=== PATIENT | female | born 1995 | race Two or more races ===

== ENCOUNTER 2023-02-16 15:29 | Outpatient (OUT) | payer BC, OTHER, SELFPAY ==
[2023-02-16 16:31] LABS: HCG Quantitative 223 mIU/mL
== END 2023-02-16 15:30 | disposition home or self-care (01) ==
LOC: LAB 15:41
PROVIDERS: Visit Provider Obstetrics & Gynecology
DX: N92.6 Irregular menstruation, unspecified (principal)
CPT/HCPCS: 36415; 84702

== ENCOUNTER 2023-02-18 15:23 | Outpatient (OUT) | payer BC, OTHER, SELFPAY ==
[2023-02-18 16:17] LABS: HCG Quantitative 393 mIU/mL
== END 2023-02-18 15:24 | disposition home or self-care (01) ==
LOC: LAB 15:25
PROVIDERS: Visit Provider Obstetrics & Gynecology
DX: N92.6 Irregular menstruation, unspecified (principal)
CPT/HCPCS: 36415; 84702

== ENCOUNTER 2023-02-21 15:47 | Outpatient (OUT) | payer BC, OTHER, SELFPAY ==
[2023-02-21 18:04] LABS: HCG Quantitative 1430 mIU/mL
== END 2023-02-21 15:48 | disposition home or self-care (01) ==
LOC: LAB 15:50
PROVIDERS: Visit Provider Obstetrics & Gynecology
DX: N92.6 Irregular menstruation, unspecified (principal)
CPT/HCPCS: 36415; 84702

== ENCOUNTER 2023-02-23 15:27 | Outpatient (OUT) | payer BC, OTHER, SELFPAY ==
[2023-02-23 16:23] LABS: HCG Quantitative 2895 mIU/mL
== END 2023-02-23 15:28 | disposition home or self-care (01) ==
LOC: LAB 15:28
PROVIDERS: Visit Provider Obstetrics & Gynecology
DX: N92.6 Irregular menstruation, unspecified (principal)
CPT/HCPCS: 36415; 84702

== ENCOUNTER 2023-03-31 13:27 | Outpatient (OUT) | payer BC, OTHER, SELFPAY ==
--- NOTE | 2023-03-31 13:29 | US_ITS ---
[address] [address] Patient Name: LULI JOSE MRN: [id number] date: 1995 Sex: F Assigned Patient Location: US Current Patient Location: Accession/Order Number: [id number] Exam Date: 03/31/2023 13:29 Report Date: 04/01/2023 07:39 At the request of: DIANDRA MONTOYA Procedure: US OB transvaginal EXAMINATION: US OB transvaginal HISTORY: MISSED MENSES COMPARISON: No relevant comparison available. FINDINGS: Ibarra intrauterine gestation Gestational sac: 4.84 cm, 10 weeks 4 days CRL: 3.76 cm, 10 weeks 5 days Yolk sac: 5.1 mm Heart rate: 166 bpm Cervix: Closed, 5.2 cm The ovaries are normal in size. Area of anechoic echogenicity adjacent to the right ovary measuring 1.6 cm possibly an exophytic cyst. Clinical age unknown Ultrasound age: 10 weeks 5 days Ultrasound JARROD: 10/22/2023 US/US OB transvaginal IMPRESSION: Viable ibarra intrauterine gestation measuring 10 weeks 5 days Electronically authenticated by: RACHELLE CÁRDENAS Date: 04/01/2023 07:39
== END 2023-03-31 13:28 | disposition home or self-care (01) ==
LOC: US 13:28
PROVIDERS: Visit Provider Obstetrics & Gynecology
DX: Z34.91 Encounter for supervision of normal pregnancy, unspecified, first trimester (principal); N92.6 Irregular menstruation, unspecified
CPT/HCPCS: 76817

== ENCOUNTER 2023-03-31 14:34 | Outpatient (OUT) | payer BC, OTHER, SELFPAY ==
[2023-03-31 15:05] LABS: Basophils Absolute Auto 0.1 10^3/uL (0.0-0.1); Basophils Percent Auto 0.6 % (0.2-2.0); Eosinophils Absolute Auto 0.4 10^3/uL (0.0-0.7); Eosinophils Percent Auto 4.4 % (0.9-7.0); Hematocrit 41.4 % (36.0-48.0); Hemoglobin 13.8 g/dL (12.0-16.0); Immature Granulocytes Abs Auto 0.04 10^3/uL (0.00-0.03); Immature Granulocytes Pct Auto 0.4 % (0.0-0.5); Lymphocytes Absolute Auto 2.1 10^3/uL (1.2-3.8); Lymphocytes Percent Auto 22.5 % (20.5-60.0); Mean Corpuscular HGB Conc 33.3 g/dL (29.9-35.2); Mean Corpuscular Hemoglobin 31.4 pg (26.7-34.0); Mean Corpuscular Volume 94.3 fL (81.0-99.0); Mean Platelet Volume 12.1 fL (9.5-13.5); Monocytes Absolute Auto 0.6 10^3/uL (0.3-0.8); Monocytes Percent Auto 6.7 % (1.7-12.0); Neutrophils Percent Auto 65.4 % (43.0-75.0); Platelet Count 234 10^3/uL (150-450); Red Blood Count 4.39 10^6/uL (4.20-5.40); Red Cell Distribution Width 11.6 % (11.0-15.0); White Blood Count 9.3 10^3/uL (4.0-11.0)
[2023-03-31 15:20] LABS: Estimated Average Glucose 100 mg/dL; Glycohemoglobin A1C 5.1 % (4.5-6.2)
[2023-03-31 15:39] LABS: Thyroid Stimulating Hormone 0.949 uIU/mL (0.358-3.740)
[2023-04-02 06:08] LABS: HBsAg Screen Negative (Negative); HCV Ab Non Reactive (Non Reactive); HIV Ab/p24 Ag Screen Non Reactive (Non Reactive)
[2023-04-02 11:08] LABS: Rapid Plasma Reagin, Quant Non Reactive titer (NonRea<1:1)
== END 2023-03-31 14:35 | disposition home or self-care (01) ==
LOC: LAB 14:35
PROVIDERS: Visit Provider Obstetrics & Gynecology
DX: Z34.91 Encounter for supervision of normal pregnancy, unspecified, first trimester (principal); N92.6 Irregular menstruation, unspecified
CPT/HCPCS: 36415; 76817; 83036; 84443; 85025; 86592; 86762; 86803; 86850; 86900; 86901; 87086; 87340; 87389

== ENCOUNTER 2023-05-26 19:51 | Outpatient (REF) | payer OTHER, SELFPAY ==
--- OUTSIDE RECORDS SUMMARY | 2023-05-26 19:55 | XMS_ITS | CCD ---
Author Name Unknown Address [address] [place] [address] Organization [facility] Care Team Providers Care Sales Promotion Officer Name Role Phone Bobby Knox Unavailable DR DIANDRA MONTOYA Attending Unavailable JAN, DR JIM Consulting Unavailable DR DIANDRA MONTOYA Admitting Unavailable LILO, DR LAUREN Primary Care Unavailable LAN PETER Attending Unavailable DIANDRA MONTOYA Attending Unavailable Oralia Calvert Primary Care Unavailab Ayush Cadena Attending Unavailable Geovany Moran Admitting Unavailab Geovany Riley Admitting Unavailab Geovany Riley Attending Unavailab Oralia Ruggiero Primary Care Unavailab Hilary Celestin Primary Care Provide r HILARY LOMBARDI Attending Unavailable ORALIA CALVERT Referring Unavailable HILARY LOMBARDI Primary [facility] Unavailable Allergies Allergy Classification Reported Allergen(s) Allergy Type Date of Onset Reaction(s) Facility (2 sources) 1-octacosanol; Translations: [OCTACOSANOL] Drug Allergy 04-14-[address] [facility] Medications Current Medications Medication Drug Class(es) Dates Sig (Normalized) Sig (Original) [id number] 200 actuat albuterol 0.09 mg/actuat metered dose inhaler (1 source) beta2-Adrenergic Agonist take 2 puff(s) by inhalation every six hours as needed for wheezing albuterol (PROVENTIL HFA;VENTOLIN HFA) 90 mcg/actuation inhaler Inhale 2 puffs every 6 (six) hours as needed for wheezing. 0 Active cetirizine hydrochloride 10 mg oral tablet (2 sources) Histamine-1 Receptor Antagonist take 1 tablet by mouth in the morning cetirizine (ZyrTEC) 10 mg tablet Take 1 tablet (10 mg total) by mouth in the morning. 0 Active ZyrTEC Allergy A ctive vit no.808-qcmv-fzsze ( PLUS VITAMIN-MINERAL) 27 mg iron- 1 mg tablet (1 source) Start: 05-16-2023 vit no.798-tjvz-vymub ( PLUS VITAMIN-MINERAL) 27 mg iron- 1 mg tablet Take 1 tablet by mouth. 0 05/16/2023 Active sertraline 100 mg oral tablet (1 source) Serotonin Reuptake Inhibitor take 1 tablet by mouth in the morning sertraline (ZOLOFT) 100 mg tablet Take 1 tablet (100 mg total) by mouth in the morning. 0 Active Completed/Discontinued Medications Medication Drug Class(es) Dates Sig (Normalized) Sig (Original) ondansetron 4 mg disintegrating oral tablet (1 source) Serotonin-3 Receptor Antagonist Start: 04-17-2022 End: 05-19-2023 take 1 tablet by mouth every eight hours as needed for nausea ondansetron ODT (ZOFRAN ODT) 4 mg disintegrating tablet Dissolve 1 tablet (4 mg total) on tongue every 8 (eight) hours as needed for nausea for up to 10 doses. 10 tablet 0 04/17/2022 05/19/2023 Discontinued Problems Active Problems Problem Classification Problem Date Documented Da te Episodic/Chronic Mood disorders (3 sources) Major depressive disorder, recurrent, moderate; Translations: [Depressive disorder] Onset: 11-05-2022 05-19-2023 Chronic Unclassified (1 source) New Patient Onset: 05-19-2023 Past or Other Problems Problem Classification Problem Date Documented Date Episodic/Chronic Immunizations and screening for infectious disease (1 source) Encounter for screening for human papillomavirus (HPV); Translations: [ENC SCREENING HUMAN PAPILLOMAVIRUS] Onset: 11-03-2021 Episodic Inflammatory diseases of female pelvic organs (1 source) Acute vaginitis Onset: 04-22-2021 Resolved: 04-22-2021 Episodic Other screening for suspected conditions (not mental disorders or infectious disease) (4 sources) Encounter for screening for malignant neoplasm of cervix; Translations: [ENC SCREENING MALIG NEOPLASM CERV] Onset: 11-02-2021 Episodic Unclassified (1 source) Onset: 05-19-2023 05-19-2023 Results Test Name Value Interpretation Reference Range Facility Lipid Panelon 11-05-2022 Cholesterol [Mass/Vol] 152 mg/dL Normal 140-200 [facility] Comment on above: Result Comment: Chol less than 200 mg/dl low risk Chol 201-239 mg/dl borderline risk Chol 240 mg/dl and greater high risk Performed By: #### L IPID, TSH3 wRFLX, [id number] #### [facility] [address] [id number] [facility] Cholesterol in HDL [Mass/Vol] 46 mg/dL Normal 23-92 [facility] Comment on above: Result Comment: HDL CHOL ATP-III CLASSIFICATION Cardiovascular Risk HDL > or equal to 60 mg/dL LOW HDL < 40 mg/dL HIGH Performed By: #### L IPID, TSH3 wRFLX, [id number] #### [facility] [address] [place] [address] [facility] Cholesterol.total/Ch olesterol in HDL [Mass ratio] 3.3 {ratio} Normal <5.0 [facility] Comment on above: Performed By: #### L IPID, TSH3 wRFLX, [id number] #### [facility] [address] [id number] [facility] LDL Cholesterol,Calculat ed 85 mg/dL Normal 0-100 [facility] Comment on above: Result Comment: LDL ATP III CLASSIFICATION LDL less than 100 mg/dL Optimal LDL 100-129 mg/dL Near or above optimal LDL 130-159 mg/dL Borderline high LDL 160-189 mg/dL High LDL greater than 189 mg/dL Very high Performed By: #### L IPID, TSH3 wRFLX, [id number] #### [facility] [address] [place] [address] [place] Triglyceride w/Reflex 106 mg/dL Normal 0-149 [facility] Comment on above: Result Comment: TRIG ATP III CLASSIFICATION TRIG less than 150 mg/dL Normal TRIG 150-199 mg/dL Borderline high TRIG 200-500 mg/dL High TRIG greater than 500 mg/dL Very high Standard traceable to the Center for Disease Conrtrol and Prevention (CDC) test method. Performed By: #### L IPID, TSH3 wRFLX, [id number] #### [address] VLDL CHOLESTEROL 21 mg/dL Normal [facility] Comment on above: Performed By: #### L IPID, TSH3 wRFLX, [id number] #### [address] Thyroid Stim Hormone w/Rflxo n 11-05-2022 Thyroid Stim Hormone w/Rflx 1.37 u[iU]/mL Normal 0.45-5.33 [facility] Comment on above: Performed By: #### L IPID, TSH3 wRFLX, [id number] #### [address] Vitamin D 25 Hydroxy Totalon 11-05-2022 Vitamin D 25 Hydroxy Total 31.4 ng/mL Normal 30-100 [facility] Comment on above: Result Comment: ALEXANDRA MIN D STATUS 25(OH)VITAMIN D RANGE (ng/mL) Deficient <20 Insufficient 20 to <30 Sufficient 30 to 100 Reference: Gerry MF,Levy NC, Gonzalo DINH, et al. Evaluation,treatment, and prevention of vitamin D deficiency; an Endocrine Society clinical practice guideline. JCEM. 2010; 96(7):1911-30. PERFORMED BY: [place] [address] PATHOLOGIST SENIOR CYBER SECURITY ANALYST MERISSA CONTI M.D. Performed By: #### L IPID, TSH3 wRFLX, [id number] #### [address] PAP ACOG PANEL 2: 21 to 29on 11-05-2021 . . [facility] Comment on above: Performed By: #### [id number] #### [facility] [address] [address] [address] Jeremiah Roberts Age Gdln ACOG Testing - Normal [facility] Comment on above: Performed By: #### [id number] #### [facility] [address] [place] [address] Dr. Jeremiah Roberts DIAGNOSIS: Comment Normal [facility] Comment on above: Result Comment: NEGA TIVE FOR INTRAEPITHELIAL LESION OR MALIGNANCY. Performed By: #### 4 [id number] #### [facility] [address] [place] [address] Dr. Jeremiah Roberts Methodology: Comment Normal [facility] Comment on above: Result Comment: This liquid based ThinPrep(R) pap test was screened with the use of an image guided system. Performed By: #### 4 [id number] #### [facility] [address] [place] [address] Dr. Jeremiah Roberts Note: Comment Normal [facility] Comment on above: Result Comment: The Pap smear is a screening test designed to aid in the detection of premalignant and malignant conditions of the uterine cervix. It is not a diagnostic procedure and should not be used as the sole means of detecting cervical cancer. Both false-positive and false-negative reports do occur. . Performed By: #### 4 [id number] #### [facility] [address] [place] [address] Dr. Jeremiah Roberts Performed by: Comment Normal [facility] Comment on above: Result Comment: Pancho Billy Ed Educational Aide (ASCP) Performed By: #### 4 [id number] #### [facility] [address] [place] [address] Dr. Jeremiah Roberts Reflex Criteria: Comment Normal [facility] Comment on above: Result Comment: The HPV DNA reflex criteria were not met with this specimen result therefore, no HPV testing was performed. . Performed By: #### 4 [id number] #### [facility] [address] [place] [address] Dr. Jeremiah Roberts Specimen adequacy: Comment Normal [facility] Comment on above: Result Comment: Sati sfactory for evaluation. Endocervical and/or squamous metaplastic cells (endocervical component) are present. Performed By: #### 4 [id number] #### [facility] [address] [place] [address] Dr. Jeremiah Roberts Consenton 08-27-2021 Consent [id number]. [id number]:127 [facility] Registrationon 08-27-2021 Registration [id number]. [id number]:127 [facility] Vital Signs Date Time Vital Sign Value Performing Clinician Deborahi lauren 05-19-2023 13:00-0500 Body mass index (BMI) [Ratio] 31.55 kg/m2 Hilary Lombardi COIL TIER-FLOUR WORKER Work Phone: [facility] 05-19-2023 13:00-0500 Body weight 75.75 kg Hilary Lombardi COIL TIER-FLOUR WORKER Work Phone: [facility] 05-19-2023 13:00-0500 Diastolic blood pressure 60 mm[Hg] Hilary Lombardi COIL TIER-FLOUR WORKER Work Phone: [facility] 05-19-2023 13:00-0500 Heart rate 96 /min Hilary Lombardi COIL TIER-FLOUR WORKER Work Phone: [facility] 05-19-2023 13:00-0500 Respiratory rate 16 /min Hilary Lombardi COIL TIER-FLOUR WORKER Work Phone: [facility] 05-19-2023 13:00-0500 SaO2% (BldA) [Mass fraction] 98 % Hilary Lombardi COIL TIER-FLOUR WORKER Work Phone: [facility] 05-19-2023 13:00-0500 Systolic blood pressure 110 mm[Hg] Hilary [facility] COIL TIER-FLOUR WORKER Work Phone: [facility] Encounters Encounter Date Encounter Type Care Provider Facility Start: 05-19-2023 End: 05-19-2023 ambulatory [facility] Start: 05-19-2023 End: 05-19-2023 Office outpatient new 20 minutes Hilary Lombardi COIL TIER-FLOUR WORKER Work Phone: [facility] Comment on above: Other depression (Pr imary Dx) Start: 04-28-2023 End: 04-28-2023 ambulatory DIANDRA MONTOYA Not Available Start: 04-14-2023 End: 04-14-2023 ambulatory LAN PETER Not Available Start: 03-31-2023 End: 03-31-2023 ambulatory LAN PETER Not Available Start: 02-19-2023 ambulatory Geovany Antoine acility:[facility] Start: 11-05-2022 End: 11-08-2022 Evaluation and management of inpatient Oralia Calvert Facility:[facility] Start: 11-02-2021 End: 11-02-[address] DIANDRA MONTOYA Facility: Start: 04-22-2021 End: 04-22-2021 ambulatory Bobby Knox Other [facility] Other Start: 04-22-2021 Telephone encounter Bobby [facility] [place] Plan of Treatment Date Care Activity Detail Author Start: 04-22-2030 DTaP,Tdap and Td Vaccines (8 - Td or Tdap) DTaP,Tdap and Td Vaccines (8 - Td or Tdap) [facility] Start: 05-19-2024 Adult BMI Follow Up Plan Adult BMI Follow Up Plan [facility] Start: 05-19-2024 Adult BMI Screening Adult BMI Screen ing [facility] Start: 05-19-2024 Tobacco Screening Tobacco Screening [facility] Start: 10-26-2023 End: 10-26-2023 Patient encounter procedure 10/26/2023 1:30 PM EDT Office Visit [facility] [address] [facility] [place] [address] Hilary Lombardi, DEON-FLOUR WORKER [address] [place] [address] [facility] Start: 12-17-2022 COVID-19 Vaccine ( season) COVID-19 Vaccine () [facility] Start: 12-17-2022 Influenza vaccination Influenza Vacc ine [facility] Start: 2018 Screening for malign ant neoplasm of cervix Pap Smear [facility] Start: 2009 Depression Screening Depression Scre ening [facility] Immunizations Immunization Date Immunization Notes Care Provider Abelardo landaverde 02-09-2022 influenza virus vaccine, unspecified formulation Hilary Dyeamita COIL TIER-FLOUR WORKER Work Phone: [facility] 03-05-2021 COVID-19 Vaccine Moderna - Documentation Purposes Only Bobby Abilio Other [facility] Other 04-22-2020 influenza, seasonal, injectable, preservative free Bobby Abilio Other [facility] Other 04-22-2020 tetanus toxoid, reduced diphtheria toxoid, and acellular pertussis vaccine, adsorbed Bobby Abilio Other [facility] Other Payers Date Payer Category Payer Self-pay 2022 Medicaid [id number] 2022 Medicaid [facility] [employer] MEDICA[employer] HMO [id number] 2022-Present [phone] [address] [place] [address] [id number] 1995 Unknown [id number] 1995 Unknown [id number] 1995 Unknown [id number] 1995 Unknown [id number] 1995 Unknown [id number] 1959 Unknown [id number] 1959 Unknown [id number] Unknown [id number] Unknown [id number] Social History Date Type Detail Facility Start: 05-29-2020 End: 05-19-2023 Sex Assigned At [facility] Start: 10-28-2016 Tobacco smoking stat [facility] Never smoked tobacco [facility] Start: 05-19-2023 Alcohol intake Lifetime non-d danielle (finding) [facility] Start: 05-29-2020 End: 05-19-2023 History of Social function [facility] Childcare Unknown [facility] Start: 1995 Sex Assigned At Not on file P [facility] History of Present illness Narrative 05-19-2023 Hilary Lombardi, COIL TIER-FLOUR WORKER - 05/19/2023 1:00 PM EST Note Date & Type Note Facility 05-19-2023 History of Presen t illness Narrative Images from the original note were not included. [address] [facility] [address] SUBJECTIVE: Patient ID: Luli Jeronimo is a 28 y.o. female. Patient presents to the office as a new patient. She does have a history of depression. She is currently 17 weeks . She has not been taking zoloft. She is going to discuss her slight depression at her OB appointment next week. Denies any other concerns. Did have asthma but has not really needed an inhaler. New Patient Pertinent negatives include no abdominal pain, arthralgias, chest pain, congestion, coughing, fatigue, fever, joint swelling, nausea, neck pain, numbness, rash, sore throat, vomiting or weakness. The following portions of the patient's history were reviewed and updated as appropriate: allergies, current medications, past family history, past medical history, past social history, past surgical history and problem list. REVIEW OF SYSTEMS: Review of Systems Constitutional: Negative for fatigue, fever and unexpected weight change. HENT: Negative for congestion, ear pain, sinus pressure, sinus pain and sore throat. Eyes: Negative for photophobia, pain, discharge and visual disturbance. Respiratory: Negative for cough and shortness of breath. Cardiovascular: Negative for chest pain, palpitations and leg swelling. Gastrointestinal: Negative for abdominal pain, diarrhea, nausea and vomiting. Endocrine: Negative for polydipsia, polyphagia and polyuria. Genitourinary: Negative for difficulty urinating, frequency, hematuria and urgency. Musculoskeletal: Negative for arthralgias, gait problem, joint swelling and neck pain. Skin: Negative for pallor and rash. Neurological: Negative for dizziness, weakness, light-headedness and numbness. Psychiatric/Behavioral: Negative for sleep disturbance. The patient is not nervous/anxious. PHYSICAL EXAMINATION: Vitals: 05/19/23 1300 BP: 110/60 Pulse: 96 Resp: 16 SpO2: 98% Weight: 75.8 kg (167 lb) Physical Exam Constitutional: Appearance: She is well-developed. HENT: Head: Normocephalic and atraumatic. Right Ear: External ear normal. Left Ear: External ear normal. Eyes: Conjunctiva/sclera: Conjunctivae normal. Pupils: Pupils are equal, round, and reactive to light. Cardiovascular: Rate and Rhythm: Normal rate and regular rhythm. Heart sounds: Normal heart sounds. Pulmonary: Effort: Pulmonary effort is normal. Breath sounds: Normal breath sounds. Musculoskeletal: Cervical back: Normal range of motion. Skin: General: Skin is warm and dry. Neurological: Mental Status: She is alert and oriented to person, place, and time. Psychiatric: Mood and Affect: Mood normal. ASSESSMENT/PLAN: Luli was seen today for new patient. Diagnoses and all orders for this visit: Other depression Follow-up: Will follow up for wellness after she has the baby She is going to talk to OB next week about depression medication options Patient noted to have elevated BMI and the following intervention(s) were applied: encouragement to exercise. COURTNEY Chase 05/19/23 1322 documented in this encounter [facility] Evaluation note 04-22-2021 Note Date & Type Note Facility 04-22-2021 Evaluation note Encounter Date Diagnosis Assessment Notes Apr, Acute vaginitis (ICD-10 - N76.0) [facility] Other Evaluation note Note Date & Type Note Facility Evaluation note Diagnosis Other depression- Primary documented in this encounter [facility] History general Narrative - Reported Note Date & Type Note Facility History general Narrative - Reported Type Medical History asthma Hospitalization History child x 2 [facility] Other Instructions Attachments Note Date & Type Note Facility Instructions The following attachments cannot be sent through Care Everywhere.Depression (Jamaican)documented in this encounter [facility] Summary Purpose Family History No Family History Records FoundNo Family History Records FoundNo Family History Records FoundNo Family History Records FoundNo Family History Records Found Advance Directives No Advanced Directives Records FoundNo Advanced Directives Records FoundNo Advanced Directives Records FoundNo Advanced Directives Records FoundNo Advanced Directives Records Found Additional Source Comments INFORMATION SOURCE (unrecogn ized section and content) DATE CREATED AUTHOR 08/29/2021 [place] [facility] DATE CREATED AUTHOR AUTHOR'S ORGANIZ ATION 03/20/[address] [facility] p[facility] DATE CREATED AUTHOR AUTHOR'S ORGANIZ ATION 04/29/2023 [facility] EPIC DATE CREATED AUTHOR AUTHOR'S ORGANIZ ATION 05/14/2023 [facility] DATE CREATED AUTHOR AUTHOR'S ORGANIZ ATION 05/22/2023 [facility] Reason for Visit (unrecogniz ed section and content) Reason Comments New Patient Care Teams (unrecognized sec tion and content) Sales Promotion Officer Relationship Specialty Start Date End Date Hilary Lombardi APRN-FLOUR WORKER [address] [place] [address] PCP - General Family Medicine 05/19/23 FOR RECORDS PERTAINING TO PATIENTS WHO ARE OR HAVE BEEN ENROLLED IN A CHEMICAL DEPENDENCY/SUBSTANCEABUSE PROGRAM, SOME INFORMATION MAY BE OMITTED. This clinical summary was aggregated from multiple sources. Caution should be exercised in using it in the provision of clinical care. This summary normalizes information from multiple sources, and as a consequence, information in this document may materially change the coding, format and clinical context of patient data. In addition, data may be omitted in some cases. CLINICAL DECISIONS SHOULD BE BASED ON THE PRIMARY CLINICAL RECORDS. [facility]. provides no warranty or guarantee of the accuracy or completeness of information in this document.
[2023-06-01 13:12] LABS: Age Gdln ACOG Testing Note (.); IGP, rfx Aptima HPV ASCU Note (.)
== END 2023-05-26 19:52 | disposition home or self-care (01) ==
LOC: LAB 19:51
PROVIDERS: Visit Provider Physician Assistant
DX: Z01.419 Encounter for gynecological examination (general) (routine) without abnormal findings (principal)
CPT/HCPCS: G0145

== ENCOUNTER 2023-06-17 12:46 | Outpatient (OUT) | payer OTHER, SELFPAY ==
--- NOTE | 2023-06-17 12:52 | US_ITS ---
[address] [address] Patient Name: LULI JOSE MRN: [id number] date: 1995 Sex: F Assigned Patient Location: US Current Patient Location: US Accession/Order Number: [id number] Exam Date: 06/17/2023 12:53 Report Date: 06/17/2023 13:50 At the request of: DIANDRA MONTOYA Procedure: US OB anatomy EXAMINATION: US OB anatomy HISTORY: screening, for anatomic survey Z36.89 COMPARISON: No relevant comparison available. TECHNIQUE: Transabdominal sonographic examination was performed for obstetrical and evaluation. FINDINGS: Number: 1 Heart Rate: 149.2 bpm H.B. /min Amniotic Fluid Volume: Subjectively normal position: Cephalic presentation, longitudinal lie Placental Location: Posterior fundal. Grade 0. Placental edge 5.0 cm from the internal os Cervix Length: 4.9 cm, closed Normal anatomy: Lateral ventricles, cerebellum, posterior fossa, nose, lips, orbits, four-chamber heart, RVOT, LVOT, diaphragm, stomach, kidneys, abdominal cord insertion, bladder, umbilical arteries, three-vessel cord, spine, extremities BIOMETRY: BPD: 5.7 cm 23 weeks 3 days , 93% HC: 20.7 cm 22 weeks 5 days, 76% AC: 18.0 cm 22 weeks 6 days, 75% FL: 3.7 cm 21 weeks 5 days , 35% EFW:505.5 grams; 1 lb. 2 oz., 75% FL/AC: 20.4 FL/BPD: 64.7 HC/AC: 1.1 GESTATIONAL AGE: Age by EDC: 21 weeks 6 days Age by current US: 22 weeks 5 days JARROD by current US: 10/16/2023 JARROD by EDC: 10/22/2023 US/US OB anatomy IMPRESSION: Normal anatomy scan Closed cervix measuring 4.9 cm in length *Reference: [employer] Practice Guideline for the performance of Obstetric Ultrasound Examinations, January 16, 2007. Electronically authenticated by: RACHELLE CÁRDENAS Date: 06/17/2023 13:50
--- NOTE | 2023-06-17 12:53 | US_ITS ---
[address] [address] Patient Name: LULI JOSE MRN: [id number] date: 1995 Sex: F Assigned Patient Location: Current Patient Location: Accession/Order Number: [id number] Exam Date: 06/17/2023 12:53 Report Date: 06/17/2023 14:03 At the request of: DIANDRA MONTOYA Procedure: US OB cervical length EXAMINATION: US OB cervical length HISTORY: screening, , for anatomic survey COMPARISON: No relevant comparison available. FINDINGS: Closed cervix measuring 4.9 cm in length The placental edge is 5.0 cm from the internal cervical os US/US OB cervical length IMPRESSION: Closed cervix measuring 4.9 cm in length Electronically authenticated by: RACHELLE CÁRDENAS Date: 06/17/2023 14:03
--- OUTSIDE RECORDS SUMMARY | 2023-06-17 12:54 | XMS_ITS | CCD ---
Author Name Unknown Address [address] [place] [id number] Organization [facility] Care Team Providers Care Raisin Separator Operator Name Role Phone Bobby Knox Unavailable DR DIANDRA ROY Attending Unavailable JAN, DR JIM Consulting Unavailable DR DIANDRA ROY Admitting Unavailable LILO, DR LAUREN Primary Care Unavailable Oralia Calvert Primary Care Unavailab Ayush Cadena Attending Unavailable Geovany Moran Admitting Unavailab Geovany Riley Admitting Unavailab Geovany Riley Attending Unavailab Oralia Ruggiero Primary Care Unavailab Hilary Celestin Primary [facility] Provide r HILARY LOMBARDI Attending Unavailable ORALIA CALVERT Referring Unavailable HILARY LOMBARDI Primary Care Unavailable ANNEMARIE PETER Attending Unavailable DIANDRA ROY Attending Unavailable ANNEAMRIE PETER Attending Unavailable Unavailable Primary Care Provider Unavailabl e Allergies Allergy Classification Reported Allergen(s) Allergy Type Date of Onset Reaction(s) Facility (6 sources) 1-octacosanol; Translations: [OCTACOSANOL] Drug [facility]20[facility] Medications Current Medications Medication Drug Class(es) Dates Sig (Normalized) Sig (Original) [id number] 200 actuat albuterol 0.09 mg/actuat metered dose [...] morning. 0 Active ZyrTEC Allergy A ctive citalopram 20 mg oral tablet (4 sources) Serotonin Reuptake Inhibitor Start: 05-26-2023 End: 05-25-2024 take 1 tablet by mouth in the morning citalopram (CeleXA) 20 MG tablet Indications: Anxiety, generalized (CMS/HCC) Take 1 tablet (20 mg) by mouth in the morning. 30 tablet 11 05/26/2023 05/25/2024 Active magnesium oxide 400 mg oral capsule (3 sources) Start: 04-28-2023 End: 05-28-2023 take 1 capsule by mouth in the morning magnesium oxide 400 MG capsule Indications: Headache in , antepartum Take 1 capsule (400 mg) by mouth in the morning. 30 capsule 3 04/28/2023 05/28/2023 Active 27-1 MG tablet (4 sources) Start: 05-16-2023 take 1 tablet by mouth once daily in the morning 27-1 MG tablet Indications: Missed menses TAKE 1 TABLET BY MOUTH EVERY DAY IN THE MORNING 30 tablet 0 05/16/2023 Active vit no.[id number] ( PLUS VITAMIN-MINERAL) 27 mg iron- 1 mg tablet (1 source) Start: 05-16-2023 vit no.[id number] ( PLUS VITAMIN-MINERAL) 27 mg iron- 1 [...] Active Problems Problem Classification Problem Date Documented Date Episodic/Chronic Anxiety disorders (2 sources) Generalized anxiety disorder; Translations: [Generalized anxiety disorder] 05-26-2023 Chronic Immunizations and screening for infectious disease (3 sources) Encounter for screening for human papillomavirus (HPV); Translations: [Exposure to sexually transmissible disorder] Onset: 11-03-2021 05-26-2023 Episodic Mood disorders (3 sources) Major depressive disorder, recurrent, moderate; Translations: [Depressive disorder] Onset: 11-05-2022 05-19-2023 Chronic Other female genital disorders (2 sources) Vaginal discharge; Translations: [Other specified noninflammatory disorders of vagina] 05-26-2023 Episodic Other and delivery including normal (2 sources) Second trimester ; Translations: [Encounter for supervision of normal , unspecified, second trimester] 05-20-2023 Episodic Other screening for suspected conditions (not mental disorders or infectious disease) (6 sources) Encounter for screening for malignant neoplasm of cervix; Translations: [Patient encounter status] Onset: 11-02-2021 Episodic Unclassified (1 source) New Patient Onset: 05-19-2023 Past or Other Problems Problem Classification Problem Date Documented Da te Episodic/Chronic Inflammatory diseases of female pelvic organs (1 source) Acute vaginitis Onset: 04-22-2021 Resolved: 04-22-2021 Episodic Unclassified (1 source) Onset: 05-19-2023 05-19-2023 Results Test Name Value Interpretation Reference Range Facility IGP,APTIMA HPV,AGE GDLNon AGE GDLN ACOG TESTING Note . [facility] Comment on above: TESTS RESULT FLAG UN ITS REF RANGE LAB Clinician Provided Cytology Information Source.............Endocervix No. of containers..01 ThinPrep Vial Age Algo ACOG Alyssa... FLAG LEGEND: L-Low Normal,H-High Normal,LL-Alert Low,HH-Alert High <-Panic Low,>-Panic High,A-Abnormal,AA-Critical Abnormal Performed at: 01 =[facility] [address] Karrie Jimenez MD, IGP, RFX APTIMA HPV ASCU Note . [facility] Comment on above: TESTS RESULT FLAG UN ITS REF RANGE LAB DIAGNOSIS: 02 NEGATIVE FOR INTRAEPITHELIAL LESION OR MALIGNANCY. Specimen adequacy: 02 Satisfactory for evaluation. No endocervical component is identified. Performed by: 02 Bk Hays, Credit Manager ([facility]) . 02 Note: Note 02 The Pap smear is a screening test designed to aid in the detection of premalignant and malignant conditions of the uterine cervix. It is not a diagnostic procedure and should not be used as the sole means of detecting cervical cancer. Both false-positive and false-negative reports do occur. Test Methodology: Note 02 This liquid based ThinPrep(R) pap test was screened with the use of an image guided system. . 02 The HPV DNA reflex criteria were not met with this specimen result therefore, no HPV testing was performed. FLAG LEGEND: L-Low Normal,H-High Normal,LL-Alert Low,HH-Alert High <-Panic Low,>-Panic High,A-Abnormal,AA-Critical Abnormal Performed at: [address] [address] Karrie Jimenez MD, Performed at: =[facility] [id number] Fish Egg Packer: Karrie Jimenez MD, Phone: [phone] Performed at: [address] [id number] Fish Egg Packer: Karrie Jimenez MD, Phone: [phone] [facility] Health[facility] e URETHRITIS/DISCHARGE PLUS VA GINITIS (HTRX)on 05-27-2023 ATOPOBIUM VAGINAE 16.087 Abnormal [facility] althcare ATOPOBIUM VAGINAE Detected Abnormal [facility] BVAB 2,3 (BACTERIAL VAGINOSIS ASSOCIATED BACTERIA 2, 3); MOBILUNCUS SPP 20.57 Abnormal [facility] BVAB 2,3 (BACTERIAL VAGINOSIS ASSOCIATED BACTERIA 2, 3); MOBILUNCUS SPP Detected Abnormal [facility] Healthcare LYN ALBICANS, PARAPSILOSIS, TROPICALIS 0 [facility] LYN ALBICANS, PARAPSILOSIS, TROPICALIS Not detected [facility] LYN GLABRATA 0 [facility] LYN GLABRATA Not detected [facility] LYN KRUSEI 0 [facility] LYN KRUSEI Not [facility] CHLAMYDIA TRACHOMATIS 0 [facility] CHLAMYDIA TRACHOMATIS Not detected [facility] DFR (A1, A5), SUL (1,2) 0 PPM [facility] DFR (A1, A5), SUL (1,2) Not detected [facility] ERMB, C; MEFA 24.689 Abnormal PPM [facility] ERMB, C; MEFA Detected Abnormal [facility] GARDNERELLA VAGINALIS 18.724 Abnormal [facility] GARDNERELLA VAGINALIS Detected Abnormal [facility] Interpretation and review of laboratory results Abnormal [facility] MEGASPHAERA (TYPES 1, 2) 0 [facility] MEGASPHAERA (TYPES 1, 2) Not detected [facility] MYCOPLASMA GENITALIUM 0 [facility] MYCOPLASMA GENITALIUM Not detected [facility] NEISSERIA GONORRHOEAE 0 [facility] NEISSERIA GONORRHOEAE Not detected [facility] TET B, TET M 23.465 Abnormal PPM [facility] Healthc are TET B, TET M Detected Abnormal [facility] are TRICHOMONAS VAGINALIS 0 [facility] TRICHOMONAS VAGINALIS Not detected [facility] Urinalysis macro (dipstick) panel (U)on 05-26-2023 Bilirubin, UA Negative Negative - 4(70) +++ mg/dL [facility] Blood, UA Negative Negative - 50 Xander/mcL [facility] Clarity, UA Clear [facility] re Color, UA Yellow [facility] Glucose, UA Negative Negative - 1999(110) ++++ mg/dL [facility] Interpretation and review of laboratory results Abnormal [facility] Ketones, UA Negative Negative - 160(16) ++++ mg/dL [facility] Leukocytes, UA Negative Negative - 500+++ Vince/mcL [facility] Nitrite, UA Negative Negative - Positive [facility] pH, UA 5.5 5 - 9 [facility] e Protein, UA Positive Negative - 1999(20) ++++ mg/dL [facility] Spec Grav, UA 1.020 1 - 1.03 [facility] Urobilinogen, UA 1.0 0.2 - 12 mg/dL [facility] Lipid Panelon 11-05-2022 Cholesterol [Mass/Vol] 152 mg/dL Normal 140-200 [facility] Comment on above: Result Comment: Chol less than 200 mg/dl low risk Chol 201-239 mg/dl borderline risk Chol 240 mg/dl and greater high risk Performed By: #### L IPID, TSH3 wRFLX, [id number] #### [facility] [address] Cholesterol in HDL [Mass/Vol] 46 mg/dL Normal 23-92 [facility] Comment on above: Result Comment: HDL CHOL ATP-III CLASSIFICATION Cardiovascular Risk HDL > or equal to 60 mg/dL LOW HDL < 40 mg/dL HIGH Performed By: #### L IPID, TSH3 wRFLX, [id number] #### [facility] [address] [id number] [facility] Cholesterol.total/Ch olesterol in HDL [Mass ratio] 3.3 {ratio} Normal <5.0 [facility] Comment on above: Performed By: #### L IPID, TSH3 wRFLX, [id number] #### [facility] [address] [id number] [facility] LDL Cholesterol,Calculat ed 85 mg/dL Normal 0-100 [facility] Comment on above: Result Comment: LDL ATP III CLASSIFICATION LDL less than 100 mg/dL Optimal LDL 100-129 mg/dL Near or above optimal LDL 130-159 mg/dL Borderline high LDL 160-189 mg/dL High LDL greater than 189 mg/dL Very high Performed By: #### L IPID, TSH3 wRFLX, [id number] #### [facility] [address] [id number] [facility] Triglyceride w/Reflex 106 mg/dL Normal 0-149 [facility] Comment on above: Result Comment: TRIG ATP III CLASSIFICATION TRIG less than 150 mg/dL Normal TRIG 150-199 mg/dL Borderline high TRIG 200-500 mg/dL High TRIG greater than 500 mg/dL Very high Standard traceable to the Center for Disease Conrtrol and Prevention (CDC) test method. Performed By: #### L IPID, TSH3 wRFLX, [id number] #### [facility] [address] [id number] [facility] VLDL CHOLESTEROL 21 mg/dL Normal [facility] Comment on above: Performed By: #### L IPID, TSH3 wRFLX, [id number] #### [facility] [address] [id number] [facility] Thyroid Stim Hormone w/Rflxo n 11-05-2022 Thyroid Stim Hormone w/Rflx 1.37 u[iU]/mL Normal 0.45-5.33 [facility] Comment on above: Performed By: #### L IPID, TSH3 wRFLX, [id number] #### [facility] [address] Vitamin D 25 Hydroxy Totalon 11-05-2022 Vitamin D 25 Hydroxy Total 31.4 ng/mL Normal 30-100 [facility] Comment on above: Result Comment: ALEXANDRA MIN D STATUS 25(OH)VITAMIN D RANGE (ng/mL) Deficient <20 Insufficient 20 to <30 Sufficient 30 to 100 Reference: Gerry MF,Levy NC, Gonzalo DINH, et al. Evaluation,treatment, and prevention of vitamin D deficiency; an Endocrine Society clinical practice guideline. JCEM. 2010; 96(7):1911-30. PERFORMED BY: [place] [address] PATHOLOGIST LABORER [employer] MERISSA CONTI M.D. Performed By: #### L IPID, TSH3 wRFLX, [id number] #### [facility] [address] [place] [address] PAP ACOG PANEL 2: 21 to 29on 11-05-2021 . . Normal [facility] Comment on above: Performed By: #### [id number] #### [facility] [address] [place] [address] Dr. Jeremiah Roberts Age Gdln ACOG Testing - [facility] Comment on above: Performed By: #### [id number] #### [facility] [address] [address] [address] Jeremiah Roberts DIAGNOSIS: Comment Normal [facility] Comment on above: Result Comment: NEGA TIVE FOR INTRAEPITHELIAL LESION OR MALIGNANCY. Performed By: #### 4 [id number] #### [facility] [address] [address] [address] Jeremiah Roberts Methodology: Comment [facility] Comment on above: Result Comment: This liquid based ThinPrep(R) pap test was screened with the use of an image guided system. Performed By: #### [id number] #### [facility] [address] [place] [address] Dr. Jeremiah Roberts Note: Comment [facility] Comment on above: Result Comment: The Pap smear is a screening test designed to aid in the detection of premalignant and malignant conditions of the uterine cervix. It is not a diagnostic procedure and should not be used as the sole means of detecting cervical cancer. Both false-positive and false-negative reports do occur. . Performed By: #### 4 [id number] #### [facility] [address] [place] [address] Dr. Jeremiah Roberts Performed by: Comment Normal [facility] Comment on above: Result Comment: Pancho Billy, Credit Manager (ASCP) Performed By: #### [id number] #### [facility] [address] [place] [address] Dr. Jeremiah Roberts Reflex Criteria: Comment [facility] Comment on above: Result Comment: The HPV DNA reflex criteria were not met with this specimen result therefore, no HPV testing was performed. . Performed By: #### 4 [id number] #### [facility] [address] [place] [address] Dr. Jeremiah Roberts Specimen adequacy: Comment [facility] Comment on above: Result Comment: Sati sfactory for evaluation. Endocervical and/or squamous metaplastic cells (endocervical component) are present. Performed By: #### 4 [id number] #### [facility] [address] [place] [address] Dr. Jeremiah Roberts [place] 08-27-2021 Consent [id number]# 1.00CD:127 Normal [facility] Registrationon 08-27-2021 Registration [id number]# 1.00CD:127 Normal [facility] Vital Signs Date Time Vital Sign Value Performing Clinician Facility 05-26-2023 15:46-0500 Body mass index (BMI) [Ratio] 30.54 kg/m2 Annemarie NOGUERA Work Phone: [facility] 05-26-2023 15:46-0500 Body weight 75.75 kg Annemarie NOGUERA Work Phone: [facility] 05-26-2023 15:46-0500 Diastolic blood pressure 64 mm[Hg] Annemarie NOGUERA Work Phone: [facility] 05-26-2023 15:46-0500 Systolic blood pressure 106 mm[Hg] Annemarie NOGUERA Work Phone: [facility] 05-19-2023 13:00-0500 Body mass index (BMI) [Ratio] 31.55 kg/m2 Hilary Pikeshermanchter TEMPERER-BUTTERMILK DRIER OPERATOR Work Phone: [facility] 05-19-2023 13:00-0500 Body weight 75.75 kg Hilary Dyechter TEMPERER-BUTTERMILK DRIER OPERATOR Work Phone: [facility] 05-19-2023 13:00-0500 Diastolic blood pressure 60 mm[Hg] Hilary Glendyshermanchter TEMPERER-BUTTERMILK DRIER OPERATOR Work Phone: [facility] 05-19-2023 13:00-0500 Heart rate 96 /min Hilary Glendyshermanchter TEMPERER-BUTTERMILK DRIER OPERATOR Work Phone: [facility] 05-19-2023 13:00-0500 Respiratory rate 16 /min Hilary Dyechter TEMPERER-BUTTERMILK DRIER OPERATOR Work Phone: [facility] 05-19-2023 13:00-0500 SaO2% (BldA) [Mass fraction] 98 % Hilary Dyechter TEMPERER-BUTTERMILK DRIER OPERATOR Work Phone: [facility] 05-19-2023 13:00-0500 Systolic blood pressure 110 mm[Hg] Hilary PikeshermanLX Ventureser TEMPERER-BUTTERMILK DRIER OPERATOR Work Phone: [facility] Encounters Encounter Date Encounter Type Care Provider Facility Start: 05-26-2023 End: 05-26-2023 ambulatory ANNEMARIE PETER Not Available Start: 05-26-2023 End: 05-26-2023 Patient encounter procedure Annemarie NOGUERA Work Phone: [facility] Work Phone: Start: 05-26-2023 End: 05-26-2023 Periodic preventive med est patient 18-39 yrs Annemarie NOGUERA Work Phone: [facility] Comment on above: Well woman exam with routine gynecological exam; Second trimester ; Screening, , for anatomic survey; Vaginal discharge; STD exposure; Anxiety, generalized (CMS/HCC) Start: 05-26-2023 [facility] Result Encounter Annemarie NOGUERA Work Phone: [facility] Unsolicited Start: 05-26-2023 External Result Encounter Annemarie NOGUERA Work Phone: [facility] Unsolicited Start: 05-26-2023 External Result Encounter Annemarie NOGUERA Work Phone: [facility] Unsolicited Start: 05-19-2023 End: 05-19-2023 ambulatory [facility] Start: 05-19-2023 End: 05-19-2023 Office outpatient new 20 minutes [facility] TEMPERER-BUTTERMILK DRIER OPERATOR Work Phone: [facility] Comment on above: Other depression (Pr imary Dx) Start: 04-28-2023 End: 04-28-2023 ambulatory DIANDRA ROY Not Available Start: 04-14-2023 End: 04-14-2023 ambulatory ANNEMARIE PETER Not Available Start: 03-31-2023 End: 03-31-2023 ambulatory ANNEMARIE PETER Not Available Start: 02-19-2023 ambulatory Geovany Antoine acility:[facility] Start: 11-05-2022 End: 11-08-2022 Evaluation and management of inpatient Oralia Anjelica Calvert Facility:[facility] Start: 11-02-2021 End: 11-02-[address] DIANDRA ROY Facility: Start: 04-22-2021 End: 04-22-2021 ambulatory Bobby Knox Other [employer] Other Start: 04-22-2021 Telephone encounter Bobby Antoine [facility] [place] Procedures Date Procedure Procedure Detail Performing Clinician Start: 05-26-2023 URETHRITIS/DISCHARGE PLUS VAGINITIS (HTRX) Annemarie NOGUERA Work Phone: Start: 05-26-2023 IGP,APTIMA HPV,AGE GDLN Annemarie NOGUERA Work Phone: Start: 05-26-2023 Urnls dip stick/tabl et rgnt non-auto w/o micrscp Annemarie NOGUERA Work Phone: Plan of Treatment Date Care Activity Detail Author Start: 04-22-2030 DTaP,Tdap and Td Vaccines (8 - Td or Tdap) DTaP,Tdap and Td Vaccines (8 - Td or Tdap) [facility] Start: 05-19-2024 Adult BMI Follow Up Plan Adult BMI Follow Up Plan [facility] Start: 05-19-2024 Adult BMI Screening Adult BMI Screen ing [facility] Start: 05-19-2024 Tobacco Screening Tobacco Screening [facility] Start: 10-26-2023 End: 10-26-2023 Patient encounter procedure 10/26/2023 1:30 PM EDT Office Visit [facility] [address] [place] [id number] [facility] [address] [place] [address] [facility] Start: 06-27-2023 End: 06-27-2023 Patient encounter procedure 06/27/2023 2:10 PM EDT Routine [facility] [address] [place] [address] Diandra Roy, [address], [place] [id number] [facility] Start: 06-07-2023 End: 06-07-2023 Professional / ancillary services management 06/07/2023 1:00 PM EST Ancillary Procedure [facility] [address] [place] [address] [facility] Start: 05-26-2023 End: 08-24-2023 Alpha fetoprotein, maternal Alpha fetoprotein, maternal Lab Routine Second trimester Expected: 05/26/2023 (Approximate), Expires: 08/24/2023 [facility] Comment on above: Expected: 05/26/2023 (Approximate), Expires: 08/24/2023 Start: 05-26-2023 End: 05-26-2024 US for US OB ANATOMY SINGLE W US OB CERVICAL LENGTH Imaging Routine Screening, , for anatomic survey Expected: 05/26/2023 (Approximate), Expires: 05/26/2024 [facility] Comment on above: Expected: 05/26/2023 (Approximate), Expires: 05/26/2024 Start: 12-17-2022 COVID-19 Vaccine ( season) COVID-19 Vaccine ( season) [facility] Start: 12-17-2022 Influenza vaccination [facility] Start: 2018 Screening for malign ant neoplasm of cervix Pap Smear [facility] Start: 2009 Depression Screening Depression [facility] CHLAMYDIA TRACHOMATI S (GENITO/STI) CHLAMYDIA TRACHOMATIS (GENITO/STI) Lab Routine STD exposure Ordered: 05/26/2023 [facility] Comment on above: Ordered: 05/26/2023 Cytology Cervical or vaginal smear or scraping study Pap Smear Pathology and Cytology Routine Well woman exam with routine gynecological exam Ordered: 05/26/2023 [facility] Work Phone: Comment on above: Ordered: 05/26/2023 Neisseria gonorrhoea e DNA [Presence] in Unspecified specimen by UNA with probe detection Neisseria gonorrhea DNA probe, direct Lab Routine STD exposure Ordered: 05/26/2023 [facility] Comment on above: Ordered: 05/26/2023 SURESWAB(R) ADVANCED VAGINITIS PLUS, TMA SURESWAB(R) ADVANCED VAGINITIS PLUS, TMA Pathology and Cytology Routine Vaginal discharge Ordered: 05/26/2023 [facility] Comment on above: Ordered: 05/26/2023 Immunizations Immunization Date Immunization Notes Care Provider Abelardo musa 02-09-2022 influenza virus vaccine, unspecified formulation Hilary Lombardi TEMPERER-BUTTERMILK DRIER OPERATOR Work Phone: [employer] 03-05-2021 COVID-19 Vaccine Moderna - Documentation Purposes Only Bobby Knox Other [employer] Other 04-22-2020 influenza, seasonal, injectable, preservative free Bobby Knox Other [employer] Other 04-22-2020 tetanus toxoid, reduced diphtheria toxoid, and acellular pertussis vaccine, adsorbed Bobby Knox Other [employer] Other Payers Date Payer Category Payer Self-pay 2022 Medicaid [id number] 2022 Unknown [id number] 2021 Unknown BCBS BCBS [id number] 2021-Present [phone] [address] [place] [address] [id number] 1997 Unknown [id number] 1997 Unknown [id number] 1997 Unknown [id number] 1997 Unknown [id number] [id number] 1997 Unknown [id number] [id number] 1997 Unknown [id number] 1959 Unknown [id number] 2.1 [id number] 1959 Unknown [id number] Unknown [id number] [id number] Unknown [id number] Social History Date Type Detail Facility Start: 11-05-2022 End: 05-19-2023 Sex Assigned At [facility] Start: 10-28-2016 End: 11-05-2022 Tobacco smoking status NHIS Never smoked tobacco [facility] Start: 05-19-2023 Alcohol intake Lifetime non-d danielle (finding) [facility] Start: 11-05-2022 End: 05-19-2023 History of Social function [facility] Childcare Unknown [facility] Start: 1997 Sex Assigned At Not on file [facility] Start: 11-05-2022 Tobacco use and exposure Smokeless tobacco non-user [facility] Start: 05-26-2023 Alcohol intake Ex-drinker (finding) [facility] Start: 11-05-2022 Alcohol Comment Occasional alcohol u se [facility] Start: 01-29-2023 [facility] hcare History of Present illness Narrative 05-26-2023 POORNIMA Hughes - 05/26/2023 3:30 PM EST Note Date & Type Note Facility 05-26-2023 History of Presen t illness Narrative Reason for Appointment: Patient ID: Anne Jeronimo is a 28 y.o. female who presents for Well Women Visit and Routine Visit Patient presents today for Annual Exam and Return OB appointment. Current Medications: has a current medication list which includes the following prescription(s): magnesium oxide and . Medical History: Active Ambulatory Problems Diagnosis Date Noted No Active Ambulatory Problems Resolved Ambulatory Problems Diagnosis Date Noted No Resolved Ambulatory Problems Past Medical History: Diagnosis Date Asthma (CMS/HCC) Asthma, mild intermittent (CMS/HCC) BMI 26.0-26.9,adult Chronic allergic rhinitis Contraception management Encounter for gynecological examination (general) (routine) without abnormal findings Encounter for support and coordination of transition of care History of medical problems Irregular periods/menstrual cycles mood disturbance Scoliosis of lumbosacral spine, unspecified scoliosis type Sleep disorder Syncope, unspecified syncope type Tension headache Family History Problem Relation Name Age of Onset Depression Mother Hypothyroidism Mother Migraines Mother Diabetes Father No Known Problems Sister Asthma Brother younger male Other (reactive airways syndrome) Brother younger male No Known Problems Brother No Known Problems Brother No Known Problems Brother No Known Problems Brother Hypertension Maternal Grandmother Heart disease Maternal Grandmother heart rhythm No Known Problems Son No Known Problems Son Social History Tobacco Use Smoking status: Never Smokeless tobacco: Never Substance Use Topics Alcohol use: Not Currently Comment: Occasional alcohol use Drug use: Never Past Surgical History: Procedure Laterality Date OTHER SURGICAL HISTORY 05/2018 Nexplanon implant on left arm VAGINAL DELIVERY 201505-25-18 Allergies Allergen Reactions Seasonal Ic [Octacosanol] Review of Systems: Review of Systems Constitutional: Negative. HENT: Negative. Eyes: Negative. Respiratory: Negative. Cardiovascular: Negative. Gastrointestinal: Negative. Genitourinary: Negative. Musculoskeletal: Negative. Skin: Negative. Neurological: Negative. All other systems reviewed and are negative. Hematological: Negative. Endocrine: Negative. Allergic/Immunologic: Negative. Objective Physical Exam Constitutional: Appearance: Normal appearance. She is well-developed. Genitourinary: Vulva normal. Right Adnexa: not tender and no mass present. Left Adnexa: not tender and no mass present. Cervical discharge present. Cervical exam comments: Normal vaginal drainage. Breasts: Breasts are soft. Right: Normal. Left: Normal. Cardiovascular: Rate and Rhythm: Normal rate and regular rhythm. Pulmonary: Effort: Pulmonary effort is normal. Breath sounds: Normal breath sounds. Abdominal: General: Bowel sounds are normal. There is no distension. Palpations: Abdomen is soft. Tenderness: There is no abdominal tenderness. There is no guarding or rebound. Musculoskeletal: General: No swelling. Normal range of motion. Right lower leg: No edema. Left lower leg: No edema. Neurological: Mental Status: She is alert and oriented to person, place, and time. Skin: General: Skin is warm and dry. Psychiatric: Mood and Affect: Mood normal. Behavior: Behavior normal. Vitals and nursing note reviewed. Exam conducted with a sprayer operator present. Vitals: Estimated body mass index is 30.54 kg/m as calculated from the following: Height as of 11/11/21: 5' 2 . Weight as of this encounter: 167 lb. BP: 106/64 No LMP recorded (lmp unknown). Patient is . Assessment/Plan Encounter Diagnoses Name Primary? Well woman exam with routine gynecological exam Second trimester Screening, , for anatomic survey Vaginal discharge STD exposure Patient presents today for an annual exam/routine obstetrics appointment. Patient is currently 18w5d . Patient is doing well and states she has no complaints. Pap/cultures was obtained without difficulty and patient was given [facility] order to have obtained. 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 [id number] [facility] [id number] SUBJECTIVE: Patient ID: Anne Jeronimo is a 28 y.o. female. Patient [...] Psychiatric: Mood and Affect: Mood normal. ASSESSMENT/PLAN: Anne was seen today for new patient. Diagnoses and all orders for this visit: Other depression Follow-up: Will follow up for wellness after she has the baby She is going to talk to OB next week about depression medication options Patient noted to have elevated BMI and the following intervention(s) were applied: encouragement to exercise. COURTNEY Chase 05/19/23 1322 documented in this encounter [facility] Evaluation note 04-22-2021 Note Date & Type Note Facility 04-22-2021 Evaluation note Encounter Date Diagnosis Assessment Notes Apr, Acute vaginitis (ICD-10 - N76.0) [facility] Other Evaluation note Note Date & Type Note Facility Evaluation note Diagnosis Other depression- Primary documented in this encounter [facility] Evaluation note Note Date & Type Note Facility Evaluation note Diagnosis Well woman exam with routine gynecological exam Routine gynecological examination Second trimester state, incidental Screening, , for anatomic survey Encounter for anatomic survey Vaginal discharge Leukorrhea, not specified as infective STD exposure Anxiety, generalized (CMS/HCC) documented in this encounter [facility] History general Narrative - Reported Note Date & Type Note Facility History general Narrative - Reported Type Medical History asthma Hospitalization History child x 2 [facility] Other Instructions Attachments Note Date & Type Note Facility Instructions The following attachments cannot be sent through Care Everywhere.Depression (Syriac)documented in this encounter [facility] Summary Purpose Family History No Family History Records FoundNo Family History Records FoundNo Family History Records FoundNo Family History Records FoundNo Family History Records Found Advance Directives No Advanced Directives Records FoundNo Advanced Directives Records FoundNo Advanced Directives Records FoundNo Advanced Directives Records FoundNo Advanced Directives Records Found Additional Source Comments INFORMATION SOURCE (unrecogn ized section and content) DATE CREATED AUTHOR 08/29/2021 [facility] DATE CREATED AUTHOR AUTHOR'S ORGANIZ ATION [facility] DATE CREATED AUTHOR AUTHOR'S ORGANIZ ATION 05/14/2023 [facility] DATE CREATED AUTHOR AUTHOR'S ORGANIZ ATION 05/22/2023 [facility] DATE CREATED AUTHOR AUTHOR'S ORGANIZ ATION 05/28/2023 [facility] Reason for Visit (unrecogniz ed section and content) Reason Comments Well Women Visit Routine Visit Reason Comments New Patient Care Teams (unrecognized sec tion and content) 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 [facility] [employer] [facility]. provides no warranty or guarantee of the accuracy or completeness of information in this document.
[2023-06-19 01:06] LABS: AFP Value 102.6 ng/mL (.); Gest. Age on Collection Date 21.9 weeks (.); Gestat. Age Based On Ultrasound (.); Insulin Dep Diabetes No (.); Maternal Age At EDD 26.4 yr (.); OSBR Risk 1 IN 2809 (.); Results Report (.)
== END 2023-06-17 12:47 | disposition home or self-care (01) ==
LOC: US 12:47
PROVIDERS: Visit Provider Obstetrics & Gynecology
DX: Z34.92 Encounter for supervision of normal pregnancy, unspecified, second trimester (principal); Z36.89 Encounter for other specified antenatal screening; Z3A.22 22 weeks gestation of pregnancy
CPT/HCPCS: 36415; 76805; 76817; 82105

== ENCOUNTER 2023-07-06 13:27 | Outpatient (OUT) | payer OTHER, SELFPAY ==
--- OUTSIDE RECORDS SUMMARY | 2023-07-06 13:45 | XMS_ITS | CCD ---
Author Organization [facility] Care Team Providers Care Mechanical Manager Name Role Phone Bobby Knox Unavailable DR DIANDRA ROY Attending Unavailable JAN, DR JIM Consulting Unavailable DR DIANDRA ROY Admitting Unavailable DR XIN NAGY Primary Care Unavailable Oralia Calvert Primary Care Unavailab Ayush Cadena Attending Unavailable Geovany Moran Admitting Unavailab Geovany Riley Admitting Unavailab Geovany Riley Attending Unavailab Oralia Ruggiero Primary Care Unavailab Hilary Celestin Primary Care Provide r HILARY LOMBARDI Attending Unavailable ORALIA CALVERT Referring Unavailable HILARY LOMBARDI Primary Care Unavailable Unavailable Primary Care Provider UnavailANNEMARIE Clifton Attending Unavailable DIANDRA ROY Attending Unavailable ANNEMARIE PETER Attending Unavailable DIANDRA ROY Attending Unavailable Octavio HARO Attending Unavailable Allergies Allergy Classification Reported Allergen(s) Allergy Type Date of Onset Reaction(s) Facility (6 sources) 1-octacosanol; Translations: [OCTACOSANOL] Drug Allergy 04-14-2023 [email or web address] Medications Current Medications Medication Drug Class(es) Dates Sig (Normalized) Sig (Original) [id number] 200 actuat albuterol 0.09 mg/actuat metered dose [...] MORNING 30 tablet 0 05/16/2023 Active vit no.366-[id number] ( PLUS VITAMIN-MINERAL) 27 mg iron- 1 mg tablet (1 source) Start: 05-16-2023 vit no.614-[id number]-[id number] ( PLUS VITAMIN-MINERAL) 27 mg iron- 1 [...] Test Name Value Interpretation Reference Range Facility [facility] 07-01-2023 Consent [id number]# 1.00TIFF [facility] Registrationon 07-01-2023 Registration [id number]# 1.00TIFF [facility] IGP,APTIMA HPV,AGE GDLNon AGE GDLN ACOG TESTING Note . [facility] Comment on above: TESTS RESULT FLAG UN ITS REF RANGE LAB Clinician Provided Cytology Information Source.............Endocervix No. of containers..01 ThinPrep Vial Age Saji BUTT Alyssa... FLAG LEGEND: L-Low Normal,H-High Normal,LL-Alert Low,HH-Alert High <-Panic Low,>-Panic High,A-Abnormal,AA-Critical Abnormal Performed at: 01 =[address] [address] Karrie Jimenez MD, IGP, RFX APTIMA HPV ASCU Note . [facility] Comment on above: TESTS RESULT FLAG UN ITS REF RANGE LAB DIAGNOSIS: 02 NEGATIVE FOR INTRAEPITHELIAL LESION OR MALIGNANCY. Specimen adequacy: 02 Satisfactory for evaluation. No endocervical component is identified. Performed by: 02 Bk Hays, Soda Tester ([facility]) . 02 Note: Note 02 The Pap [...] Low,>-Panic High,A-Abnormal,AA-Critical Abnormal Performed at: [address] [address] Karrie Jimenez MD, Performed at: =[facility] [id number] [employer] Operator: Karrie Jimenez MD, Phone: [phone] Performed at: [address] [id number] [employer] Operator: Karrie Jimenez MD, Phone: [phone] SP[facility] URETHRITIS/DISCHARGE PLUS VA GINITIS (HTRX)on 05-27-2023 ATOPOBIUM VAGINAE 16.087 Abnormal [facility] ATOPOBIUM VAGINAE Detected Abnormal [facility] BVAB 2,3 (BACTERIAL VAGINOSIS ASSOCIATED BACTERIA 2, 3); MOBILUNCUS SPP 20.57 Abnormal [facility] BVAB 2,3 (BACTERIAL VAGINOSIS ASSOCIATED BACTERIA 2, 3); MOBILUNCUS SPP Detected Abnormal [facility] LYN ALBICANS, PARAPSILOSIS, TROPICALIS 0 [facility] LYN ALBICANS, PARAPSILOSIS, TROPICALIS Not detected [facility] LYN GLABRATA 0 [facility] LYN GLABRATA Not detected [facility] LYN KRUSEI 0 [facility] LYN KRUSEI Not detected [facility] CHLAMYDIA TRACHOMATIS 0 [facility] Healthcare CHLAMYDIA TRACHOMATIS Not detected [facility] DFR (A1, A5), SUL (1,2) 0 PPM [facility] Healthcare DFR (A1, A5), SUL (1,2) Not detected [facility] ERMB, C; MEFA 24.689 Abnormal PPM [facility] Health care ERMB, C; MEFA Detected Abnormal [facility] care GARDNERELLA VAGINALIS 18.724 Abnormal [facility] GARDNERELLA VAGINALIS Detected Abnormal [facility] Interpretation and review of laboratory results Abnormal [facility] MEGASPHAERA (TYPES 1, 2) 0 [facility] MEGASPHAERA (TYPES 1, 2) Not detected [facility] MYCOPLASMA GENITALIUM 0 [facility] MYCOPLASMA GENITALIUM Not detected [facility] NEISSERIA GONORRHOEAE 0 [facility] NEISSERIA GONORRHOEAE Not detected [facility] Healthcare TET B, TET M 23.465 Abnormal PPM [facility] Healthc are TET B, TET M Detected Abnormal [facility] TRICHOMONAS VAGINALIS 0 [facility] TRICHOMONAS VAGINALIS Not detected [facility] Urinalysis macro (dipstick) panel (U)on 05-26-2023 Bilirubin, UA Negative Negative - 4(70) +++ mg/dL [facility] Blood, UA Negative Negative - 50 Xander/mcL [facility] Clarity, UA Clear [facility] re Color, UA Yellow [facility] Glucose, UA Negative Negative - 1999(110) ++++ mg/dL [facility] Interpretation and review of laboratory results Abnormal [facility] Ketones, UA Negative Negative - 160(16) ++++ mg/dL [facility] Leukocytes, UA Negative Negative - 500+++ Vince/mcL [facility] Nitrite, UA Negative Negative - Positive [facility] pH, UA 5.5 5 - 9 [facility] Protein, UA Positive Negative - 1999(20) ++++ mg/dL [facility] Spec Grav, UA 1.020 1 - 1.03 [facility] Urobilinogen, UA 1.0 0.2 - 12 mg/dL [facility] Lip[facility]on 11-05-2022 Cholesterol [Mass/Vol] 152 mg/dL Normal 140-200 [facility] Comment on above: Result Comment: Chol less than 200 mg/dl low risk Chol 201-239 mg/dl borderline risk Chol 240 mg/dl and greater high risk Performed By: #### L IPID, TSH3 wRFLX, [id number] #### [facility] [address] Cholesterol in HDL [Mass/Vol] 46 mg/dL Normal 23-92 [facility] Comment on above: Result Comment: HDL CHOL ATP-III CLASSIFICATION Cardiovascular Risk HDL > or equal to 60 mg/dL LOW HDL < 40 mg/dL HIGH Performed By: #### L IPID, TSH3 wRFLX, [id number] #### [facility] [address] Cholesterol.total/Ch olesterol in HDL [Mass ratio] 3.3 {ratio} Normal <5.0 [facility] Comment on above: Performed By: #### L IPID, TSH3 wRFLX, [id number] #### [facility] [address] LDL Cholesterol,Calculat ed 85 mg/dL Normal 0-100 [facility] Comment on above: Result Comment: LDL ATP III CLASSIFICATION LDL less than 100 mg/dL Optimal LDL 100-129 mg/dL Near or above optimal LDL 130-159 mg/dL Borderline high LDL 160-189 mg/dL High LDL greater than 189 mg/dL Very high Performed By: #### L IPID, TSH3 wRFLX, [id number] #### [facility] [address] Triglyceride w/Reflex 106 mg/dL Normal 0-149 [facility] Comment on above: Result Comment: TRIG ATP III CLASSIFICATION TRIG less than 150 mg/dL Normal TRIG 150-199 mg/dL Borderline high TRIG 200-500 mg/dL High TRIG greater than 500 mg/dL Very high Standard traceable to the Center for Disease Conrtrol and Prevention (CDC) test method. Performed By: #### L IPID, TSH3 wRFLX, [id number] #### [facility] [address] VLDL CHOLESTEROL 21 mg/dL Normal [facility] Comment on above: Performed By: #### L IPID, TSH3 wRFLX, [id number] #### [facility] [address] [place] [address] Thyroid Stim Hormone w/Rflxo n 11-05-2022 Thyroid Stim Hormone w/Rflx 1.37 u[iU]/mL Normal 0.45-5.33 [facility] Comment on above: Performed By: #### L IPID, TSH3 wRFLX, [id number] #### [address] Vitamin D 25 Hydroxy Totalon 11-05-2022 Vitamin D 25 Hydroxy Total 31.4 ng/mL Normal 30-100 [facility] Comment on above: Result Comment: ALEXANDRA MIN D STATUS 25(OH)VITAMIN D RANGE (ng/mL) Deficient <20 Insufficient 20 to <30 Sufficient 30 to 100 Reference: Gerry MF,Leyv NC, Gonzalo DINH, et al. Evaluation,treatment, and prevention of vitamin D deficiency; an Endocrine Society clinical practice guideline. JCEM. 2010; 96(7):1911-30. PERFORMED BY: [place] [address] PATHOLOGIST WEEKEND ANCHOR MERISSA CONTI M.D. Performed By: #### L IPID, TSH3 wRFLX, [id number] #### [facility] [address] [place] [address] PAP ACOG PANEL 2: 21 to 29on 11-05-2021 . . Normal [facility] Comment on above: Performed By: #### [id number] #### [facility] [address] [address] [address] Jeremiah Rboerts Age Gdln ACOG Testing - Normal [facility] Comment on above: Performed By: #### [id number] #### [facility] [address] [address] [address] Jeremiah Roberts DIAGNOSIS: Comment Normal [facility] Comment on above: Result Comment: NEGA TIVE FOR INTRAEPITHELIAL LESION OR MALIGNANCY. Performed By: #### [id number] #### [facility] [address] [place] [address] Dr. Jeremiah Roberts Methodology: Comment Normal [facility] Comment on above: Result Comment: This liquid based ThinPrep(R) pap test was screened with the use of an image guided system. Performed By: #### [id number] #### [facility] [address] [place] [address] Dr. Jeremiah Roberts Note: Comment Normal [facility] Comment on above: Result Comment: The Pap smear is a screening test designed to aid in the detection of premalignant and malignant conditions of the uterine cervix. It is not a diagnostic procedure and should not be used as the sole means of detecting cervical cancer. Both false-positive and false-negative reports do occur. . Performed By: #### 4 [id number] #### [facility] [address] [place] [address] Dr. Jeremiah Roberts Performed by: Comment Normal [facility] Comment on above: Result Comment: Pancho Billy, Soda Tester (ASCP) Performed By: #### [id number] #### [facility] [address] [place] [address] Dr. Jeremiah Roberts Reflex Criteria: Comment Normal [facility] Comment on above: Result Comment: The HPV DNA reflex criteria were not met with this specimen result therefore, no HPV testing was performed. . Performed By: #### 4 [id number] #### [facility] [address] [place] [address] Dr. Jeremiah Roberts Specimen adequacy: Comment Normal [facility] Comment on above: Result Comment: Sati sfactory for evaluation. Endocervical and/or squamous metaplastic cells (endocervical component) are present. Performed By: #### 4 [id number] #### [facility] [address] [place] [address] Dr. Jeremiah Roberts Vital Signs Date Time Vital Sign Value Performing Clinician Facility 05-26-2023 15:46-0500 Body mass index (BMI) [Ratio] 30.54 kg/m2 Annemarie NOGUERA Work Phone: [facility] 05-26-2023 15:46-0500 Body weight 75.75 kg Annemarie NOGUERA Work Phone: [facility] 05-26-2023 15:46-0500 Diastolic blood pressure 64 mm[Hg] Annemarie NOGUERA Work Phone: [facility] 05-26-2023 15:46-0500 Systolic blood pressure 106 mm[Hg] Annemarie NOGUERA Work Phone: [facility] 05-19-2023 13:00-0500 Body mass index (BMI) [Ratio] 31.55 kg/m2 Hilary Lombardi PHLEBOTOMY TECH-CELL TOWER CLIMBER Work Phone: [facility] 05-19-2023 13:00-0500 Body weight 75.75 kg Hilary Lombardi PHLEBOTOMY TECH-CELL TOWER CLIMBER Work Phone: [facility] 05-19-2023 13:00-0500 Diastolic blood pressure 60 mm[Hg] Hilary Lombardi PHLEBOTOMY TECH-CELL TOWER CLIMBER Work Phone: [facility] 05-19-2023 13:00-0500 Heart rate 96 /min Hilary Lombardi PHLEBOTOMY TECH-CELL TOWER CLIMBER Work Phone: [facility] 05-19-2023 13:00-0500 Respiratory rate 16 /min Hilary Dyechter PHLEBOTOMY TECH-CELL TOWER CLIMBER Work Phone: [facility] 05-19-2023 13:00-0500 SaO2% (BldA) [Mass fraction] 98 % Hilary Dyechter PHLEBOTOMY TECH-CELL TOWER CLIMBER Work Phone: [facility] 05-19-2023 13:00-0500 Systolic blood pressure 110 mm[Hg] Hilary DyeLoyalzooalen PHLEBOTOMY TECH-CELL TOWER CLIMBER Work Phone: [facility] Encounters Encounter Date Encounter Type Care Provider Facility Start: 07-01-2023 End: 07-02-2023 ambulatory Octavio [place] Facility:[facility] Start: 06-27-2023 End: 06-27-2023 ambulatory DIANDRA ROY Not Available Start: 05-26-2023 End: 05-26-2023 ambulatory ANNEMARIE PETER Not Available Start: 05-26-2023 End: 05-26-2023 Patient encounter procedure Annemarie Conwayronald NOGUERA Work Phone: [facility] Work Phone: Start: 05-26-2023 End: 05-26-2023 Periodic preventive med est patient 18-39 yrs Annemarie Conwayronald NOGUERA Work Phone: [facility] Comment on above: Well woman exam with routine gynecological exam; Second trimester ; Screening, , for anatomic survey; Vaginal discharge; STD exposure; Anxiety, generalized ([facility]) Start: 05-26-2023 [facility] Result Encounter Annemarie NOGUERA Work Phone: [facility] Unsolicited Start: 05-26-2023 External Result Encounter Annemarie [place] Work Phone: [facility] Unsolicited Start: 05-26-2023 External Result Encounter Annemarie Conwayronald NOGUERA Work Phone: [facility] Unsolicited Start: 05-19-2023 End: 05-19-2023 ambulatory [facility] Start: 05-19-2023 End: 05-19-2023 Office outpatient new 20 minutes [facility] PHLEBOTOMY TECH-CELL TOWER CLIMBER Work Phone: [facility] Comment on above: Other depression (Pr imary Dx) Start: 04-28-2023 End: 04-28-2023 ambulatory DIANDRA ROY Not Available Start: 04-14-2023 End: 04-14-2023 ambulatory ANNEMARIE PETER Not Available Start: 03-31-2023 End: 03-31-2023 ambulatory ANNEMARIE PETER Not Available Start: 02-19-2023 ambulatory Geovany Antoine acility:[facility] Start: 11-05-2022 End: 11-08-2022 Evaluation and management of inpatient Oralia Calvert Facility:[facility] Start: 11-02-2021 End: 11-02-[address] DIANDRA ROY Facility: Start: 04-22-2021 End: 04-22-2021 ambulatory Bobby Knox Other [facility] [employer] Other Start: 04-22-2021 Telephone encounter Bobby Knox [facility] [place] Procedures Date Procedure Procedure Detail Performing Clinician [...] Td Vaccines (8 - Td or Tdap) [facility] Start: 05-19-2024 Adult BMI Follow Up Plan Adult BMI Follow Up Plan [facility] Start: 05-19-2024 Adult BMI Screening Adult BMI Screen ing [facility] Start: 05-19-2024 Tobacco Screening Tobacco Screening [facility] Start: 10-26-2023 End: 10-26-2023 Patient encounter procedure 10/26/2023 1:30 PM EDT [facility] [address] [place] [id number] Hilary Lombardi, DEONARYAN [address] [place] [address] [facility] Start: 06-27-2023 End: 06-27-2023 Patient encounter procedure 06/27/2023 2:10 PM EDT Routine [facility] [address] [place] [id number] Diandra Roy, [address] [place], [place] [id number] [facility] Start: 06-07-2023 End: 06-07-2023 Professional / ancillary services management 06/07/2023 1:00 PM EST Ancillary Procedure [facility] [address] [place] [address] [facility] Start: 05-26-2023 End: 08-24-2023 Alpha fetoprotein, maternal Alpha fetoprotein, maternal Lab Routine Second trimester Expected: 05/26/2023 (Approximate), Expires: 08/24/2023 [facility] Comment on above: Expected: 05/26/2023 (Approximate), Expires: 08/24/2023 Start: 05-26-2023 End: 05-26-2024 US for US OB ANATOMY SINGLE W US OB CERVICAL LENGTH Imaging Routine Screening, , for anatomic survey Expected: 05/26/2023 (Approximate), Expires: 05/26/2024 [facility] Comment on above: Expected: 05/26/2023 (Approximate), Expires: 05/26/2024 Start: 12-17-2022 COVID-19 Vaccine ( season) COVID-19 Vaccine ( season) [facility] Start: 12-17-2022 Influenza vaccination [facility] Start: 2018 Screening for malign ant neoplasm of cervix Pap Smear [facility] Start: 2009 [facility]IA TRACHOMATI S (GENITO/STI) CHLAMYDIA TRACHOMATIS (GENITO/STI) Lab Routine STD exposure Ordered: 05/26/2023 [facility] Comment on above: Ordered: 05/26/2023 Cytology Cervical or vaginal smear or scraping study Pap Smear Pathology and Cytology Routine Well woman exam with routine gynecological exam Ordered: 05/26/2023 [facility] Work Phone: Comment on above: Ordered: 05/26/2023 Neisseria gonorrhoea e DNA [Presence] in Unspecified specimen by UNA with probe detection Neisseria gonorrhea DNA probe, direct Lab Routine STD exposure Ordered: 05/26/2023 [facility] Comment on above: Ordered: 05/26/2023 SURESWAB(R) ADVANCED VAGINITIS PLUS, TMA SURESWAB(R) ADVANCED VAGINITIS PLUS, TMA Pathology and Cytology Routine Vaginal discharge Ordered: 05/26/2023 [facility] Comment on above: Ordered: 05/26/2023 Immunizations Immunization Date Immunization Notes Care Provider Abelardo landaverde 02-09-2022 influenza virus vaccine, unspecified formulation Hilary Dyeamita PHLEBOTOMY TECH-CELL TOWER CLIMBER Work Phone: [employer] 03-05-2021 COVID-19 Vaccine Moderna - Documentation Purposes Only Bobby Knox Other [employer] Other 04-22-2020 influenza, seasonal, injectable, preservative free Bobby Knox Other [employer] Other 04-22-2020 tetanus toxoid, reduced diphtheria toxoid, and acellular pertussis vaccine, adsorbed Bobby Knox Other [employer] Other Payers Date Payer Category Payer Self-pay 2022 Medicaid [id number] 2022 Unknown [id number] 2021 Unknown BCBS BCBS [id number] 2021-Present [phone] [address] [place] [address] [id number] 1997 Unknown [id number] [id number] 1997 Unknown [id number] [id number] 1997 Unknown [id number] [id number] 1997 Unknown [id number] [id number] 1997 Unknown [id number] [id number] 1997 Unknown [id number] [id number] 1997 Unknown [id number] [id number] 1959 Unknown [id number] 2.1 [id number] 1959 Unknown [id number] Unknown [id number] [id number] Unknown [id number] [id number] Social History Date Type Detail Facility Start: 11-05-2022 End: 05-19-2023 Sex Assigned At [facility] Start: 10-28-2016 End: 11-05-2022 Tobacco smoking status NHIS Never smoked tobacco [facility] Start: 05-19-2023 Alcohol intake Lifetime non-d danielle (finding) [facility] Start: 11-05-2022 End: 05-19-2023 History of Social function [facility] Childcare Unknown [facility] Start: 1997 Sex Assigned At Not on file P [facility] Start: 11-05-2022 Tobacco use and exposure Smokeless tobacco non-user [facility] Start: 05-26-2023 Alcohol intake Ex-drinker (finding) [facility] Start: 11-05-2022 Alcohol Comment Occasional alcohol u se [facility] Start: 01-29-2023 [facility] of Present illness Narrative 05-26-2023 POORNIMA Hughes - 05/26/2023 3:30 PM EST Note Date & Type Note Facility 05-26-2023 History of Presen t illness Narrative Reason for Appointment: Patient ID: Luli Jose is a 28 y.o. female who presents [...] nursing note reviewed. Exam conducted with a glue mounter operator present. Vitals: Estimated body mass index is 30.54 kg/m as calculated from the following: Height as of 21: 5' 2 . Weight as of this [...] obtained without difficulty and patient was given msAFP order to have obtained. Follow Up: Patient is to return to our office in 4 weeks for routine OB appointment Documented by Margarita Lion LPN on behalf of: POORNIMA Hughes documented in this encounter [facility] History of Present illness Narrative 05-19-2023 Hilary Lombardi APRN-CELL TOWER CLIMBER - 05/19/2023 1:00 PM EST Note Date & Type Note Facility 05-19-2023 History of Presen t illness Narrative Images from the original note were not included. [address] [facility] [id number] SUBJECTIVE: Patient ID: Luli Jose is a 28 y.o. female. Patient presents [...] following intervention(s) were applied: encouragement to exercise. HilaryCOURTNEY Grace 05/19/23 1322 documented in this encounter [facility] Evaluation note 04-22-2021 Note Date & Type Note Facility 04-22-2021 Evaluation note Encounter Date Diagnosis Assessment Notes Apr, Acute vaginitis (ICD-10 - N76.0) [employer] Other Evaluation note Note Date & Type Note Facility Evaluation note Diagnosis Other depression- Primary documented in this encounter [facility] Evaluation note Note Date & Type [...] History asthma Hospitalization History child x 2 [employer] Other Instructions Attachments Note Date & Type Note Facility Instructions The following attachments cannot be sent through Care Everywhere.Depression (Slovenian)documented in this encounter [facility] Summary Purpose Family History No Family History Records FoundNo Family History Records FoundNo Family History Records FoundNo Family History Records FoundNo Family History Records Found Advance Directives No Advanced Directives Records FoundNo Advanced Directives Records FoundNo Advanced Directives Records FoundNo Advanced Directives Records FoundNo Advanced Directives Records Found Additional Source Comments INFORMATION SOURCE (unrecogn ized section and content) DATE CREATED AUTHOR 03/20/2022 [facility] DATE CREATED AUTHOR AUTHOR'S ORGANIZ ATION 05/14/2023 [facility] DATE CREATED AUTHOR AUTHOR'S ORGANIZ ATION 05/22/2023 [facility] DATE CREATED AUTHOR AUTHOR'S ORGANIZ ATION 06/28/2023 [facility] EPIC DATE CREATED AUTHOR AUTHOR'S ORGANIZ ATION 07/02/2023 [facility] Reason for Visit (unrecogniz ed section and content) Reason Comments Well Women Visit Routine Visit Reason Comments New Patient Care Teams (unrecognized sec tion and content) Mechanical Manager Relationship Specialty Start Date End Date Hilary Lombardi APRN-ARYAN [address] [place] [address] PCP - General Family Medicine 05/19/23 FOR [...] BE BASED ON THE PRIMARY CLINICAL RECORDS. [employer] provides no warranty or guarantee of the accuracy or completeness of information in this document.
[2023-07-06 16:20] LABS: Basophils Absolute Auto 0.1 10^3/uL (0.0-0.1); Basophils Percent Auto 0.6 % (0.2-2.0); Eosinophils Absolute Auto 0.5 10^3/uL (0.0-0.7); Eosinophils Percent Auto 4.9 % (0.9-7.0); Hematocrit 37.2 % (36.0-48.0); Hemoglobin 12.1 g/dL (12.0-16.0); Immature Granulocytes Abs Auto 0.11 10^3/uL (0.00-0.03); Lymphocytes Absolute Auto 1.8 10^3/uL (1.2-3.8); Lymphocytes Percent Auto 16.9 % (20.5-60.0); Mean Corpuscular HGB Conc 32.5 g/dL (29.9-35.2); Mean Corpuscular Hemoglobin 31.5 pg (26.7-34.0); Mean Corpuscular Volume 96.9 fL (81.0-99.0); Mean Platelet Volume 12.6 fL (9.5-13.5); Monocytes Absolute Auto 0.7 10^3/uL (0.3-0.8); Monocytes Percent Auto 6.5 % (1.7-12.0); Neutrophils Absolute Auto 7.5 10^3/uL (1.4-6.5); Neutrophils Percent Auto 70.1 % (43.0-75.0); Platelet Count 224 10^3/uL (150-450); Red Blood Count 3.84 10^6/uL (4.20-5.40); Red Cell Distribution Width 12.7 % (11.0-15.0); White Blood Count 10.7 10^3/uL (4.0-11.0)
[2023-07-06 16:35] LABS: Glucose 1 Hour 105 mg/dL (<130)
== END 2023-07-06 13:28 | disposition home or self-care (01) ==
LOC: LAB 13:27
PROVIDERS: Visit Provider Obstetrics & Gynecology
DX: Z13.1 Encounter for screening for diabetes mellitus (principal)
CPT/HCPCS: 36415; 82950; 85025

== ENCOUNTER 2023-08-30 08:05 | Outpatient (OUT) | payer OTHER, SELFPAY ==
--- NOTE | 2023-08-30 | US_ITS ---
[address] [address] Patient Name: LULI JOSE MRN: [id number] date: 1995 Sex: F Assigned Patient Location: [facility] Current Patient Location: [facility] Accession/Order Number: [id number] Exam Date: 08/30/2023 08:08 Report Date: 08/30/2023 09:32 At the request of: DIANDRA MONTOYA Procedure: US OB growth EXAMINATION: US OB growth HISTORY: SIZE INCONSISTENT WITH DATES COMPARISON: Ultrasound OB anatomy FINDINGS: Heart Rate: 137.0 bpm Number: 1.0 Position: CEPHALIC Amniotic Fluid Volume: 11.1 cm Maximum Vertical Pocket: 3.7 cm BIOMETRY: BPD: 8.3 cm cm; 33 weeks 4 days; 74% HC: 30.7 cmcm; 34 weeks 1 days ; 59% AC: 28.8 cm cm; 32 weeks 5 days; 60% FL: 6.2 cm cm; 32 weeks 1 days; 30% EFW: 2049.3 grams; 51% FL/AC: 21.6 FL/BPD: 74.4 HC/AC: 1.1 GESTATIONAL AGE: Age by EDC: 32 weeks 3 days JARROD by EDC: 10/22/2023 Age by US: 33 weeks 1 day JARROD by US: 10/17/2023 US/US OB growth IMPRESSION: 1. Single live intrauterine with growth detailed above. Electronically authenticated by: JUDITH BUTLER Date: 08/30/2023 09:32
--- OUTSIDE RECORDS SUMMARY | 2023-08-30 08:17 | XMS_ITS | CCD ---
Author Organization [facility] Care Team Providers Care Ground Instructor Advanced Name Role Phone Bobby Knox Unavailable DR [...] ORALIA CALVERT Referring Unavailable HILARY LOMBARDI Primary Cristine Unavailable Unavailable Primary Care Provider UnavailOctavio Rene Attending Unavailable ANNEMARIE PETER Attending Unavailable DIANDRA ROY Attending Unavailable ANNEMARIE PETER Attending Unavailable DIANDRA ROY Attending Unavailable ANNEMARIE PETER Attending Unavailable DIANDRA ROY Attending Unavailable DIANDRA ROY Attending Unavailable Allergies Allergy Classification Reported Allergen(s) Allergy Type Date of Onset Reaction(s) Facility (6 sources) 1-octacosanol; Translations: [OCTACOSANOL] Drug Allergy 04-14-2023 [facility] Medications Current Medications Medication Drug Class(es) Dates Sig (Normalized) Sig (Original) [id number] 200 actuat albuterol 0.09 mg/actuat metered dose [...] MORNING 30 tablet 0 05/16/2023 Active vit no.195-[id number] ( PLUS VITAMIN-MINERAL) 27 mg iron- 1 mg tablet (1 source) Start: 05-16-2023 vit no.279-[id number]-[id number] ( PLUS VITAMIN-MINERAL) 27 mg iron- 1 [...] Interpretation Reference Range Facility [facility] 07-01-2023 Consent [id number]# 1.00TIFF [facility] Registrationon 07-01-2023 Registration [id number]# 1.00TIFF [facility] IGP,APTIMA HPV,AGE GDLNon AGE GDLN ACOG TESTING Note . [facility] Comment on above: TESTS RESULT FLAG UN ITS REF RANGE LAB Clinician Provided Cytology Information Source.............Endocervix No. of containers..01 ThinPrep Vial Age Algo ACOG Alyssa... FLAG LEGEND: L-Low Normal,H-High Normal,LL-Alert Low,HH-Alert High <-Panic Low,>-Panic High,A-Abnormal,AA-Critical Abnormal Performed at: 01 =G [address] [address] Karrie Jimenez MD, IGP, RFX APTIMA HPV ASCU Note . [facility] Comment on above: TESTS RESULT FLAG UN ITS REF RANGE LAB DIAGNOSIS: 02 NEGATIVE FOR INTRAEPITHELIAL LESION OR MALIGNANCY. Specimen adequacy: 02 Satisfactory for evaluation. No endocervical component is identified. Performed by: 02 Bk Hays, Active Directory Specialist ([facility]) . 02 Note: Note 02 The [...] <-Panic Low,>-Panic High,A-Abnormal,AA-Critical Abnormal Performed at: [address] [address] Karrie Jimenez MD, Performed at: = - [address] [id number] Production Operations Manager: Karrie Jimenez MD, Phone: [phone] Performed at: [address] [id number] Production Operations Manager: Karrie Jimenez MD, Phone: [phone] [facility] URETHRITIS/DISCHARGE [...] [facility] LYN GLABRATA Not detected [facility] H ealthcare LYN KRUSEI 0 [facility] Healt hcare LYN KRUSEI Not detected [facility] Hea lthcare CHLAMYDIA TRACHOMATIS 0 [facility] CHLAMYDIA TRACHOMATIS Not detected [facility] Healthcare DFR (A1, A5), SUL (1,2) 0 PPM [facility] Healthcare DFR (A1, A5), SUL (1,2) Not detected [facility] ERMB, C; MEFA 24.689 Abnormal PPM [facility] care ERMB, C; MEFA Detected Abnormal [facility] care GARDNERELLA VAGINALIS 18.724 Abnormal [facility] GARDNERELLA VAGINALIS Detected Abnormal [facility] Interpretation and review of laboratory results Abnormal [facility] MEGASPHAERA (TYPES 1, 2) 0 [facility] MEGASPHAERA (TYPES 1, 2) Not detected [facility] MYCOPLASMA GENITALIUM 0 [facility] MYCOPLASMA GENITALIUM Not detected [facility] NEISSERIA GONORRHOEAE 0 [facility] NEISSERIA GONORRHOEAE Not detected [facility] TET B, TET M 23.465 Abnormal [facility] are TET B, TET M Detected [facility] are TRICHOMONAS VAGINALIS 0 [facility] TRICHOMONAS VAGINALIS Not detected [facility] Urinalysis macro (dipstick) panel (U)on 05-26-2023 Bilirubin, UA Negative Negative - 4(70) +++ mg/dL [facility] Blood, UA Negative Negative - 50 Xander/mcL [facility] Clarity, UA Clear [facility] re Color, UA Yellow [facility] Health[facility] e Glucose, UA Negative Negative - 1999(110) ++++ mg/dL [facility] Interpretation and review of laboratory results Abnormal [facility] Ketones, UA Negative Negative - 160(16) ++++ mg/dL [facility] Leukocytes, UA Negative Negative - 500+++ Vince/mcL [facility] Nitrite, UA Negative Negative - Positive [facility] pH, UA 5.5 5 - 9 [facility] Healthcar e Protein, UA Positive Negative - 1999(20) ++++ mg/dL [facility] Spec Grav, UA 1.020 1 - 1.03 [facility] Urobilinogen, UA 1.0 0.2 - 12 mg/dL [facility] Lipid Panelon 11-05-2022 Cholesterol [Mass/Vol] 152 mg/dL Normal 140-[address] [facility] Comment on above: Result Comment: Chol less than 200 mg/dl low risk Chol 201-239 mg/dl borderline risk Chol 240 mg/dl and greater high risk Performed By: #### L IPID, TSH3 wRFLX, [id number] #### [facility] [address] [id number] [place] Cholesterol in HDL [Mass/Vol] 46 mg/dL Normal 23-[address] [facility] Comment on above: Result Comment: HDL CHOL ATP-III CLASSIFICATION Cardiovascular Risk HDL > or equal to 60 mg/dL LOW HDL < 40 mg/dL HIGH Performed By: #### L IPID, TSH3 wRFLX, [id number] #### [facility] [address] [place] [address] [place] Cholesterol.total/Ch olesterol in HDL [Mass ratio] 3.3 {ratio} Normal <5.[address] [facility] Comment on above: Performed By: #### L IPID, TSH3 wRFLX, [id number] #### [facility] [address] [place] [address] [place] LDL Cholesterol,Calculat ed 85 mg/dL Normal 0-[address] [facility] Comment on above: Result Comment: LDL ATP III CLASSIFICATION LDL less than 100 mg/dL Optimal LDL 100-129 mg/dL Near or above optimal LDL 130-159 mg/dL Borderline high LDL 160-189 mg/dL High LDL greater than 189 mg/dL Very high Performed By: #### L IPID, TSH3 wRFLX, [id number] #### [facility] [address] [id number] [place] Triglyceride w/Reflex 106 mg/dL Normal 0-[address] [facility] Comment on above: Result Comment: TRIG ATP III CLASSIFICATION TRIG less than 150 mg/dL Normal TRIG 150-199 mg/dL Borderline high TRIG 200-500 mg/dL High TRIG greater than 500 mg/dL Very high Standard traceable to the Center for Disease Conrtrol and Prevention (CDC) test method. Performed By: #### L IPID, TSH3 wRFLX, [id number] #### [address] VLDL CHOLESTEROL 21 mg/dL Normal [facility] Comment on above: Performed By: #### L IPID, TSH3 wRFLX, [id number] #### [address] Thyroid Stim Hormone w/Rflxo n 11-05-2022 Thyroid Stim Hormone w/Rflx 1.37 u[iU]/mL Normal 0.45-5.[address] [facility] Comment on above: Performed By: #### L IPID, TSH3 wRFLX, [id number] #### [address] Vitamin D 25 Hydroxy Totalon 11-05-2022 Vitamin D 25 Hydroxy Total 31.4 ng/mL Normal 30-[address] [facility] Comment on above: Result Comment: ALEXANDRA MIN D STATUS 25(OH)VITAMIN D RANGE (ng/mL) Deficient <20 Insufficient 20 to <30 Sufficient 30 to 100 Reference: Gerry MF,Levy NC, Gonzalo DINH, et al. Evaluation,treatment, and prevention of vitamin D deficiency; an Endocrine Society clinical practice guideline. JCEM. 2010; 96(7):1911-30. PERFORMED BY: [place] [address] PATHOLOGIST PAPER PATTERN FOLDER MERISSA CONTI M.D. Performed By: #### L IPID, TSH3 wRFLX, [id number] #### [address] PAP ACOG PANEL 2: 21 to 29on 11-05-2021 . . [facility] Comment on above: Performed By: #### [id number] #### [facility] [address] [address] [address] Jeremiah Roberts Age Gdln ACOG Testing - [facility] Comment on above: Performed By: #### 4 [id number] #### [facility] [address] [address] [address] Jeremiah Roberts DIAGNOSIS: Comment [facility] Comment on above: Result Comment: NEGA TIVE FOR INTRAEPITHELIAL LESION OR MALIGNANCY. Performed By: #### 4 [id number] #### [facility] [address] [place] [address] Dr. Jeremiah Roberts Methodology: Comment [facility] Comment on above: Result Comment: This liquid based ThinPrep(R) pap test was screened with the use of an image guided system. Performed By: #### 4 [id number] #### [facility] [address] [place] [address] Dr. Jeremiah Roberts Note: Comment Normal [facility] Comment on above: Result Comment: The Pap smear is a screening test designed to aid in the detection of premalignant and malignant conditions of the uterine cervix. It is not a diagnostic procedure and should not be used as the sole means of detecting cervical cancer. Both false-positive and false-negative reports do occur. . Performed By: #### 4 [id number] #### [facility] [address] [place] [address] Dr. Jeremiah Roberts Performed by: Comment Normal [facility] Comment on above: Result Comment: Pancho Billy, Active Directory Specialist (ASCP) Performed By: #### 4 [id number] #### [facility] [address] [place] [address] Dr. Jeremiah Roberts Reflex Criteria: Comment [facility] Comment on above: Result Comment: The HPV DNA reflex criteria were not met with this specimen result therefore, no HPV testing was performed. . Performed By: #### 4 [id number] #### [facility] [address] [place] [address] Dr. Jeremiah Roberts Specimen adequacy: Comment Normal [facility] Comment on above: Result Comment: Sati sfactory for evaluation. Endocervical and/or squamous metaplastic cells (endocervical component) are present. Performed By: #### 4 [id number] #### [facility] [address] [place] [address] Dr. Jeremiah Roberts Vital Signs Date Time Vital Sign Value Performing Clinician Facility 05-26-2023 15:46-0500 Body mass index (BMI) [Ratio] 30.54 kg/m2 Annemarie Rome PA Work Phone: [facility] 05-26-2023 15:46-0500 Body weight 75.75 kg Annemarie Conwayronald NOGUERA Work Phone: [facility] 05-26-2023 15:46-0500 Diastolic blood pressure 64 mm[Hg] Annemarie Conwayey PA Work Phone: [facility] 05-26-2023 15:46-0500 Systolic blood pressure 106 mm[Hg] Annemarie Peter PA Work Phone: [facility] 05-19-2023 13:00-0500 Body mass index (BMI) [Ratio] 31.55 kg/m2 Hilary Lombardi INFRASTRUCTURE TECHNICIAN-HIRED HELP Work Phone: [facility] 05-19-2023 13:00-0500 Body weight 75.75 kg Hilary Lombardi INFRASTRUCTURE TECHNICIAN-HIRED HELP Work Phone: [facility] 05-19-2023 13:00-0500 Diastolic blood pressure 60 mm[Hg] Hilary Lombardi INFRASTRUCTURE TECHNICIAN-HIRED HELP [facility] 05-19-2023 13:00-0500 Heart rate 96 /min Hilary Lombardi INFRASTRUCTURE TECHNICIAN-HIRED HELP Work Phone: [facility] 05-19-2023 13:00-0500 Respiratory rate 16 /min Hilary Lombardi INFRASTRUCTURE TECHNICIAN-HIRED HELP [facility] 05-19-2023 13:00-0500 SaO2% (BldA) [Mass fraction] 98 % Hilary Lombardi INFRASTRUCTURE TECHNICIAN-HIRED HELP [facility] 05-19-2023 13:00-0500 Systolic blood pressure 110 mm[Hg] Hilary Lombardi INFRASTRUCTURE TECHNICIAN-HIRED HELP Work Phone: [facility] Encounters Encounter Date Encounter Type Care Provider Facility Start: 08-24-2023 End: 08-24-2023 ambulatory DIANDRA JAN Not Available Start: 08-10-2023 End: 08-10-2023 ambulatory DIANDRA JAN Not Available Start: 07-26-2023 End: 07-26-2023 ambulatory ANNEMARIE ROME Not Available Start: 07-01-2023 End: 07-02-2023 ambulatory Octavio SCRANTON Facility:[facility] Start: 06-27-2023 End: 06-27-2023 ambulatory DIANDRA ANDUJARZIO Not Available Start: 05-26-2023 End: 05-26-2023 ambulatory ANNEMARIE PETER Not Available Start: 05-26-2023 End: 05-26-2023 Patient encounter procedure Annemarie NOGUERA Work Phone: [facility] Work Phone: Start: 05-26-2023 End: 05-26-2023 Periodic preventive med est patient 18-39 yrs Annemarie NOGUERA Work Phone: [facility] Comment on above: Well woman exam with routine gynecological exam; Second trimester ; Screening, , for anatomic survey; Vaginal discharge; STD exposure; Anxiety, generalized (CMS/[facility]) Start: 05-26-2023 [facility] Result Encounter Annemarie NOGUERA Work Phone: [facility] Unsolicited Start: 05-26-2023 External Result Encounter Annemarie NOGUERA Work Phone: [facility] Unsolicited Start: 05-26-2023 External Result Encounter Annemarie NOGUERA Work Phone: [facility] Unsolicited Start: 05-19-2023 End: 05-19-2023 ambulatory [facility] Start: 05-19-2023 End: 05-19-2023 Office outpatient new 20 minutes [facility] INFRASTRUCTURE TECHNICIAN-HIRED HELP Work Phone: [facility] Comment on above: Other depression (Pr imary Dx) Start: 04-28-2023 End: 04-28-2023 ambulatory DIANDRA JAN Not Available Start: 04-14-2023 End: 04-14-2023 ambulatory ANNEMARIE PETER Not Available Start: 03-31-2023 End: 03-31-2023 ambulatory ANNEMARIE PETER Not Available Start: 02-19-2023 ambulatory Geovany Antoine acility:[facility] Start: 11-05-2022 End: 11-08-2022 Evaluation and management of inpatient Oralia Calvert Facility:[facility] Start: 11-02-2021 End: 11-02-[address] DIANDRA ROY Facility: Start: 04-22-2021 End: 04-22-2021 ambulatory Bobby Knox Other [facility] Other Start: 04-22-2021 Telephone encounter Bobby Antoine [facility] Procedures Date Procedure Procedure Detail Performing Clinician [...] (8 - Td or Tdap) [facility] Start: 05-19-2024 Adult BMI Follow Up Plan Adult BMI Follow Up Plan [facility] Start: 05-19-2024 Adult BMI Screening Adult BMI Screen ing [facility] Start: 05-19-2024 Tobacco Screening Tobacco Screening [facility] Start: 10-26-2023 End: 10-26-2023 Patient encounter procedure 10/26/2023 1:30 PM EDT [facility] [place] [id number] Hilary Lombardi, INFRASTRUCTURE TECHNICIAN-HIRED HELP [address] [place] [address] [facility] Start: 06-27-2023 End: 06-27-2023 Patient encounter procedure 06/27/2023 2:10 PM EDT Routine [facility] [address] [phone] Diandra Roy, DO [address] [place] [address] [facility] Start: 06-07-2023 End: 06-07-2023 Professional / ancillary services management 06/07/2023 1:00 PM EST Ancillary Procedure [facility] [address] [id number] [facility] Start: 05-26-2023 End: 08-24-2023 Alpha fetoprotein, maternal Alpha fetoprotein, maternal Lab Routine Second trimester Expected: 05/26/2023 (Approximate), Expires: 08/24/2023 [facility] Comment on above: Expected: 05/26/2023 (Approximate), Expires: 08/24/2023 Start: 05-26-2023 End: 05-26-2024 US for US OB ANATOMY SINGLE W US OB CERVICAL LENGTH Imaging Routine Screening, , for anatomic survey Expected: 05/26/2023 (Approximate), Expires: 05/26/2024 [facility] Comment on above: Expected: 05/26/2023 (Approximate), Expires: 05/26/2024 Start: 12-17-2022 COVID-19 Vaccine ( season) COVID-19 Vaccine ( season) [facility] Start: 12-17-2022 Influenza vaccination P [facility] Start: 2018 Screening for malign ant neoplasm of cervix Pap Smear [facility] Start: 2009 Depression Screening Depression Scre ening [facility] CHLAMYDIA TRACHOMATI S (GENITO/STI) CHLAMYDIA TRACHOMATIS (GENITO/STI) Lab Routine STD exposure Ordered: 05/26/2023 [facility] Comment on above: Ordered: 05/26/2023 Cytology Cervical or vaginal smear or scraping study Pap Smear Pathology and Cytology Routine Well woman exam with routine gynecological exam Ordered: 05/26/2023 [facility] Work Phone: Comment on above: Ordered: 05/26/2023 Neisseria gonorrhoea e DNA [Presence] in Unspecified specimen by UNA with probe detection Neisseria gonorrhea DNA probe, direct Lab Routine STD exposure Ordered: 05/26/2023 [facility] Comment on above: Ordered: 05/26/2023 SURESWAB(R) ADVANCED VAGINITIS PLUS, TMA SURESWAB(R) ADVANCED VAGINITIS PLUS, TMA Pathology and Cytology Routine Vaginal discharge Ordered: 05/26/2023 [facility] Comment on above: Ordered: 05/26/2023 Immunizations Immunization Date Immunization Notes Care Provider [facility] 02-09-2022 influenza virus vaccine, unspecified formulation Hilary Lombardi APRN-[facility] Work Phone: [facility] 03-05-2021 COVID-19 Vaccine Moderna - Documentation Purposes Only Bobby Knox Other [facility] Other 04-22-2020 influenza, seasonal, injectable, preservative free Bobby Knox Other [facility] Other 04-22-2020 tetanus toxoid, reduced diphtheria toxoid, and acellular pertussis vaccine, adsorbed Bobby Knox Other [facility] Other Payers Date Payer Category Payer Self-pay 2022 Medicaid [id number] 2022 Unknown [id number] 2021 Unknown BCBS BCBS [id number] 2021-Present [phone] [address] [place] [address] [id number] 1995 Unknown [id number] [id number] 1995 Unknown [id number] 2.16.840.1.462659.3.579.2.1286 1995 Unknown [id number] 2.16.840.1.353775.3.579.2.1259 1995 Unknown [id number] 2.16.840.1.602898.3.579.2.1259 1995 Unknown [id number] 2.16.840.1.709454.3.579.2.9 1997 Unknown [id number] 2.16.840.1.469852.3.579.2.1259 1995 Unknown [id number] 2.16.840.1.876617.3.579.2.9 1995 Unknown [id number] 2.16.840.1.360859.3.579.2.9 1997 Unknown [id number] 2.16.840.1.902365.3.579.2.9 1997 Unknown [id number] 2.16.840.1.244229.3.579.2.1259 1959 Unknown [id number] 2.1 [id number] 1959 Unknown [id number] Unknown [id number] 2.16.840.1.109825.3.579.2.531 Unknown [id number] 2.16.840.1.651017.3.579.2.531 Social History Date Type Detail Facility Start: 11-05-2022 End: 05-19-2023 Sex Assigned At [facility] Start: 10-28-2016 End: 11-05-2022 Tobacco smoking status SDIS Never smoked tobacco [facility] Start: 05-19-2023 Alcohol intake Lifetime non-d danielle (finding) [facility] Start: 11-05-2022 End: 05-19-2023 History of Social function [facility] Childcare Unknown [facility] Start: 1995 Sex Assigned At Not on file P [facility] Start: 11-05-2022 Tobacco use and exposure Smokeless tobacco non-user [facility] Start: 05-26-2023 Alcohol intake Ex-drinker (finding) [facility] Start: 11-05-2022 Alcohol Comment Occasional alcohol u se [facility] Start: 01-29-2023 [facility] History of Present illness Narrative 05-26-2023 [...] nursing note reviewed. Exam conducted with a territory business manager present. Vitals: Estimated body mass index is [...] obtained without difficulty and patient was given [facility] order to have obtained. Follow Up: Patient is to return to our office in 4 weeks for routine OB appointment Documented by Margarita Lion LPN on behalf of: POORNIMA Hughes documented in this encounter [facility] History of Present illness Narrative 05-19-2023 Hilary Lombardi APRN-ARYAN - 05/19/2023 1:00 PM EST Note Date & Type Note Facility 05-19-2023 History of Presen t illness Narrative Images from the original note were not included. [address] [place] [address] SUBJECTIVE: Patient ID: Luli Jose is a [...] Chase 05/19/23 1322 documented in this encounter [facility] Evaluation note 04-22-2021 Note Date & Type Note Facility 04-22-2021 Evaluation note Encounter Date Diagnosis Assessment Notes Apr, Acute vaginitis (ICD-10 - N76.0) [facility] Other Evaluation note Note Date & Type Note Facility Evaluation note Diagnosis Other depression- Primary documented in this encounter [facility] Evaluation note Note Date & Type Note Facility Evaluation note Diagnosis Well woman exam with routine gynecological exam Routine gynecological examination Second trimester state, incidental Screening, , for anatomic survey Encounter for anatomic survey Vaginal discharge Leukorrhea, not specified as infective STD exposure Anxiety, generalized (CMS/[facility]) documented in this encounter [facility] History general Narrative - Reported Note Date & Type Note Facility History general Narrative - Reported Type Medical History asthma Hospitalization History child x 2 [facility] Other Instructions Attachments Note Date & Type Note Facility Instructions The following attachments cannot be sent through Care Everywhere.Depression (Greenlandic)documented in this encounter [facility] Summary Purpose Family History No Family History [...] DATE CREATED AUTHOR AUTHOR'S ORGANIZ ATION 05/14/2023 [facility] DATE CREATED AUTHOR AUTHOR'S ORGANIZ ATION 05/22/2023 [facility] DATE CREATED AUTHOR AUTHOR'S ORGANIZ ATION 07/02/2023 [facility] DATE CREATED AUTHOR AUTHOR'S ORGANIZ ATION 08/26/2023 [facility] EPIC Reason for Visit (unrecogniz ed section and content) Reason Comments Well Women Visit Routine Visit Reason Comments New Patient Care Teams (unrecognized sec tion and content) Ground Instructor Advanced Relationship Specialty Start Date End Date Hilary Lombardi APRN-HIRED HELP [address] [place] [address] PCP - General Family Medicine 05/19/23 FOR [...] BE BASED ON THE PRIMARY CLINICAL RECORDS. [employer] provides no warranty or guarantee of the accuracy or completeness of information in this document.
== END 2023-08-30 08:06 | disposition home or self-care (01) ==
LOC: NOMS 08:06
PROVIDERS: Visit Provider Obstetrics & Gynecology
DX: O26.849 Uterine size-date discrepancy, unspecified trimester (principal); Z3A.33 33 weeks gestation of pregnancy
CPT/HCPCS: 76816

== ENCOUNTER 2023-09-27 19:11 | Outpatient (REF) | payer OTHER, SELFPAY ==
--- OUTSIDE RECORDS SUMMARY | 2023-09-27 19:15 | XMS_ITS ---
Patient Summarization (C-CDA 2.1 CCD) Created on: September 27, 2023 LULI JOSE : 1995 Sex: Female Author Organization Sample organization Care Team Providers Care Credit Verification Clerk Name Role Phone Bobby Knox Unavailable JAN, DR IJM Attending Unavailable JAN, DR JIM Consulting Unavailable DR DIANDRA ROY Admitting Unavailable LILO, DR LAUREN Primary Care Unavailable Oralia Calvert Primary Care Unavailab Ayush Cadena Attending Unavailable Geovany Moran Admitting Unavailab Geovany Riley Admitting Unavailab Geovany Riley Attending Unavailab Oralia Ruggiero Primary Care Unavailab ward Lombardi APRNHilary BAEZA Primary [facility] Provide r HILARY LOMBARDI Attending Unavailable ORALIA CALVERT Referring Unavailable HILARY LOMBARDI Primary Care Unavailable Unavailable Primary Care Provider UnavailOctavio Rene Attending Unavailable ANNEMARIE PETER Attending Unavailable DIANDRA ROY Attending Unavailable ANNEMARIE PETER Attending Unavailable DIANDRA ROY Attending Unavailable ANNEMARIE PETER Attending Unavailable DIANDRA ROY Attending Unavailable DIANDRA ROY Attending Unavailable ANNEMARIE PETER Attending Unavailable DIANDRA ROY Attending Unavailable DIANDRA ROY Attending Unavailable Allergies Allergy Classification Reported Allergen(s) Allergy Type Date of Onset Reaction(s) Facility (6 sources) 1-octacosanol; Translations: [OCTACOSANOL] Drug Allergy 04-14-[address] [facility] Encounters Encounter Date Encounter Type Care Provider Facility Start: 09-27-2023 End: 09-27-2023 ambulatory DIANDRA ROY Not Available Start: 09-21-2023 End: 09-21-2023 ambulatory DIANDRA JAN Not Available Start: 09-07-2023 End: 09-07-2023 ambulatory ANNEMARIE PETER Not Available Start: 08-24-2023 End: 08-24-2023 ambulatory DIANDRA JAN Not Available Start: 08-10-2023 End: 08-10-2023 ambulatory DIANDRA JAN Not Available Start: 07-26-2023 End: 07-26-2023 ambulatory ANNEMARIE ROME Not Available Start: 07-01-2023 End: 07-02-2023 ambulatory Octavio TAHIR Facility:[facility] Start: 06-27-2023 End: 06-27-2023 ambulatory DIANDRA JAN Not Available Start: 05-26-2023 End: 05-26-2023 Patient encounter procedure Annemarie NOGUERA Work Phone: [facility] Work Phone: Start: 05-26-2023 End: 05-26-2023 Periodic preventive med est patient 18-39 yrs Annemarie NOGUERA Work Phone: [facility] Comment on above: Well woman exam with routine gynecological exam; Second trimester ; Screening, , for anatomic survey; Vaginal discharge; STD exposure; Anxiety, generalized (CMS/HCC) Start: 05-26-2023 End: 05-26-2023 ambulatory ANNEMARIE ROME Not Available Start: 05-26-2023 Clinisync Result Encounter Annemarie NOGUERA Work Phone: [facility] Unsolicited Start: 05-26-2023 External Result Encounter Annemarie NOGUERA Work Phone: [facility] Unsolicited Start: 05-26-2023 External Result Encounter Annemarie NOGUERA Work Phone: [facility] Unsolicited Start: 05-19-2023 End: 05-19-2023 ambulatory [facility] Start: 05-19-2023 End: 05-19-2023 Office outpatient new 20 minutes [facility] REQUIREMENTS ANALYST-LABORATORY DEVELOPMENT TECHNICIAN Work Phone: [facility] Comment on above: Other depression (Pr imary Dx) Start: 04-28-2023 End: 04-28-2023 ambulatory DIANDRA ROY Not Available Start: 04-14-2023 End: 04-14-2023 ambulatory ANNEMARIE PETER Not Available Start: 03-31-2023 End: 03-31-2023 ambulatory ANNEMARIE PETER Not Available Start: 02-19-2023 ambulatory Geovany Antoine acility:[facility] Start: 11-05-2022 End: 11-08-2022 Evaluation and management of inpatient Oralia Calvert Facility:[facility] Start: 11-02-2021 End: 11-02-[address] DIANDRA ROY Facility: Start: 04-22-2021 End: 04-22-2021 ambulatory Bobby Knox Other [employer] Other Start: 04-22-2021 Telephone encounter Bobby Antoine [facility] [place] Immunizations Immunization Date Immunization Notes Care Provider [facility] 02-09-2022 influenza virus vaccine, unspecified formulation Hilary Lombardi REQUIREMENTS ANALYST-LABORATORY DEVELOPMENT TECHNICIAN Work Phone: [place] 03-05-2021 COVID-19 Vaccine Moderna - Documentation Purposes Only Bobby Knox Other [employer] Other 04-22-2020 influenza, seasonal, injectable, preservative free Bobby Knox Other [employer] Other 04-22-2020 tetanus toxoid, reduced diphtheria toxoid, and acellular pertussis vaccine, adsorbed Bobby Knox Other [employer] Other Medications Current Medications Medication Drug Class(es) Dates Sig (Normalized) Sig (Original) [id number] 200 actuat albuterol 0.09 mg/actuat metered dose [...] MORNING 30 tablet 0 05/16/2023 Active vit no.100-senl-alflr ( PLUS VITAMIN-MINERAL) 27 mg iron- 1 mg tablet (1 source) Start: 05-16-2023 vit no.209-mzkx-llyyd ( PLUS VITAMIN-MINERAL) 27 mg iron- 1 [...] doses. 10 tablet 0 04/17/2022 05/19/2023 Discontinued Payers Date Payer Category Payer Self-pay 2022 Medicaid [id number] 2022 Unknown [id number] 2021 Unknown BCBS BCBS [id number] 2021-Present [phone] [address] [place] [address] [id number] 1995 Unknown [id number] 2.16.840.1.331116.3.579.2.593 1995 Unknown [id number] 2.16.840.1.058441.3.579.2.1286 1995 Unknown [id number] 2.16.840.1.978375.3.579.2.9 1995 Unknown [id number] 2.16.840.1.506228.3.579.2.1259 1995 Unknown [id number] 2.16.840.1.234578.3.579.2.9 1995 Unknown [id number] 2.16.840.1.840833.3.579.2.1259 1995 Unknown [id number] 2.16.840.1.538782.3.579.2.1259 1995 Unknown [id number] 2.16.840.1.073475.3.579.2.1259 1995 Unknown [id number] 2.16.840.1.433811.3.579.2.9 1995 Unknown [id number] 2.16.840.1.624162.3.579.2.1259 1995 Unknown [id number] 2.16.840.1.560828.3.579.2.1259 1995 Unknown [id number] 2.16.840.1.258100.3.579.2.1259 1997 Unknown [id number] 2.16.840.1.000817.3.579.2.1259 1959 Unknown [id number] 2.1 6.840.1.894937.19 1959 Unknown [id number] Unknown [id number] 2.16.840.1.027712.3.579.2.531 Unknown [id number] 2.16.840.1.419872.3.579.2.531 Plan of Treatment Date Care Activity Detail Author Start: 04-22-2030 DTaP,Tdap and Td Vaccines (8 - Td or Tdap) DTaP,Tdap and Td Vaccines (8 - Td or Tdap) [facility] Start: 05-19-2024 Adult BMI Follow Up Plan Adult BMI Follow Up Plan [facility] Start: 05-19-2024 Adult BMI Screening Adult BMI Screen ing [facility] Start: 05-19-2024 Tobacco Screening Tobacco Screening [facility] Start: 10-26-2023 End: 10-26-2023 Patient encounter procedure 10/26/2023 1:30 PM EDT Office Visit [facility] [address] [place] [id number] Hilary Lombardi, DEON-LABORATORY DEVELOPMENT TECHNICIAN [address] [place], [place] [id number] [facility] Start: 06-27-2023 End: 06-27-2023 Patient encounter procedure 06/27/2023 2:10 PM EDT Routine [facility] [address] [place] [address] Diandra Roy, [address] [place] [address] [facility] Start: 06-07-2023 End: 06-07-2023 Professional / ancillary services management 06/07/2023 1:00 PM EST Ancillary Procedure [facility] [address] [place] [address] [facility] Start: 05-26-2023 End: 08-24-2023 Alpha fetoprotein, maternal Alpha fetoprotein, maternal Lab Routine Second trimester Expected: 05/26/2023 (Approximate), Expires: 08/24/2023 [facility] Comment on above: Expected: 05/26/2023 (Approximate), Expires: 08/24/2023 Start: 05-26-2023 End: 05-26-2024 US for US OB ANATOMY SINGLE W US OB CERVICAL LENGTH Imaging Routine Screening, , for anatomic survey Expected: 05/26/2023 (Approximate), Expires: 05/26/2024 [facility] Comment on above: Expected: 05/26/2023 (Approximate), Expires: 05/26/2024 Start: 12-17-2022 COVID-19 Vaccine ( season) COVID-19 Vaccine ( season) [facility] Start: 12-17-2022 Influenza vaccination [facility] Start: 2018 Screening for malign ant neoplasm of cervix Pap Smear [facility] Start: 2009 Depression Screening Depression Scre ening [facility] CHLAMYDIA TRACHOMATI S (GENITO/STI) CHLAMYDIA TRACHOMATIS (GENITO/STI) Lab Routine STD exposure Ordered: 05/26/2023 [facility] Comment on above: Ordered: 05/26/2023 Cytology Cervical or vaginal smear or scraping study Pap Smear Pathology and Cytology Routine Well woman exam with routine gynecological exam Ordered: 05/26/2023 [facility] Work Phone: Comment on above: Ordered: 05/26/2023 Neisseria gonorrhoea e DNA [Presence] in Unspecified specimen by UNA with probe detection Neisseria gonorrhea DNA probe, direct Lab Routine STD exposure Ordered: 05/26/2023 [facility] Comment on above: Ordered: 05/26/2023 SURESWAB(R) ADVANCED VAGINITIS PLUS, TMA SURESWAB(R) ADVANCED VAGINITIS PLUS, TMA Pathology and Cytology Routine Vaginal discharge Ordered: 05/26/2023 [facility] Comment on above: Ordered: 05/26/2023 Problems Active Problems Problem Classification Problem Date [...] Episodic Unclassified (1 source) Onset: 05-19-2023 05-19-2023 Procedures Date Procedure Procedure Detail Performing Clinician Start: 05-26-2023 URETHRITIS/DISCHARGE PLUS VAGINITIS (HTRX) Annemarie NOGUERA Work Phone: Start: 05-26-2023 IGP,APTIMA HPV,AGE GDLN Annemarie NOGUERA Work Phone: Start: 05-26-2023 Urnls dip stick/tabl et rgnt non-auto w/o micrscp Annemarie NOGUERA Work Phone: Results Test Name Value Interpretation Reference Range Facility [facility] 07-01-2023 Consent [id number]# 1.00TIFF Normal [facility] Registrationon 07-01-2023 Registration [id number]# 1.00TIFF Normal [facility] IGP,APTIMA HPV,AGE GDLNon AGE GDLN ACOG TESTING Note . [facility] Comment on above: TESTS RESULT FLAG UN ITS REF RANGE LAB Clinician Provided Cytology Information Source.............Endocervix No. of containers..01 ThinPrep Vial Age Algo ACOG Alyssa... -16 05 FLAG LEGEND: L-Low Normal,H-High Normal,LL-Alert Low,HH-Alert High <-Panic Low,>-Panic High,A-Abnormal,AA-Critical Abnormal Performed at: 01 [address] [place] [address] Karrie Jimenez MD, IGP, RFX APTIMA HPV ASCU Note . [facility] Comment on above: TESTS RESULT FLAG UN ITS REF RANGE LAB DIAGNOSIS: 02 NEGATIVE FOR INTRAEPITHELIAL LESION OR MALIGNANCY. Specimen adequacy: 02 Satisfactory for evaluation. No endocervical component is identified. Performed by: 02 Bk Hays, Broadcast Engineer ([facility]) . 02 Note: Note 02 The [...] <-Panic Low,>-Panic High,A-Abnormal,AA-Critical Abnormal Performed at: [address] [place] [address] Karrie Jimenez MD, Performed at: = - [facility] [id number] Car Carder: Karrie Jimenez MD, Phone: [phone] Performed at: [address] [id number] Car Carder: Karrie Jimenez MD, Phone: [phone] [facility] URETHRITIS/DISCHARGE PLUS VA GINITIS (HTRX)on 05-27-2023 ATOPOBIUM VAGINAE 16.087 Abnormal [facility] ATOPOBIUM VAGINAE Detected Abnormal [facility] BVAB 2,3 (BACTERIAL VAGINOSIS ASSOCIATED BACTERIA 2, 3); MOBILUNCUS SPP 20.57 Abnormal [facility] Healthcare BVAB 2,3 (BACTERIAL VAGINOSIS ASSOCIATED BACTERIA 2, 3); MOBILUNCUS SPP Detected Abnormal [facility] LYN ALBICANS, PARAPSILOSIS, TROPICALIS 0 [facility] LYN ALBICANS, PARAPSILOSIS, TROPICALIS Not detected [facility] LYN GLABRATA 0 [facility] LYN GLABRATA Not [facility] LYN KRUSEI 0 [facility] LYN KRUSEI Not detected [facility] CHLAMYDIA TRACHOMATIS 0 [facility] CHLAMYDIA TRACHOMATIS Not detected [facility] DFR (A1, A5), SUL (1,2) 0 PPM [facility] DFR (A1, A5), SUL (1,2) Not detected [facility] Healthcare ERMB, C; MEFA 24.689 Abnormal PPM [facility] care ERMB, C; MEFA Detected Abnormal [facility] care GARDNERELLA VAGINALIS 18.724 Abnormal [facility] GARDNERELLA VAGINALIS Detected Abnormal [facility] Interpretation and review of laboratory results Abnormal [facility] MEGASPHAERA (TYPES 1, 2) 0 [facility] MEGASPHAERA (TYPES 1, 2) Not detected [facility] MYCOPLASMA GENITALIUM 0 [facility] MYCOPLASMA GENITALIUM Not detected [facility] NEISSERIA GONORRHOEAE 0 [facility] NEISSERIA GONORRHOEAE Not detected [facility] TET B, TET M 23.465 Abnormal [facility] TET B, TET M Detected Abnormal [facility] are TRICHOMONAS VAGINALIS 0 [facility] TRICHOMONAS VAGINALIS Not detected [facility] e Urinalysis macro (dipstick) panel (U)on 05-26-2023 Bilirubin, UA Negative Negative - 4(70) +++ mg/dL [facility] Blood, UA Negative Negative - 50 Xander/mcL [facility] Clarity, UA Clear [facility] Color, UA Yellow [facility] Glucose, UA Negative Negative - 2000(110) ++++ mg/dL [facility] Interpretation and review of laboratory results Abnormal [facility] Ketones, UA Negative Negative - 160(16) ++++ mg/dL [facility] Leukocytes, UA Negative Negative - 500+++ Vince/mcL [facility] Nitrite, UA Negative Negative - Positive [facility] pH, UA 5.5 5 - 9 [facility] Healthcar e Protein, UA Positive Negative - 1999(20) ++++ mg/dL [facility] Spec Grav, UA 1.020 1 - 1.03 [facility] Urobilinogen, UA 1.0 0.2 - 12 mg/dL [facility] Health[facility] e Lipid Panelon 11-05-2022 Cholesterol [Mass/Vol] 152 mg/dL Normal 140-200 [facility] Comment on above: Result Comment: Chol less than 200 mg/dl low risk Chol 201-239 mg/dl borderline risk Chol 240 mg/dl and greater high risk Performed By: #### L IPID, TSH3 wRFLX, [id number] #### [facility] [address] [place] [address] Cholesterol in HDL [Mass/Vol] 46 mg/dL Normal 23-92 [facility] Comment on above: Result Comment: HDL CHOL ATP-III CLASSIFICATION Cardiovascular Risk HDL > or equal to 60 mg/dL LOW HDL < 40 mg/dL HIGH Performed By: #### L IPID, TSH3 wRFLX, [id number] #### [facility] [address] Cholesterol.total/Ch olesterol in HDL [Mass ratio] 3.3 {ratio} Normal <5.0 [facility] Comment on above: Performed By: #### L IPID, TSH3 wRFLX, [id number] #### [facility] [address] [place], [place] [id number] [facility] LDL Cholesterol,Calculat ed 85 mg/dL Normal 0-100 [facility] Comment on above: Result Comment: LDL ATP III CLASSIFICATION LDL less than 100 mg/dL Optimal LDL 100-129 mg/dL Near or above optimal LDL 130-159 mg/dL Borderline high LDL 160-189 mg/dL High LDL greater than 189 mg/dL Very high Performed By: #### L IPID, TSH3 wRFLX, [id number] #### [facility] [address] [place] [id number] [place] Triglyceride w/Reflex 106 mg/dL Normal 0-149 [facility] Comment on above: Result Comment: TRIG ATP III CLASSIFICATION TRIG less than 150 mg/dL Normal TRIG 150-199 mg/dL Borderline high TRIG 200-500 mg/dL High TRIG greater than 500 mg/dL Very high Standard traceable to the Center for Disease Conrtrol and Prevention (CDC) test method. Performed By: #### L IPID, TSH3 wRFLX, [id number] #### [facility] [address] [place] [address] VLDL CHOLESTEROL 21 mg/dL Normal [facility] Comment on above: Performed By: #### L IPID, TSH3 wRFLX, [id number] #### [address] Thyroid Stim Hormone w/Rflxo n 11-05-2022 Thyroid Stim Hormone w/Rflx 1.37 u[iU]/mL Normal 0.45-5.33 [facility] Comment on above: Performed By: #### L IPID, TSH3 wRFLX, [id number] #### [place] [id number] [facility] Vitamin D 25 Hydroxy Totalon 11-05-2022 Vitamin D 25 Hydroxy Total 31.4 ng/mL Normal 30-100 [facility] Comment on above: Result Comment: ALEXANDRA MIN D STATUS 25(OH)VITAMIN D RANGE (ng/mL) Deficient <20 Insufficient 20 to <30 Sufficient 30 to 100 Reference: Gerry MF,Levy NC, Gonzalo DINH, et al. Evaluation,treatment, and prevention of vitamin D deficiency; an Endocrine Society clinical practice guideline. JCEM. 2010; 96(7):1911-30. PERFORMED BY: [place] [address] PATHOLOGIST DEDICATED INTERMODAL TRUCK DRIVER MERISSA CONTI M.D. Performed By: #### L IPID, TSH3 wRFLX, [id number] #### [place] [id number] [facility] PAP ACOG PANEL 2: 21 to 29on 11-05-2021 . . Normal [facility] Comment on above: Performed By: #### [id number] #### [facility] [address] [place] [address] Dr. Jeremiah Roberts Age Gdln ACOG Testing 21-29 [facility] Comment on above: Performed By: #### [id number] #### [facility] [address] [place] [address] Dr. Jeremiah Roberts DIAGNOSIS: Comment Normal [facility] Comment on above: Result Comment: NEGA TIVE FOR INTRAEPITHELIAL LESION OR MALIGNANCY. Performed By: #### [id number] #### [facility] [address] [place] [address] Dr. Jeremiah Roberts Methodology: Comment [facility] Comment on above: Result Comment: This liquid based ThinPrep(R) pap test was screened with the use of an image guided system. Performed By: #### [id number] #### [facility] [address] [place] [address] Dr. Jeremiah Roberts Note: Comment [facility] Comment on above: Result Comment: The Pap smear is a screening test designed to aid in the detection of premalignant and malignant conditions of the uterine cervix. It is not a diagnostic procedure and should not be used as the sole means of detecting cervical cancer. Both false-positive and false-negative reports do occur. . Performed By: #### [id number] #### [facility] [address] [place] [address] Dr. Jeremiah Roberts Performed by: Comment Normal [facility] Comment on above: Result Comment: Pancho Billy Broadcast Engineer (ASCP) Performed By: #### [id number] #### [facility] [address] [place] [address] Dr. Jeremiah Roberts Reflex Criteria: Comment [facility] Comment on above: Result Comment: The HPV DNA reflex criteria were not met with this specimen result therefore, no HPV testing was performed. . Performed By: #### 4 [id number] #### [facility] [address] [place] [address] Dr. Jeremiah Roberts Specimen adequacy: Comment Normal [facility] Comment on above: Result Comment: Sati sfactory for evaluation. Endocervical and/or squamous metaplastic cells (endocervical component) are present. Performed By: #### [id number] #### [facility] [address] [place] [address] Dr. Jeremiah Roberts Social History Date Type Detail Facility Start: 05-26-2023 Alcohol intake Ex-drinker (finding) [facility] Start: 11-05-2022 End: 05-19-2023 Sex Assigned At [facility] Start: 05-19-2023 Alcohol intake Lifetime non-d danielle (finding) [facility] Start: 11-05-2022 End: 05-19-2023 History of Social function [facility] Start: 01-29-2023 [facility]care Start: 11-05-2022 Tobacco use and exposure Smokeless tobacco non-user [facility] Start: 11-05-2022 Alcohol Comment Occasional alcohol u se [facility] Start: 10-28-2016 End: 11-05-2022 Tobacco smoking status NHIS Never smoked tobacco [facility] Start: 1995 Sex Assigned At Not on file P [facility] Childcare Unknown [facility] Vital Signs Date Time Vital Sign Value Performing Clinician Facility 05-26-2023 15:46-0500 Body mass index (BMI) [Ratio] 30.54 kg/m2 Annemarie NOGUERA Work Phone: [facility] 05-26-2023 15:46-0500 Body weight 75.75 kg Annemarie NOGUERA Work Phone: [facility] 05-26-2023 15:46-0500 Diastolic blood pressure 64 mm[Hg] Annemarie NOGUERA Work Phone: [facility] 05-26-2023 15:46-0500 Systolic blood pressure 106 mm[Hg] Annemarie NOGUERA Work Phone: [facility] 05-19-2023 13:00-0500 Body mass index (BMI) [Ratio] 31.55 kg/m2 Hilary VALDEZ Work Phone: [facility] 05-19-2023 13:00-0500 Body weight 75.75 kg Hilary Lombardi [employer] Work Phone: [facility] 05-19-2023 13:00-0500 Diastolic blood pressure 60 mm[Hg] Hilary Lombardi [employer] Work Phone: [facility] 05-19-2023 13:00-0500 Heart rate 96 /min Hilary Lombardi [employer] Work Phone: [facility] 05-19-2023 13:00-0500 Respiratory rate 16 /min Hilary Lombardi [employer] Work Phone: [facility] 05-19-2023 13:00-0500 SaO2% (BldA) [Mass fraction] 98 % Hilary DyeTerraWialen [employer] Work Phone: [facility] 05-19-2023 13:00-0500 Systolic blood pressure 110 mm[Hg] Hilary Lombardi [employer] Work Phone: [facility] History of Present illness Narrative 05-26-2023 POORNIMA [...] nursing note reviewed. Exam conducted with a watermelon inspector present. Vitals: Estimated body mass index is 30.54 kg/m as calculated from the following: Height as of 11/11/20: 5' 2 . Weight as of this [...] obtained without difficulty and patient was given [facility] order to have obtained. Follow Up: Patient is to return to our office in 4 weeks for routine OB appointment Documented by Margarita Lion LPN on behalf of: POORNIMA Hughes documented in this encounter [facility] History of Present illness Narrative 05-19-2023 Hilary Lombardi APRN-LABORATORY DEVELOPMENT TECHNICIAN - 05/19/2023 1:00 PM EST Note Date & Type Note Facility 05-19-2023 History of Presen t illness Narrative Images from the original note were not included. [id number] [facility] [id number] SUBJECTIVE: Patient ID: Luli Jose is a [...] Chase 05/19/23 1322 documented in this encounter [facility] [employer] [facility] Evaluation note 04-22-2021 Note Date & Type Note Facility 04-22-2021 Evaluation note Encounter Date Diagnosis Assessment Notes Apr, Acute vaginitis (ICD-10 - N76.0) [employer] Other Evaluation note Note Date & Type Note Facility Evaluation note Diagnosis Other depression- Primary documented in this encounter [facility] Evaluation note Note Date & Type [...] History asthma Hospitalization History child x 2 [employer] Other Instructions Attachments Note Date & Type Note Facility Instructions The following attachments cannot be sent through Care Everywhere.Depression (Uzbek)documented in this encounter [facility] Purpose Family History No [...] DATE CREATED AUTHOR AUTHOR'S ORGANIZ ATION 05/14/2023 [facility] DATE CREATED AUTHOR AUTHOR'S ORGANIZ ATION 05/22/2023 [facility] DATE CREATED AUTHOR AUTHOR'S ORGANIZ ATION [facility]/02/2023 [facility] DATE CREATED AUTHOR AUTHOR'S ORGANIZ ATION 09/27/2023 [facility] d[facility] Specialists EPIC Reason for Visit (unrecogniz ed section and content) Reason Comments Well Women Visit Routine Visit Reason Comments New Patient Care Teams (unrecognized sec tion and content) Credit Verification Clerk Relationship Specialty Start Date End Date Hilary Lombardi APRN-ARYAN [address] [place] [address] PCP - General Family Medicine 05/19/23 FOR [...] BE BASED ON THE PRIMARY CLINICAL RECORDS. [employer] [facility]. provides no warranty or guarantee of the accuracy or completeness of information in this document.
== END 2023-09-27 19:12 | disposition home or self-care (01) ==
LOC: LAB 19:11
PROVIDERS: Visit Provider Obstetrics & Gynecology
DX: Z34.93 Encounter for supervision of normal pregnancy, unspecified, third trimester (principal)
CPT/HCPCS: 87081

== ENCOUNTER 2023-10-03 22:06 | Observation (INO) | payer OTHER, SELFPAY ==
--- OUTSIDE RECORDS SUMMARY | 2023-10-03 22:10 | XMS_ITS | CCD ---
Author Organization [facility] Care Team Providers Care Audio Production Instructor Name Role Phone Bobby Knox Unavailable DR [...] ROY Attending Unavailable DIANDRA ROY Attending Unavailable DIANDRA ROY Attending Unavailable Allergies Allergy Classification Reported Allergen(s) Allergy Type Date of Onset Reaction(s) Facility (6 sources) 1-octacosanol; Translations: [OCTACOSANOL] Drug Allergy 04-14-2023 [facility] Medications Current Medications Medication Drug Class(es) Dates Sig (Normalized) Sig (Original) [id number] 200 actuat albuterol 0.09 mg/actuat metered dose [...] MORNING 30 tablet 0 05/16/2023 Active vit no.709-[id number] ( PLUS VITAMIN-MINERAL) 27 mg iron- 1 mg tablet (1 source) Start: 05-16-2023 vit no.173-[id number]-[id number] ( PLUS VITAMIN-MINERAL) 27 mg iron- 1 [...] Interpretation Reference Range Facility [facility] 07-01-2023 Consent [id number]# 1.00TIFF Normal [facility] Registrationon 07-01-2023 Registration [id number]# 1.00TIFF Normal [facility] IGP,APTIMA HPV,AGE GDLNon AGE GDLN ACOG TESTING Note . [facility] Comment on above: TESTS RESULT FLAG UN ITS REF RANGE LAB Clinician Provided Cytology Information Source.............Endocervix No. of containers..01 ThinPrep Vial Age Algo ACOG Alyssa... FLAG LEGEND: L-Low Normal,H-High Normal,LL-Alert Low,HH-Alert High <-Panic Low,>-Panic High,A-Abnormal,AA-Critical Abnormal Performed at: 01 =G [address] [address] Karrie Jimenez MD, IGP, RFX APTIMA HPV ASCU Note . [facility] Comment on above: TESTS RESULT FLAG UN ITS REF RANGE LAB DIAGNOSIS: 02 NEGATIVE FOR INTRAEPITHELIAL LESION OR MALIGNANCY. Specimen adequacy: 02 Satisfactory for evaluation. No endocervical component is identified. Performed by: 02 Bk Hays, Sap Basis Architect (ASCP) . 02 Note: Note 02 The Pap [...] <-Panic Low,>-Panic High,A-Abnormal,AA-Critical Abnormal Performed at: [address] [address] Karrie Jimenez MD, Performed at: = - [facility] [id number] Policy Loan Calculator: Karrie Jimenez MD, Phone: [phone] Performed at: [address] [id number] Policy Loan Calculator: Karrie Jimenez MD, Phone: [phone] [facility] URETHRITIS/DISCHARGE PLUS VA GINITIS (HTRX)on 05-27-2023 ATOPOBIUM VAGINAE 16.087 Abnormal [facility] ATOPOBIUM VAGINAE Detected Abnormal [facility] BVAB 2,3 (BACTERIAL VAGINOSIS ASSOCIATED BACTERIA 2, 3); MOBILUNCUS SPP 20.57 Abnormal [facility] BVAB 2,3 (BACTERIAL VAGINOSIS ASSOCIATED BACTERIA 2, 3); MOBILUNCUS SPP Detected Abnormal [facility] Healthcare LYN ALBICANS, PARAPSILOSIS, TROPICALIS 0 [facility] LYN ALBICANS, PARAPSILOSIS, TROPICALIS Not detected [facility] Healthcare LYN GLABRATA 0 [facility] LYN GLABRATA Not detected [facility] LYN KRUSEI 0 [facility] LYN KRUSEI Not detected [facility] CHLAMYDIA TRACHOMATIS 0 [facility] CHLAMYDIA TRACHOMATIS Not detected [facility] DFR (A1, A5), SUL (1,2) 0 PPM [facility] Healthcare DFR (A1, A5), SUL (1,2) Not detected [facility] ERMB, C; MEFA 24.689 Abnormal PPM [facility] Health care ERMB, C; MEFA Detected Abnormal [facility] care GARDNERELLA VAGINALIS 18.724 Abnormal [facility] GARDNERELLA VAGINALIS Detected Abnormal [facility] Interpretation and review of laboratory results Abnormal [facility] MEGASPHAERA (TYPES 1, 2) 0 [facility] MEGASPHAERA (TYPES 1, 2) Not detected [facility] MYCOPLASMA GENITALIUM 0 [facility] MYCOPLASMA GENITALIUM Not detected [facility] NEISSERIA GONORRHOEAE 0 [facility] NEISSERIA GONORRHOEAE Not detected [facility] TET B, TET M 23.465 Abnormal PPM [facility] Healthc are TET B, TET M Detected [facility] TRICHOMONAS VAGINALIS 0 [facility] TRICHOMONAS VAGINALIS Not detected [facility]inalysis macro (dipstick) panel (U)on 05-26-2023 Bilirubin, UA Negative Negative - 4(70) +++ mg/dL [facility] Blood, UA Negative Negative - 50 Xander/mcL [facility] Clarity, UA Clear Located within [facility] re Color, UA Yellow [facility] Healthcar e Glucose, UA Negative Negative - 1999(110) ++++ mg/dL [facility] Interpretation and review of laboratory results Abnormal [facility] Ketones, UA Negative Negative - 160(16) ++++ mg/dL [facility] Leukocytes, UA Negative Negative - 500+++ Vince/mcL [facility] Nitrite, UA Negative Negative - Positive [facility] pH, UA 5.5 5 - 9 [facility] Healthcar e Protein, UA Positive Negative - 1999(20) ++++ mg/dL [facility] Spec Grav, UA 1.020 1 - 1.03 [facility] Urobilinogen, UA 1.0 0.2 - 12 mg/dL [facility] Lipid Panelon 11-05-2022 Cholesterol [Mass/Vol] 152 mg/dL Normal 140-200 [facility] Comment on above: Result Comment: Chol less than 200 mg/dl low risk Chol 201-239 mg/dl borderline risk Chol 240 mg/dl and greater high risk Performed By: #### L IPID, TSH3 wRFLX, [id number] #### [facility] [address] [id number] [facility] Cholesterol in HDL [Mass/Vol] 46 mg/dL Normal 23-92 [facility] Comment on above: Result Comment: HDL CHOL ATP-III CLASSIFICATION Cardiovascular Risk HDL > or equal to 60 mg/dL LOW HDL < 40 mg/dL HIGH Performed By: #### L IPID, TSH3 wRFLX, [id number] #### [facility] [address] [place] [address] [facility] Cholesterol.total/Ch olesterol in HDL [Mass ratio] 3.3 {ratio} Normal <5.0 [facility] Comment on above: Performed By: #### L IPID, TSH3 wRFLX, [id number] #### [facility] [address] [address] [place] LDL Cholesterol,Calculat ed 85 mg/dL Normal 0-100 [facility] Comment on above: Result Comment: LDL ATP III CLASSIFICATION LDL less than 100 mg/dL Optimal LDL 100-129 mg/dL Near or above optimal LDL 130-159 mg/dL Borderline high LDL 160-189 mg/dL High LDL greater than 189 mg/dL Very high Performed By: #### L IPID, TSH3 wRFLX, [id number] #### [facility] [address] [place] [address] [place] Triglyceride w/Reflex 106 mg/dL Normal 0-149 [facility] Comment on above: Result Comment: TRIG ATP III CLASSIFICATION TRIG less than 150 mg/dL Normal TRIG 150-199 mg/dL Borderline high TRIG 200-500 mg/dL High TRIG greater than 500 mg/dL Very high Standard traceable to the Center for Disease Conrtrol and Prevention (CDC) test method. Performed By: #### L IPID, TSH3 wRFLX, [id number] #### [facility] [address] [place] [address] VLDL CHOLESTEROL 21 mg/dL Normal [facility] Comment on above: Performed By: #### L IPID, TSH3 wRFLX, [id number] #### [address] Thyroid Stim Hormone w/Rflxo n 11-05-2022 Thyroid Stim Hormone w/Rflx 1.37 u[iU]/mL Normal 0.45-5.33 [facility] Comment on above: Performed By: #### L IPID, TSH3 wRFLX, [id number] #### [address] Vitamin D 25 Hydroxy Totalon 11-05-2022 Vitamin D 25 Hydroxy Total 31.4 ng/mL Normal 30-100 [facility] Comment on above: Result Comment: ALEXANDRA MIN D STATUS 25(OH)VITAMIN D RANGE (ng/mL) Deficient <20 Insufficient 20 to <30 Sufficient 30 to 100 Reference: Gerry MF,Levy NC, Robbie-Adair DINH, et al. Evaluation,treatment, and prevention of vitamin D deficiency; an Endocrine Society clinical practice guideline. JCEM. 2010; 96(7):1911-30. PERFORMED BY: [place] [address] PATHOLOGIST REGULATORY AFFAIRS STRATEGY SPECIALIST MERISSA CONTI M.D. Performed By: #### L IPID, TSH3 wRFLX, [id number] #### [address] PAP ACOG PANEL 2: 21 to 29on 11-05-2021 . . [facility] Comment on above: Performed By: #### [id number] #### [facility] [address] [address] [address] Jeremiah Roberts Age Gdln ACOG Testing 23- Normal [facility] Comment on above: Performed By: #### 4 [id number] #### [facility] [address] [place] [address] Dr. Jeremiah Roberts DIAGNOSIS: Comment Normal [facility] Comment on above: Result Comment: NEGA TIVE FOR INTRAEPITHELIAL LESION OR MALIGNANCY. Performed By: #### [id number] #### [facility] [address] [place] [address] Dr. Jeremiah Roberts Methodology: Comment Normal [facility] Comment on above: Result Comment: This liquid based ThinPrep(R) pap test was screened with the use of an image guided system. Performed By: #### 4 [id number] #### [facility] [address] [place] [address] Dr. Jeremiah Roberts Note: Comment Normal [facility] Comment on above: Result Comment: The Pap smear is a screening test designed to aid in the detection of premalignant and malignant conditions of the uterine cervix. It is not a diagnostic procedure and should not be used as the sole means of detecting cervical cancer. Both false-positive and false-negative reports do occur. . Performed By: #### [id number] #### [facility] [address] [place] [address] Dr. Jeremiah Roberts Performed by: Comment Normal [facility] Comment on above: Result Comment: Pancho Billy Sap Basis Architect (ASCP) Performed By: #### [id number] #### [facility] [address] [place] [address] Dr. Jeremiah Roberts Reflex Criteria: Comment Normal [facility] Comment on above: Result Comment: The HPV DNA reflex criteria were not met with this specimen result therefore, no HPV testing was performed. . Performed By: #### 4 [id number] #### [facility] [address] [place] [address] Dr. Jeremiah Roberts Specimen adequacy: Comment Normal [facility] Comment on above: Result Comment: Sati sfactory for evaluation. Endocervical and/or squamous metaplastic cells (endocervical component) are present. Performed By: #### 4 [id number] #### [facility] [address] [place] [address] Dr. Jeremiah Roberts Vital Signs Date Time Vital Sign Value Performing Clinician Facility 05-26-2023 15:46-0500 Body mass index (BMI) [Ratio] 30.54 kg/m2 Annemarie NOGUERA Work Phone: [facility] 05-26-2023 15:46-0500 Body weight 75.75 kg Annemarie NOGUERA Work Phone: [facility] 05-26-2023 15:46-0500 Diastolic blood pressure 64 mm[Hg] Annemarie NOGUERA Work Phone: [facility] 05-26-2023 15:46-0500 Systolic blood pressure 106 mm[Hg] Annemarie Peter PA Work Phone: [facility] 05-19-2023 13:00-0500 Body mass index (BMI) [Ratio] 31.55 kg/m2 Hilary Lombardi BANKMAN-FIELD LOGISTICS COORDINATOR Work Phone: [facility] 05-19-2023 13:00-0500 Body weight 75.75 kg Hilary Lombardi BANKMAN-FIELD LOGISTICS COORDINATOR Work Phone: [facility] 05-19-2023 13:00-0500 Diastolic blood pressure 60 mm[Hg] Hilary Lombardi BANKMAN-FIELD LOGISTICS COORDINATOR Work Phone: [facility] 05-19-2023 13:00-0500 Heart rate 96 /min Hilary Lombardi BANKMAN-FIELD LOGISTICS COORDINATOR Work Phone: [facility] 05-19-2023 13:00-0500 Respiratory rate 16 /min Hilary Lombardi BANKMAN-FIELD LOGISTICS COORDINATOR Work Phone: [facility] 05-19-2023 13:00-0500 SaO2% (BldA) [Mass fraction] 98 % Hilary Lombardi BANKMAN-FIELD LOGISTICS COORDINATOR Work Phone: [facility] 05-19-2023 13:00-0500 Systolic blood pressure 110 mm[Hg] Hilary Lombardi BANKMAN-FIELD LOGISTICS COORDINATOR Work Phone: [facility] Encounters Encounter Date Encounter Type Care Provider Facility Start: 10-03-2023 End: 10-03-2023 ambulatory DIANDRA JAN Not Available Start: 09-27-2023 End: 09-27-2023 ambulatory DIANDRA JAN Not Available Start: 09-21-2023 End: 09-21-2023 ambulatory DIANDRA JAN Not Available Start: 09-07-2023 End: 09-07-2023 ambulatory ANNEMARIE ROME Not Available Start: 08-24-2023 End: 08-24-2023 ambulatory DIANDRA JAN Not Available Start: 08-10-2023 End: 08-10-2023 ambulatory DIANDRA JAN Not Available Start: 07-26-2023 End: 07-26-2023 ambulatory ANNEMARIE ROME Not Available Start: 07-01-2023 End: 07-02-2023 [facility] Start: 06-27-2023 End: 06-27-2023 ambulatory DIANDRA JAN [...] (CMS/HCC) Start: 05-26-2023 End: 05-26-2023 ambulatory ANNEMARIE PETER Not Available Start: 05-26-2023 [facility] Result Encounter Annemarie NOGUERA Work Phone: [facility] Unsolicited Start: 05-26-2023 External Result Encounter Annemarie NOGUERA Work Phone: [facility] Unsolicited Start: 05-26-2023 External Result Encounter Annemarie NOGUERA Work Phone: [facility] Unsolicited Start: 05-19-2023 End: 05-19-2023 ambulatory [facility] Start: 05-19-2023 End: 05-19-2023 Office outpatient new 20 minutes Hilary Lombardi BANKMAN-FIELD LOGISTICS COORDINATOR Work Phone: [facility] Comment on above: Other depression (Pr imary Dx) Start: 04-28-2023 End: 04-28-2023 ambulatory DIANDRA ROY Not Available Start: 04-14-2023 End: 04-14-2023 ambulatory ANNEMARIE PETER Not Available Start: 03-31-2023 End: 03-31-2023 ambulatory ANNEMARIE PETER Not Available Start: 02-19-2023 ambulatory Geovany Antoine acility:[facility] Start: 11-05-2022 End: 11-08-2022 Evaluation and management of inpatient Oralia Calvert Facility:[facility] Start: 11-02-2021 End: 11-02-[address] DIANDRA ROY Facility: Start: 04-22-2021 End: 04-22-2021 ambulatory Bobby Knox Other [employer] Other Start: 04-22-2021 Telephone encounter Bobby Antoine [facility] [place] Procedures Date Procedure Procedure Detail Performing Clinician [...] Td Vaccines (8 - Td or Tdap) [facility] Start: 05-19-2024 Adult BMI Follow Up Plan Adult BMI Follow Up Plan [facility] Start: 05-19-2024 Adult BMI Screening Adult BMI Screen ing [facility] Start: 05-19-2024 Tobacco Screening Tobacco Screening [facility] Start: 10-26-2023 End: 10-26-2023 Patient encounter procedure 10/26/2023 1:30 PM EDT Office Visit [facility] [address] [place] [address] Hilary Lombardi, BANKMAN-FIELD LOGISTICS COORDINATOR [address] [place] [address] [facility] Start: 06-27-2023 End: 06-27-2023 Patient encounter procedure 06/27/2023 2:10 PM EDT Routine [facility] [address] [facility] [place] [id number] Diandra Roy, DO [address] [place], [place] [id number] [facility] Start: 06-07-2023 End: 06-07-2023 Professional / ancillary services management 06/07/2023 1:00 PM EST Ancillary Procedure [facility] [address] [facility] [place] [address] [facility] Start: 05-26-2023 End: 08-24-2023 Alpha fetoprotein, maternal Alpha fetoprotein, maternal Lab Routine Second trimester Expected: 05/26/2023 (Approximate), Expires: 08/24/2023 [facility] Comment on above: Expected: 05/26/2023 (Approximate), Expires: 08/24/2023 Start: 05-26-2023 End: 05-26-2024 US for US OB ANATOMY SINGLE W US OB CERVICAL LENGTH Imaging Routine Screening, , for anatomic survey Expected: 05/26/2023 (Approximate), Expires: 05/26/2024 [facility] Comment on above: Expected: 05/26/2023 (Approximate), Expires: 05/26/2024 Start: 12-17-2022 COVID-19 Vaccine () COVID-[address] () [facility] Start: 12-17-2022 Influenza vaccination P [facility] Start: 2018 Screening for malign ant neoplasm of cervix Pap Smear [facility] Start: 2009 Depression Screening Depression Scre ening [facility] CHLAMYDIA TRACHOMATI S (GENITO/STI) CHLAMYDIA TRACHOMATIS (GENITO/STI) Lab Routine STD exposure Ordered: 05/26/2023 [facility] Comment on above: Ordered: 05/26/2023 Cytology Cervical or vaginal smear or scraping study Pap Smear Pathology and Cytology Routine Well woman exam with routine gynecological exam Ordered: 05/26/2023 [facility] Work Phone: Comment on above: Ordered: 05/26/2023 Neisseria gonorrhoea e DNA [Presence] in Unspecified specimen by UNA with probe detection Neisseria gonorrhea DNA probe, direct Lab Routine STD exposure Ordered: 05/26/2023 [facility] Comment on above: Ordered: 05/26/2023 SURESWAB(R) ADVANCED VAGINITIS PLUS, TMA SURESWAB(R) ADVANCED VAGINITIS PLUS, TMA Pathology and Cytology Routine Vaginal discharge Ordered: 05/26/2023 [facility] Comment on above: Ordered: 05/26/2023 Immunizations Immunization Date Immunization Notes Care Provider Abelardo landaverde 02-09-2022 influenza virus vaccine, unspecified formulation Hilary Lombardi APRN-[facility] Work Phone: [facility] 03-05-2021 COVID-19 Vaccine Moderna - Documentation Purposes Only Bobby Knox Other [employer] Other 04-22-2020 influenza, seasonal, injectable, preservative free Bobby Knox Other [employer] Other 04-22-2020 tetanus toxoid, reduced diphtheria toxoid, and acellular pertussis vaccine, adsorbed Bobby Knox Other [employer] Other Payers Date Payer Category Payer Self-pay 2022 Medicaid [id number] 2022 Unknown [id number] 2021 Unknown BCBS BCBS [id number] 2021-Present [phone] [address] [place] [address] [id number] 1997 Unknown [id number] 2.16.840.1.687691.3.579.2.593 1997 Unknown [id number] 2.16.840.1.553559.3.579.2.1286 1997 Unknown [id number] 2.16.840.1.473433.3.579.2.9 1997 Unknown [id number] 2.16.840.1.715915.3.579.2.9 1997 Unknown [id number] 2.16.840.1.754240.3.579.2.9 1997 Unknown [id number] 2.16.840.1.819894.3.579.2.9 1997 Unknown [id number] 2.16.840.1.869161.3.579.2.9 1997 Unknown [id number] 2.16.840.1.286630.3.579.2.1259 1997 Unknown [id number] 2.16.840.1.602601.3.579.2.1259 1997 Unknown [id number] 2.16.840.1.047753.3.579.2.1259 1997 Unknown [id number] 2.16.840.1.194616.3.579.2.9 1997 Unknown [id number] 2.16.840.1.987472.3.579.2.1259 1997 Unknown [id number] 2.16.840.1.807737.3.579.2.1259 1997 Unknown [id number] 2.16.840.1.230282.3.579.2.1259 1959 Unknown [id number] 2.1 6.840.1.921924.19 1959 Unknown [id number] Unknown [id number] 2.16.840.1.307978.3.579.2.531 Unknown [id number] 2.16.840.1.955293.3.579.2.531 Social History Date Type Detail Facility Start: 11-05-2022 End: 05-19-2023 Sex Assigned At [facility] yste Start: 10-28-2016 End: 11-05-2022 Tobacco smoking status NHIS Never smoked tobacco [facility] Start: 05-19-2023 Alcohol intake Lifetime non-d danielle (finding) [facility] Start: 11-05-2022 End: 05-19-2023 [address] of [address] [facility] Childcare Unknown [facility] Start: 1997 Sex Assigned At Not on file P [facility] Start: 11-05-2022 Tobacco use and exposure Smokeless tobacco non-user [facility] Start: 05-26-2023 Alcohol intake Ex-drinker (finding) [facility] Start: 11-05-2022 Alcohol Comment Occasional alcohol u se [facility] Start: 01-29-[address] [facility] hcare History of Present illness Narrative 05-26-2023 [...] nursing note reviewed. Exam conducted with a machine operator hop picker present. Vitals: Estimated body mass index is [...] obtained without difficulty and patient was given [facility] order to have obtained. Follow Up: Patient is to return to our office in 4 weeks for routine OB appointment Documented by Margarita Lion LPN on behalf of: POORNIMA Hughes documented in this encounter [facility] History of Present illness Narrative 05-19-2023 Hilary Lombardi APRN-FIELD LOGISTICS COORDINATOR - 05/19/2023 1:00 PM EST Note Date & Type Note Facility 05-19-2023 History of Presen t illness Narrative Images from the original note were not included. [address] [facility] [address] SUBJECTIVE: Patient ID: Luli Jose is a [...] Chase 05/19/23 1322 documented in this encounter [facility] Evaluation note 04-22-2021 Note Date & Type Note Facility 04-22-2021 Evaluation note Encounter Date Diagnosis Assessment Notes Apr, Acute vaginitis (ICD-10 - N76.0) [employer] Other Evaluation note Note Date & Type Note Facility Evaluation note Diagnosis Other depression- Primary [facility] this encounter [facility] note Note Date [...] History asthma Hospitalization History child x 2 [employer] Other Instructions Attachments Note Date & Type Note Facility Instructions The following attachments cannot be sent through Care Everywhere.Depression (Ivorian)documented in this encounter [facility] Summary Purpose Family History No Family [...] DATE CREATED AUTHOR AUTHOR'S ORGANIZ ATION 05/14/2023 [facility] DATE CREATED AUTHOR AUTHOR'S ORGANIZ ATION 05/22/2023 [facility] DATE CREATED AUTHOR AUTHOR'S ORGANIZ ATION 07/02/2023 [facility] DATE CREATED AUTHOR AUTHOR'S ORGANIZ ATION 10/03/2023 [facility] Specialists EPIC Reason for Visit (unrecogniz ed section and content) Reason Comments Well Women Visit Routine Visit Reason Comments New Patient Care Teams (unrecognized sec tion and content) Audio Production Instructor Relationship Specialty Start Date End Date Hilary Lombardi APRN-FIELD LOGISTICS COORDINATOR [address] [place] [address] PCP - General Family Medicine 05/19/23 FOR [...] BE BASED ON THE PRIMARY CLINICAL RECORDS. [facility]. provides no warranty or guarantee of the accuracy or completeness of information in this document.
[2023-10-03 22:24] VITALS: BP 114/74; PULSE 79
[2023-10-03 22:43] LABS: Bilirubin Urine NEGATIVE (NEGATIVE); Blood Urine NEGATIVE (NEGATIVE); Clarity Urine CLEAR (CLEAR); Color Urine LT. YELLOW (YELLOW); Glucose Urine UA NEGATIVE (NEGATIVE); Ketones Urine NEGATIVE (NEGATIVE); Leukocyte Esterase Urine SMALL (NEGATIVE); Nitrite Urine NEGATIVE (NEGATIVE); Protein Urine NEGATIVE (NEG/TRACE); Urobilinogen Urine 0.2 EU/dL (0.2-1.0); pH Urine 6.5 (5.0-9.0)
[2023-10-03 22:58] LABS: Bacteria Urine NONE SEEN #/HPF (NONE SEEN); Mucus Urine NONE SEEN (NONE SEEN); RBC Urine NONE SEEN #/HPF (0-2); Squamous Epithelial Cell Urine MODERATE #/LPF (NONE/RARE); Urine Microscopic Indicated YES
[2023-10-03 22:59] LABS: Amorphous Sediment Urine FEW; Cast Seen? NONE SEEN #/LPF (NONE SEEN); Crystals Seen? None Seen #/HPF (None Seen); Urine Culture Indicated YES
[2023-10-04] MEDS: LACTATED RINGER'S SOLUTION 1,000 ML 125 ML IV (00:20)
[2023-10-04] MEDS: AMPICILLIN SODIUM 1,000 MG in 0.9 % SODIUM CHLORIDE 50 ML 100 MG IV ×2 (01:35→07:43)
[2023-10-04 06:19] VITALS: BP 108/69; PULSE 68; TEMP 36.8
[2023-10-04 07:40] VITALS: TEMP 36.4
[2023-10-04 07:46] VITALS: BP 116/70; PULSE 60
== END 2023-10-04 12:05 | disposition home or self-care (01) ==
PROVIDERS: Admitting Provider Obstetrics & Gynecology; Visit Provider Obstetrics & Gynecology
DX: O47.9 False labor, unspecified (principal); Z3A.00 Weeks of gestation of pregnancy not specified
CPT/HCPCS: 81001; 87086; 96365; 96376; G0378; G0379; J0290

== ENCOUNTER 2023-10-10 19:44 | Inpatient (IN) | payer OTHER, SELFPAY ==
[2023-10-10] VITALS (8 sets, daily range): BP systolic 112–126; BP diastolic 63–76; PULSE 61–130
[2023-10-10 20:41] LABS: Hematocrit 36.5 % (36.0-48.0); Hemoglobin 12.2 g/dL (12.0-16.0); Mean Corpuscular HGB Conc 33.4 g/dL (29.9-35.2); Mean Corpuscular Hemoglobin 31.7 pg (26.7-34.0); Mean Corpuscular Volume 94.8 fL (81.0-99.0); Mean Platelet Volume 13.1 fL (9.5-13.5); Platelet Count 151 10^3/uL (150-450); Red Blood Count 3.85 10^6/uL (4.20-5.40); Red Cell Distribution Width 13.1 % (11.0-15.0); White Blood Count 10.2 10^3/uL (4.0-11.0)
[2023-10-10 20:55] LABS: Amphetamine Screen Urine NEGATIVE (NEGATIVE); Barbiturates Screen Urine NEGATIVE (NEGATIVE); Benzodiazepines Screen Urine NEGATIVE (NEGATIVE); Buprenorphine Screen Urine NEGATIVE (NEGATIVE); Cannabinoid Screen Urine NEGATIVE (NEGATIVE); Cocaine Screen Urine NEGATIVE (NEGATIVE); Methadone Screen Urine NEGATIVE (NEGATIVE); Methamphetamines Screen Urine NEGATIVE (NEGATIVE); Opiate Screen Urine NEGATIVE (NEGATIVE); Oxycodone Screen Urine NEGATIVE (NEGATIVE); Phencyclidine Screen Urine NEGATIVE (NEGATIVE); Tricyclic Antidepressant Urine NEGATIVE (NEGATIVE)
[2023-10-10] MEDS: NALBUPHINE HCL 10 MG/ML AMPULE IV (20:57)
[2023-10-10] MEDS: 0.9 % SODIUM CHLORIDE 1,000 ML 125 ML IV (20:57)
[2023-10-10] MEDS: OXYTOCIN/0.9 % SODIUM CHLORIDE 20 UNITS/1,000 ML PLAST..BAG 125 UNIT IV (21:57)
--- NOTE | 2023-10-10 21:59 | PM.OBPRCVD ---
Procedure Intrapartal events: None Induction method: none Delivery augmentation: rupture of membranes Delivery monitor: external FHT and external uterine Route of delivery: L&D Laceration Description: none Estimated blood loss (mL): 200 Disposition: floor Infant Delivery date: 10/10/23 Gender: male presentation: vertex Placental delivery description: Spontaneous cord description: 3 Vessels
[2023-10-10] MEDS: IBUPROFEN 600 MG TABLET PO (23:22)
[2023-10-11] MEDS: IBUPROFEN 600 MG TABLET PO ×3 (05:34→22:33)
[2023-10-11 06:21] LABS: Basophils Absolute Auto 0.1 10^3/uL (0.0-0.1); Basophils Percent Auto 0.3 % (0.2-2.0); Eosinophils Absolute Auto 0.1 10^3/uL (0.0-0.7); Eosinophils Percent Auto 0.4 % (0.9-7.0); Hematocrit 31.5 % (36.0-48.0); Hemoglobin 10.4 g/dL (12.0-16.0); Immature Granulocytes Abs Auto 0.08 10^3/uL (0.00-0.03); Immature Granulocytes Pct Auto 0.5 % (0.0-0.5); Lymphocytes Absolute Auto 2.2 10^3/uL (1.2-3.8); Lymphocytes Percent Auto 13.5 % (20.5-60.0); Mean Corpuscular Hemoglobin 31.5 pg (26.7-34.0); Mean Corpuscular Volume 95.5 fL (81.0-99.0); Mean Platelet Volume 13.5 fL (9.5-13.5); Monocytes Absolute Auto 1.3 10^3/uL (0.3-0.8); Monocytes Percent Auto 8.1 % (1.7-12.0); Neutrophils Absolute Auto 12.6 10^3/uL (1.4-6.5); Neutrophils Percent Auto 77.2 % (43.0-75.0); Platelet Count 152 10^3/uL (150-450); White Blood Count 16.3 10^3/uL (4.0-11.0)
--- NOTE | 2023-10-11 08:18 | P.OBPN_ITS ---
OB - PN: Subj Subjective Patient comments: no complaints and pain well controlled [place] status: doing well Exam Constitutional Vital Signs, click to edit/add: Last Vital Signs Pulse 62 10/10/23 23:58 Resp 18 10/11/23 00:00 BP 112/68 10/10/23 23:58 O2 Del Method Room Air 10/11/23 00:00 Documenting provider has reviewed patient's vital signs: yes Common normals: no apparent distress Respiratory Common normals: normal respiratory effort and clear to auscultation bilaterally Cardio Common normals: regular rate and regular rhythm GI Common normals: Normal to inspection, nondistended, normoactive bowel sounds present Extremity Common normals: no clubbing, cyanosis or edema and no calf tenderness Results Labs Labs: Short CBC 10/10/23 10/11/23 Range/Units 20:36 06:05 WBC 10.2 16.3 H (4.0-11.0) 10^3/uL Hgb 12.2 10.4 L (12.0-16.0) g/dL Hct 36.5 31.5 L (36.0-48.0) % Plt Count 151 152 (150-450) 10^3/uL OB - PN: A/P Plan - Vaginal Delivery day: 1 Plan: routine care Time Spent with Patient Time: Total time spent is greater than 50% in coordination of care (as documented) at patient's floor/unit and/or counseling patient: Total time spent with greater than 50% in coordination of care (as documented) at patient's floor/unit and/or counseling patient: less than 15 minutes
[2023-10-11 09:22] VITALS: BP 112/61; PULSE 92
[2023-10-11 09:32] VITALS: TEMP 37
[2023-10-11] MEDS: DOCUSATE SODIUM 100 MG CAPSULE PO ×2 (14:20→22:32)
[2023-10-11 17:24] VITALS: BP 140/76; PULSE 75; TEMP 36.6
[2023-10-11] MEDS: ACETAMINOPHEN 325 MG TABLET 650 MG PO (22:32)
[2023-10-11 23:47] VITALS: BP 107/66; PULSE 88
[2023-10-12] MEDS: CETIRIZINE HCL 10 MG TABLET PO (02:59)
--- NOTE | 2023-10-12 07:51 | P.OBPN_ITS ---
OB - PN: Subj Subjective Patient comments: no complaints and pain well controlled [place] status: doing well Exam Constitutional Vital Signs, click to edit/add: Last Vital Signs Temp 97.8 F 10/11/23 17:24 Pulse 88 10/11/23 23:47 Resp 18 10/11/23 23:45 BP 107/66 10/11/23 23:47 O2 Del Method Room Air 10/11/23 23:45 Documenting provider has reviewed patient's vital signs: yes Common normals: no apparent distress Respiratory Common normals: normal respiratory effort and clear to auscultation bilaterally Cardio Common normals: regular rate and regular rhythm GI Common normals: Normal to inspection, nondistended, normoactive bowel sounds present Extremity Common normals: no clubbing, cyanosis or edema and no calf tenderness OB - PN: A/P Plan - Vaginal Delivery day: 2 Plan: routine care, discharge home and follow up 6 weeks Time Spent with Patient Time: Total time spent is greater than 50% in coordination of care (as documented) at patient's floor/unit and/or counseling patient: Total time spent with greater than 50% in coordination of care (as documented) at patient's floor/unit and/or counseling patient: less than 15 minutes
[2023-10-12] MEDS: CITALOPRAM HYDROBROMIDE 20 MG TABLET PO (08:21)
[2023-10-12] MEDS: IBUPROFEN 600 MG TABLET PO (08:21)
[2023-10-12] MEDS: DOCUSATE SODIUM 100 MG CAPSULE PO (08:21)
[2023-10-12 08:23] VITALS: BP 133/60; PULSE 83
[2023-10-12 08:35] VITALS: TEMP 36.3
== END 2023-10-12 13:40 | disposition home or self-care (01) | DRG 560 ==
PROVIDERS: Admitting Provider Obstetrics & Gynecology; Visit Provider Obstetrics & Gynecology
DX: O80 Encounter for full-term uncomplicated delivery (principal); Z3A.38 38 weeks gestation of pregnancy; Z37.0 Single live birth; Z23 Encounter for immunization; Z79.899 Other long term (current) drug therapy
CPT/HCPCS: 36415; 59050; 59410; 80307; 85025; 85027; 86850; 86900; 86901; 96374; 96375; J2300

== ENCOUNTER 2023-10-17 08:05 | Outpatient (OUT) | payer OTHER, SELFPAY ==
--- OUTSIDE RECORDS SUMMARY | 2023-10-17 08:19 | XMS_ITS | CCD ---
Author Organization [facility] Care Team Providers Care Hogshead Builder Name Role Phone Bobby Knox Unavailable DR DIANDRA ROY Attending Unavailable JAN, DR JIM Consulting Unavailable DR DIANDRA ROY Admitting Unavailable LILO, DR LAUREN Primary Care Unavailable Oralia Calvert Primary Care Unavailab Ayush Cadena Attending Unavailable Geovany Moran Admitting Unavailab Geovany Riley Admitting Unavailab Geovany Riley Attending Unavailab Oralia Ruggiero Primary Care Unavailab ward Lombardi APRN-ARYAN, Hilary Primary Care Provide r HILARY LOMBARDI Attending [...] sources) 1-octacosanol; Translations: [OCTACOSANOL] Drug Allergy 04-14-2023 [facility] Medications Current Medications Medication Drug Class(es) Dates Sig (Normalized) Sig (Original) [id number] 200 actuat albuterol 0.09 mg/actuat metered dose [...] MORNING 30 tablet 0 05/16/2023 Active vit no.[id number] ( PLUS VITAMIN-MINERAL) 27 mg iron- 1 mg tablet (1 source) Start: 05-16-2023 vit no.[id number]-[id number] ( PLUS VITAMIN-MINERAL) 27 mg iron- 1 [...] Interpretation Reference Range Facility [facility] 07-01-2023 Consent [id number]# 1.00TIFF [facility] Registrationon 07-01-2023 Registration [id number]# 1.00TIFF Normal [facility] IGP,APTIMA HPV,AGE GDLNon AGE GDLN ACOG TESTING Note . [facility] Comment on above: TESTS RESULT FLAG UN ITS REF RANGE LAB Clinician Provided Cytology Information Source.............Endocervix No. of containers..01 ThinPrep Vial Age Algo ACOG Alyssa... FLAG LEGEND: L-Low Normal,H-High Normal,LL-Alert Low,HH-Alert High <-Panic Low,>-Panic High,A-Abnormal,AA-Critical Abnormal Performed at: 01 =G [facility] [address] Karrie Jimenez MD, IGP, RFX APTIMA HPV ASCU Note . [facility] Comment on above: TESTS RESULT FLAG UN ITS REF RANGE LAB DIAGNOSIS: 02 NEGATIVE FOR INTRAEPITHELIAL LESION OR MALIGNANCY. Specimen adequacy: 02 Satisfactory for evaluation. No endocervical component is identified. Performed by: 02 Bk Hays, Plating And Point Assembly Supervisor ([facility]) . 02 Note: Note 02 The Pap [...] <-Panic Low,>-Panic High,A-Abnormal,AA-Critical Abnormal Performed at: [address] [address] Karrie Jimenez MD, Performed at: =[facility] [id number] [employer] Supervisor: Karrie Jimenez MD, Phone: [phone] Performed at: [address] [id number] [employer] Supervisor: Karrie Jimenez MD, Phone: [phone] SP[facility] URETHRITIS/DISCHARGE PLUS VA GINITIS (HTRX)on 05-27-2023 ATOPOBIUM VAGINAE 16.087 Abnormal [facility] ATOPOBIUM VAGINAE Detected Abnormal [facility] BVAB 2,3 (BACTERIAL VAGINOSIS ASSOCIATED BACTERIA 2, 3); MOBILUNCUS SPP 20.57 Abnormal [facility] BVAB 2,3 (BACTERIAL VAGINOSIS ASSOCIATED BACTERIA 2, 3); MOBILUNCUS SPP Detected Abnormal [facility] LYN ALBICANS, PARAPSILOSIS, TROPICALIS 0 [facility] LYN ALBICANS, PARAPSILOSIS, TROPICALIS Not detected [facility] LYN GLABRATA 0 [facility] Hea lthcare LYN GLABRATA Not detected [facility] LYN KRUSEI 0 [facility] Healt hcare LYN KRUSEI Not detected N[facility] Hea lthcare CHLAMYDIA TRACHOMATIS 0 [facility] CHLAMYDIA TRACHOMATIS Not detected [facility] Healthcare DFR (A1, A5), SUL (1,2) 0 PPM [facility] Healthcare DFR (A1, A5), SUL (1,2) Not detected [facility] Healthcare ERMB, C; MEFA 24.689 Abnormal PPM [facility] care ERMB, C; MEFA Detected Abnormal [facility] care GARDNERELLA VAGINALIS 18.724 Abnormal [facility] [...] TET B, TET M 23.465 Abnormal PPM [facility] Healthc are TET B, TET M Detected [facility]normal [facility] TRICHOMONAS VAGINALIS 0 [facility] TRICHOMONAS VAGINALIS Not detected [facility] Urinalysis macro (dipstick) panel (U)on 05-26-2023 Bilirubin, UA Negative Negative - 4(70) +++ mg/dL [facility] Blood, UA Negative Negative - 50 Xander/mcL [facility] Clarity, UA Clear [facility] re Color, UA Yellow [facility] Healthcar e Glucose, UA Negative Negative - 1999(110) ++++ mg/dL [facility] Interpretation and review of laboratory results Abnormal [facility] Ketones, UA Negative Negative - 160(16) ++++ mg/dL [facility] Leukocytes, UA Negative Negative - 500+++ Vince/mcL [facility] Nitrite, UA Negative Negative - Positive [facility] pH, UA 5.5 5 - 9 [facility] Healthcar e Protein, UA Positive Negative - 1999(20) ++++ mg/dL [facility] Spec Grav, UA 1.020 1 - 1.03 [facility] Urobilinogen, UA 1.0 0.2 - 12 mg/dL [facility] e Lipid Panelon 11-05-2022 Cholesterol [Mass/Vol] 152 mg/dL Normal 140-200 [facility] Comment on above: Result Comment: Chol less than 200 mg/dl low risk Chol 201-239 mg/dl borderline risk Chol 240 mg/dl and greater high risk Performed By: #### L IPID, TSH3 wRFLX, [id number] #### [facility] [id number] [facility] Cholesterol in HDL [Mass/Vol] 46 mg/dL Normal 23-92 [facility] Comment on above: Result Comment: HDL CHOL ATP-III CLASSIFICATION Cardiovascular Risk HDL > or equal to 60 mg/dL LOW HDL < 40 mg/dL HIGH Performed By: #### L IPID, TSH3 wRFLX, [id number] #### [facility] [address] [place] [address] [facility] Cholesterol.total/Ch olesterol in HDL [Mass ratio] 3.3 {ratio} Normal <5.0 [facility] Comment on above: Performed By: #### L IPID, TSH3 wRFLX, [id number] #### [facility] [address] [id number] [place] LDL Cholesterol,Calculat ed 85 mg/dL Normal 0-100 [facility] Comment on above: Result Comment: LDL ATP III CLASSIFICATION LDL less than 100 mg/dL Optimal LDL 100-129 mg/dL Near or above optimal LDL 130-159 mg/dL Borderline high LDL 160-189 mg/dL High LDL greater than 189 mg/dL Very high Performed By: #### L IPID, TSH3 wRFLX, [id number] #### [facility] [address] [place] [address] [place] Triglyceride w/Reflex 106 mg/dL Normal 0-149 [facility] Comment on above: Result Comment: TRIG ATP III CLASSIFICATION TRIG less than 150 mg/dL Normal TRIG 150-199 mg/dL Borderline high TRIG 200-500 mg/dL High TRIG greater than 500 mg/dL Very high Standard traceable to the Center for Disease Conrtrol and Prevention (CDC) test method. Performed By: #### L IPID, TSH3 wRFLX, [id number] #### [facility] [address] [place] [address] VLDL CHOLESTEROL 21 mg/dL Normal [facility] Comment on above: Performed By: #### L IPID, TSH3 wRFLX, [id number] #### [facility] [address] [place] [address] Thyroid Stim Hormone w/Rflxo n 11-05-2022 Thyroid Stim Hormone w/Rflx 1.37 u[iU]/mL Normal 0.45-5.33 [facility] Comment on above: Performed By: #### L IPID, TSH3 wRFLX, [id number] #### [address] Vitamin D 25 Hydroxy Totalon 11-05-2022 Vitamin D 25 Hydroxy Total 31.4 ng/mL Normal 30-100 [facility] Comment on above: Result Comment: ALEXANDRA MIN D STATUS 25(OH)VITAMIN D RANGE (ng/mL) Deficient <20 Insufficient 20 to <30 Sufficient 30 to 100 Reference: Gerry MF,Levy NC, Gonzalo DINH, et al. Evaluation,treatment, and prevention of vitamin D deficiency; an Endocrine Society clinical practice guideline. JCEM. 2010; 96(7):1911-30. PERFORMED BY: [place] [address] PATHOLOGIST POTATO LOADER MERISSA CONTI M.D. Performed By: #### L IPID, TSH3 wRFLX, [id number] #### [address] PAP ACOG PANEL 2: 21 to 29on 11-05-2021 . . [facility] Comment on above: Performed By: #### [id number] #### [facility] [address] [place] [address] Dr. Jeremiah Roberts Age Gdln ACOG Testing - Normal [facility] Comment on above: Performed By: #### [id number] #### [facility] [address] [place] [address] Dr. Jeremiah Roberts DIAGNOSIS: Comment Normal [facility] Comment on above: Result Comment: NEGA TIVE FOR INTRAEPITHELIAL LESION OR MALIGNANCY. Performed By: #### [id number] #### [facility] [address] [place] [address] Dr. Jeremiah Roberts Methodology: Comment Normal [facility] Comment on above: Result Comment: This liquid based ThinPrep(R) pap test was screened with the use of an image guided system. Performed By: #### [id number] #### [facility] [address] [place] [address] Dr. Jeremiah Roberts Note: Comment Normal [facility] Comment on above: Result Comment: The Pap smear is a screening test designed to aid in the detection of premalignant and malignant conditions of the uterine cervix. It is not a diagnostic procedure and should not be used as the sole means of detecting cervical cancer. Both false-positive and false-negative reports do occur. . Performed By: #### [id number] #### [facility] [address] [place] [address] Dr. Jeremiah Roberts Performed by: Comment Normal [place] Comment on above: Result Comment: Pancho Billy, Plating And Point Assembly Supervisor (ASCP) Performed By: #### [id number] #### [facility] [address] [place] [address] Dr. Jeremiah Roberts Reflex Criteria: Comment Normal [facility] Comment on above: Result Comment: The HPV DNA reflex criteria were not met with this specimen result therefore, no HPV testing was performed. . Performed By: #### [id number] #### [facility] [address] [place] [address] Dr. Jeremiah Roberts Specimen adequacy: Comment Normal [facility] Comment on above: Result Comment: Sati sfactory for evaluation. Endocervical and/or squamous metaplastic cells (endocervical component) are present. Performed By: #### [id number] #### [facility] [address] [place] [address] Dr. Jeremiah Roberts Vital Signs Date Time Vital Sign Value Performing Clinician Facility 05-26-2023 15:46-0500 Body mass index (BMI) [Ratio] 30.54 kg/m2 Annemarie NOGUEAR Work Phone: [facility] 05-26-2023 15:46-0500 Body weight 75.75 kg Annemarie Rome PA Work Phone: [facility] 05-26-2023 15:46-0500 Diastolic blood pressure 64 mm[Hg] Annemarie Rome PA Work Phone: [facility] 05-26-2023 15:46-0500 Systolic blood pressure 106 mm[Hg] Annemarie Rome PA Work Phone: [facility] 05-19-2023 13:00-0500 Body mass index (BMI) [Ratio] 31.55 kg/m2 Hilary Lombardi ANIMATOR-CHAMPAGNE MAKER Work Phone: [facility] 05-19-2023 13:00-0500 Body weight 75.75 kg Hilary Lombardi ANIMATOR-CHAMPAGNE MAKER Work Phone: [facility] 05-19-2023 13:00-0500 Diastolic blood pressure 60 mm[Hg] Hilary Lombardi ANIMATOR-CHAMPAGNE MAKER Work Phone: [facility] 05-19-2023 13:00-0500 Heart rate 96 /min Hilary Lombardi ANIMATOR-CHAMPAGNE MAKER Work Phone: [facility] 05-19-2023 13:00-0500 Respiratory rate 16 /min Hilary Lombardi ANIMATOR-CHAMPAGNE MAKER Work Phone: [facility] 05-19-2023 13:00-0500 SaO2% (BldA) [Mass fraction] 98 % Hilary Lombardi ANIMATOR-CHAMPAGNE MAKER Work Phone: [facility] 05-19-2023 13:00-0500 Systolic blood pressure 110 mm[Hg] Hilary Lombardi ANIMATOR-CHAMPAGNE MAKER Work Phone: [facility] Encounters Encounter Date Encounter Type Care Provider Facility Start: 10-10-2023 End: 10-10-2023 ambulatory DIANDRA JAN Not Available Start: 10-03-2023 End: 10-03-2023 ambulatory DIANDRA JAN Not Available Start: 09-27-2023 End: 09-27-2023 ambulatory DIANDRA JAN Not Available Start: 09-21-2023 End: 09-21-2023 ambulatory DIANDRA JAN Not Available Start: 09-07-2023 End: 09-07-2023 ambulatory ANNEMARIE ROME Not Available Start: 08-24-2023 End: 08-24-2023 ambulatory DIANDRA JAN Not Available Start: 08-10-2023 End: 08-10-2023 ambulatory DIANDRA JAN Not Available Start: 07-26-2023 End: 07-26-2023 ambulatory ANNEMARIE PETER Not Available Start: 07-01-2023 End: 07-02-2023 ambulatory [facility] Facility:[facility] Start: 06-27-2023 End: 06-27-2023 ambulatory DIANDRA JAN [...] Department Unsolicited Start: 05-19-2023 End: 05-19-2023 ambulatory [facility] Start: 05-19-2023 End: 05-19-2023 Office outpatient new 20 minutes [facility] ANIMATOR-CHAMPAGNE MAKER Work Phone: [facility] Comment on above: Other depression (Pr imary Dx) Start: 04-28-2023 End: 04-28-2023 ambulatory DIANDRA ROY Not Available Start: 04-14-2023 End: 04-14-2023 ambulatory ANNEMARIE PETER Not Available Start: 03-31-2023 End: 03-31-2023 ambulatory ANNEMARIE PETER Not Available Start: 02-19-2023 ambulatory Geovany Antoine acility:[facility] Start: 11-05-2022 End: 11-08-2022 Evaluation and management of inpatient Oralia Calvert Facility:[facility] Start: 11-02-2021 End: 11-02-[address] DIANDRA ROY Facility: Start: 04-22-2021 End: 04-22-2021 ambulatory Bobby Knox Other [facility] Other Start: 04-22-2021 Telephone encounter Bobby Antoine [facility] [place] Procedures Date Procedure Procedure Detail Performing Clinician [...] - Td or Tdap) [facility] Start: 05-19-2024 Adult BMI Follow Up Plan Adult BMI Follow Up Plan [facility] Start: 05-19-2024 Adult BMI Screening Adult BMI Screen ing [facility] Start: 05-19-2024 Tobacco Screening Tobacco Screening [facility] Start: 10-26-2023 End: 10-26-2023 Patient encounter procedure 10/26/2023 1:30 PM EDT Office Visit [facility] [address] [place] [address] Hilary Lombardi, ANIMATOR-CHAMPAGNE MAKER [address] [place] [address] [facility] Start: 06-27-2023 End: 06-27-2023 Patient encounter procedure 06/27/2023 2:10 PM EDT Routine [facility] [address] [id number] Diandra Roy, DO [address] [place] [place], [place] [id number] [facility] Start: 06-07-2023 End: 06-07-2023 Professional / ancillary services management 06/07/2023 1:00 PM EST Ancillary Procedure [facility] [address] [facility] [facility] [place] [id number] [facility] Start: 05-26-2023 End: 08-24-2023 [...] (Approximate), Expires: 05/26/2024 Start: 12-17-2022 COVID-19 Vaccine (2 - 2023-24 season) COVID-19 Vaccine (2022-24 season) [facility] Start: 12-17-2022 Influenza vaccination P [facility] Start: 2018 Screening for malign ant neoplasm of cervix Pap Smear [facility] Start: 2009 Depression Screening Depression Scre ening [facility] CHLAMYDIA TRACHOMATI S (GENITO/STI) CHLAMYDIA TRACHOMATIS (GENITO/STI) Lab Routine STD exposure Ordered: 05/26/2023 [facility] Comment on above: Ordered: 05/26/2023 Cytology Cervical or vaginal smear or scraping study Pap Smear Pathology and Cytology Routine Well woman exam with routine gynecological exam Ordered: 05/26/2023 [facility] Work Phone: Comment on above: Ordered: 05/26/2023 [...] influenza virus vaccine, unspecified formulation Hilary Lombardi APRN-CHAMPAGNE MAKER Work Phone: [facility] 03-05-2021 COVID-19 Vaccine Moderna - Documentation Purposes Only Bobby Knox Other [facility] Other 04-22-2020 influenza, seasonal, injectable, preservative free Bobby Knox Other [facility] Other 04-22-2020 tetanus toxoid, reduced diphtheria toxoid, and acellular pertussis vaccine, adsorbed Bobby Knox Other [facility] Other Payers Date Payer Category Payer Self-pay 2022 Medicaid [id number] 2022 Unknown [id number] 2021 Unknown BCBS BCBS [id number] 2021-Present [phone] [address] [place] [address] [id number] 1997 Unknown [id number] 2.16.840.1.980417.3.579.2.593 1997 Unknown [id number] 2.16.840.1.970327.3.579.2.1286 1997 Unknown [id number] 2.16.840.1.572611.3.579.2.9 1997 Unknown [id number] 2.16.840.1.317460.3.579.2.9 1997 Unknown [id number] 2.16.840.1.284311.3.579.2.9 1997 Unknown [id number] 2.16.840.1.192228.3.579.2.9 1997 Unknown [id number] 2.16.840.1.804954.3.579.2.9 1997 Unknown [id number] 2.16.840.1.066202.3.579.2.9 1997 Unknown [id number] 2.16.840.1.564240.3.579.2.1259 1997 Unknown [id number] 2.16.840.1.259529.3.579.2.9 1997 Unknown [id number] 2.16.840.1.931363.3.579.2.9 1997 Unknown [id number] 2.16.840.1.472103.3.579.2.9 1997 Unknown [id number] 2.16.840.1.757826.3.579.2.1259 1997 Unknown [id number] 2.16.840.1.682462.3.579.2.1259 1997 Unknown [id number] 2.16.840.1.593222.3.579.2.1259 1959 Unknown [id number] 2.1 6.840.1.702128.19 1959 Unknown [id number] Unknown [id number] 2.16.840.1.411249.3.579.2.531 Unknown [id number] 2.16.840.1.909245.3.579.2.531 Social History Date Type Detail Facility Start: 11-05-2022 End: 05-19-2023 Sex Assigned At [facility] yste Start: 10-28-2016 End: 11-05-2022 Tobacco smoking status NHIS Never smoked tobacco [facility] Start: 05-19-2023 Alcohol intake Lifetime non-d danielle (finding) [facility] Start: 11-05-2022 End: 05-19-2023 History of Social function [facility] Childcare Unknown [facility] Start: 1997 Sex Assigned At Not on file P [facility] Start: 11-05-2022 Tobacco use and exposure Smokeless tobacco non-user [facility] Start: 05-26-2023 Alcohol intake Ex-drinker (finding) [facility] Start: 11-05-2022 Alcohol Comment Occasional alcohol u se [facility] Start: 01-29-2023 [facility] History of Present illness Narrative [...] nursing note reviewed. Exam conducted with a tool clerk present. Vitals: Estimated body mass index is [...] of Present illness Narrative 05-19-2023 Hilary Lombardi APRN-CHAMPAGNE MAKER - 05/19/2023 1:00 PM EST Note Date & Type Note Facility 05-19-2023 History of Presen t illness Narrative Images from the original note were not included. [address] [facility] [address] SUBJECTIVE: Patient ID: Luli Jose is a [...] following intervention(s) were applied: encouragement to exercise. Hilary Lombardi APRNRICH 05/19/23 1322 documented in this encounter [facility] Evaluation note 04-22-2021 Note Date & Type Note Facility 04-22-2021 Evaluation note Encounter Date Diagnosis Assessment Notes Apr, Acute vaginitis (ICD-10 - N76.0) [facility] Other Evaluation note Note Date & Type Note Facility Evaluation note Diagnosis Other depression- Primary documented in this encounter [facility] Evaluation note Note Date & Type [...] History asthma Hospitalization History child x 2 [facility] Other Instructions Attachments Note Date & Type Note Facility Instructions The following attachments cannot be sent through Care Everywhere.Depression (Congolese)documented in this encounter [facility] Summary Purpose Family History No Family [...] content) DATE CREATED AUTHOR 03/20/2022 [facility] DATE CREATED AUTHOR AUTHOR'S ORGANIZ ATION 05/14/2023 [facility] DATE CREATED AUTHOR AUTHOR'S ORGANIZ ATION 05/22/2023 [facility] DATE CREATED AUTHOR AUTHOR'S ORGANIZ ATION 07/02/2023 [facility] DATE CREATED AUTHOR AUTHOR'S ORGANIZ ATION 10/11/2023 [facility] EPIC Reason for Visit (unrecogniz ed section and content) Reason Comments Well Women Visit Routine Visit Reason Comments New Patient Care Teams (unrecognized sec tion and content) Hogshead Builder Relationship Specialty Start Date End Date Hilary Lombardi APRN-CNP [address] [place] [address] PCP - General Family Medicine 05/19/23 FOR [...] BE BASED ON THE PRIMARY CLINICAL RECORDS. [employer] provides no warranty or guarantee of the accuracy or completeness of information in this document.
[2023-10-17 18:07] VITALS: PULSE 72; TEMP 36.2
== END 2023-10-17 08:06 | disposition home or self-care (01) ==
LOC: LAB 08:06 → FBCO 15:12
PROVIDERS: Visit Provider Obstetrics & Gynecology
DX: Z39.2 Encounter for routine postpartum follow-up (principal)

== ENCOUNTER 2024-11-06 22:03 | Outpatient (REF) | payer SELFPAY ==
--- OUTSIDE RECORDS SUMMARY | 2024-11-06 22:08 | XMS_ITS | CCD ---
Author Organization [facility] Care Team Providers Care Union Steward Name Role Phone Bobby Knox Unavailable DR DIANDRA ROY Attending Unavailable MANUELA, DR JIM Consulting Unavailable MANUELA, DR JIM Admitting Unavailable LILO, DR LAUREN Primary Care Unavailable Kasrupal, Oralia Dejesus Primary Care Unavailab Ayush Cadena Attending Unavailable Geovany Moran Admitting Unavailab le Geovany Moran Admitting Unavailab le Geovany Moran Attending Unavailab Arpita Ruggieroah Anjelica Primary Care Unavailab le Unavailable Primary Care Provider UnavailOctavio Rene Attending Unavailable ROME, ANNEMARIE Attending Unavailable MAUNELA, DIANDRA Attending Unavailable ROME, ANNEMARIE Attending Unavailable MANUELA, DIANDRA Attending Unavailable ROME, ANNEMARIE Attending Unavailable MANUELA, DIANDRA Attending Unavailable MANUELA, DIANDRA Attending Unavailable ROME, ANNEMARIE Attending Unavailable MANUELA, DIANDRA Attending Unavailable MANUELA, DIANDRA Attending Unavailable MANUELA, DIANDRA Attending Unavailable MANUELA, DIANDRA Attending Unavailable ROME, ANNEMARIE Attending Unavailable MANUELA, DIANDRA Attending Unavailable MANUELA, DIANDRA Attending Unavailable HILARY LOMBARDI Attending Unavailable HILARY LOMBARDI Referring Unavailable SCHHILARY ARIAS Primary Care Unavailable HILARY LOMBARDI Attending Unavailable HILARY LOMBARDI Referring Unavailable SCHHILARY ARIAS Primary Care Unavailable HILARY LOMBARDI Attending Unavailable ORALIA CALVERT Referring Unavailable SCHJUANA, HILARY Primary Care Unavailable SCHHILARY ARIAS Attending Unavailable SCHHILARY ARIAS Referring Unavailable SCHJUANA, HILARY Primary Care Unavailable Schlachter GAME MANAGER-LINK AND LINK KNITTING MACHINE OPERATOR, Hilary Primary Care Provide r Allergies Allergy Classification Reported Allergen(s) Allergy Type Date of Onset Reaction(s) Facility (9 sources) Octacosanol; Translations: [OCTACOSANOL] Propensity to adverse reactions 3 [facility] Work Phone: Medications Current Medications Medication Drug Class(es) Dates Sig (Normalized) Sig (Original) albuterol 0.83 mg/ml inhalation solution (9 sources) beta2-Adrenergic Agonist Start: 02-08-2024 take 3 mL by inhalation every six hours as needed for wheezing albuterol (PROVENTIL,VENTOLIN ) 2.5 mg /3 mL (0.083 %) nebulizer solution Indications: Bronchitis Inhale 3 mL (2.5 mg total) by nebulization every 6 (six) hours as needed for wheezing. 75 mL 12 02/08/2024 Active Start: 02-08-2024 End: 02-08-2024 albuterol (PROVENTIL,VENTOLI N) nebulizer solution 2.5 mg Start: 02-08-2024 End: 02-08-2024 2.5 mg, nebulization, Once, On Tue02/08/24 at 1000, For 1 dose, Implement INPATIENT/ED Bronchodilator Clinical Practice Guidelines? Not Applicable take 2 puff(s) by in halation every six hours as needed for wheezing albuterol (PROVENTIL HFA;VENTOLIN HFA) 90 mcg/actuation inhaler Inhale 2 puffs every 6 (six) hours as needed for wheezing. Active azithromycin 250 mg oral tablet (2 sources) Macrolide Antimicrobial Start: 02-08-2024 End: 02-13-2024 take 1 tablet by mouth in the morning, then take 2 tablets by mouth once daily, then take 1 tablet by mouth once daily azithromycin (ZITHROMAX) 250 mg tablet Take 1 tablet (250 mg total) by mouth in the morning for 5 days. Take 2 tablets the first day, then 1 tablet daily for 4 days.. 6 tablet 02/08/2024 02/13/2024 Active cetirizine hydrochloride 10 mg oral tablet (7 sources) Histamine-1 Receptor Antagonist take 1 tablet by mouth once daily cetirizine (ZyrTEC) 10 MG tablet Take 10 mg by mouth Daily Active ZyrTEC Allergy A ctive citalopram 20 mg oral tablet (6 sources) Serotonin Reuptake Inhibitor Start: 05-26-2023 End: 05-25-2024 take 1 tablet by mouth once daily in the morning citalopram (CeleXA) 20 MG tablet Indications: Anxiety, generalized TAKE 1 TABLET BY MOUTH EVERY DAY IN THE MORNING 30 tablet 11 05/25/2024 Active etonogestrel 68 mg drug implant (2 sources) Progestin Start: 11-28-2023 End: 11-27-2026 etonogestrel-elutin g 68 mg contraceptive implant 1 each magnesium oxide 400 mg oral capsule (3 sources) Start: 04-28-2023 End: 05-28-2023 take 1 capsule by mouth in the morning magnesium oxide 400 MG capsule Indications: Headache in , antepartum Take 1 capsule (400 mg) by mouth in the morning. 30 capsule 3 04/28/2023 05/28/2023 Active predniSONE 10 mg oral tablet (2 sources) Start: 02-08-2024 End: 02-16-2024 take 6 tablets by mouth once daily, then take 1 tablet by mouth once daily at mealtime predniSONE (STERAPRED DS) 10 mg tablet pack Take by mouth daily for 8 days. 6 tabs qd x 3 d then 1 less each day with food 33 tablet 02/08/2024 02/16/2024 Active 27-1 MG tablet (6 sources) Start: 09-07-2023 take 1 tablet by mouth in the morning 27-1 MG tablet Indications: Third trimester (HHS-HCC) , Missed menses Take 1 tablet by mouth in the morning. 30 tablet 11 09/07/2023 Active Start: 09-07-2023 take 1 tablet by jose manuel th in the morning 27-1 MG tablet Indications: Third trimester , Missed menses Take 1 tablet by mouth in the morning. 30 tablet 11 09/07/2023 Active Start: 05-16-2023 take 1 tablet by jose manuel th once daily in the morning 27-1 MG tablet Indications: Missed menses TAKE 1 TABLET BY MOUTH EVERY DAY IN THE MORNING 30 tablet 0 05/16/2023 Active vit no.[id number] ic ( PLUS VITAMIN-MINERAL) 27 mg iron- 1 mg tablet (4 sources) Start: 05-16-2023 vit n o.198-bigm-vjoht ( PLUS VITAMIN-MINERAL) 27 mg iron- 1 mg tablet Take 1 tablet by mouth. 05/16/2023 Active Start: 05-16-2023 vit n o.116-ifhy-ylygm ( PLUS VITAMIN- MINERAL) 27 mg iron- 1 mg tablet Take 1 tablet by mouth. 0 05/16/2023 Active sertraline 100 mg oral tablet (4 sources) Serotonin Reuptake Inhibitor take 1 tablet by mouth in the morning sertraline (ZOLOFT) 100 mg tablet Take 1 tablet (100 mg total) by mouth in the morning. Active Completed/Discontinued Medications Medication Drug Class(es) Dates [...] disorder; Translations: [Generalized anxiety disorder] 05-26-2023 Chronic Chronic obstructive pulmonary disease and bronchiectasis (3 sources) Bronchitis, not specified as acute or chronic; Translations: [Bronchitis] Onset: 02-08-2024 02-08-2024 Episodic Contraceptive and procreative management (2 sources) Subcutaneous contraceptive implant present; Translations: [Encounter for surveillance of implantable subdermal contraceptive] 03-01-2024 Episodic Immunizations and screening for infectious disease (3 sources) Encounter for screening for human papillomavirus (HPV); Translations: [Exposure to sexually transmissible disorder] Onset: 11-03-2021 05-26-2023 Episodic Mood disorders (3 sources) Major depressive disorder, recurrent, moderate; Translations: [Other specified depressive episodes] Onset: 11-05-2022 05-19-2023 Chronic Other female genital disorders (2 sources) Vaginal discharge; Translations: [Other specified noninflammatory disorders of vagina] 05-26-2023 Episodic Other lower respiratory disease (1 source) Shortness of breath; Translations: [Shortness of breath] Onset: 03-27-2024 Episodic Other lower respiratory disease (1 source) Wheezing; Translations: [Wheezing] Onset: 03-27-2024 Episodic Other lower respiratory disease (2 sources) Wheezing; Translations: [Wheezing] Onset: 03-27-2024 03-27-2024 Episodic Other lower respiratory disease (1 source) Cough Onset: 02-08-2024 Episodic Other lower respiratory disease (1 source) Dyspnea; Translations: [Shortness of breath] 03-27-2024 Episodic Other and delivery including normal (2 sources) Second trimester ; Translations: [Encounter for supervision of normal , unspecified, second trimester] 05-20-2023 Episodic Other screening for suspected conditions (not mental disorders or infectious disease) (6 sources) Encounter for screening for malignant neoplasm of cervix; Translations: [Patient encounter status] Onset: 11-02-2021 Episodic Other upper respiratory disease (1 source) Nasal congestion Onset: 02-08-2024 Episodic Other upper respiratory infections (1 source) Sinusitis Onset: 02-08-2024 Chronic Unclassified (1 source) New Patient Onset: 05-19-2023 Past or Other Problems Problem Classification Problem Date Documented Da te Episodic/Chronic Inflammatory diseases of female pelvic organs (1 source) Acute vaginitis Onset: 04-22-2021 Resolved: 04-22-2021 Episodic Mood disorders (2 sources) Mood disorders Onset: 02-13-2024 02-13-2024 Unclassified (4 sources) Onset: 05-19-2023 Resolved: 03-27-2024 05-19-2023 Results Test Name Value Interpretation Reference Range Facility Insertion/Removal of Contrac eptive Capsuleon 03-01-2024 So Garcia LPN 03/11/2024 2:03 PM Insertion/Removal of Contraceptive Capsule Date/Time: 03/01/2024 12:00 PM Performed by: Diandra Roy DO Authorized by: Diandra Roy DO Consent: Consent obtained: Written Consent given by: Patient Patient questions answered: yes Patient agrees, verbalizes understanding, and wants to proceed: yes Educational handouts given: no Instructions and paperwork completed: no Indication: Indication: Presence of non-biodegradable drug delivery implant Pre-procedure: Pre-procedure timeout performed: yes Prepped with: alcohol 70% and povidone-iodine Local anesthetic: Lidocaine without epinephrine The site was cleaned and prepped in a sterile fashion: yes Procedure: Procedure: Removal Small stab incision was made in arm: yes Left/right: Left Preloaded contraceptive capsule trocar was placed subdermally: no Visualization of implant was obtained: no Contraceptive capsule was inserted and trocar removed: no Visualization of notch in stylet and palpation of device: no Palpation confirms placement by provider and patient: no Site was closed with steri-strips and pressure bandage applied: no Comments: REMOVAL ONLY [facility] Consenton 07-01-2023 Consent [id number]# 1.00TIFF Normal [facility] Registrationon 07-01-2023 Registration [id number]# 1.00TIFF [facility] [place] [facility] IGP,APTIMA HPV,AGE GDLNon AGE GDLN ACOG TESTING Note . [facility] Comment on above: TESTS RESULT FLAG UN ITS REF RANGE LAB Clinician Provided Cytology Information Source.............Endocervix No. of containers..01 ThinPrep Vial Age Algo ACOG Alyssa... -16 05 FLAG LEGEND: L-Low Normal,H-High Normal,LL-Alert Low,HH-Alert High <-Panic Low,>-Panic High,A-Abnormal,AA-Critical Abnormal Performed at: 01 =G [facility] [address] [place] [address] Karrie Jimenez MD, IGP, RFX APTIMA HPV ASCU Note . [facility] Comment on above: TESTS RESULT FLAG UN ITS REF RANGE LAB DIAGNOSIS: 02 NEGATIVE FOR INTRAEPITHELIAL LESION OR MALIGNANCY. Specimen adequacy: 02 Satisfactory for evaluation. No endocervical component is identified. Performed by: 02 Bk Hays, Tool And Gauge Inspector ([facility]) . 02 Note: Note 02 The [...] <-Panic Low,>-Panic High,A-Abnormal,AA-Critical Abnormal Performed at: 02 WB [facility] [address], [place] [address] Karrie Jimenez MD, Performed at: =G - [address] [id number] Trouble Locater: Karrie Jimenez MD, Phone: [phone] Performed at: [address] [id number] Trouble Locater: Karrie Jimenez MD, Phone: [phone] [facility] Healthcar e URETHRITIS/DISCHARGE PLUS VA GINITIS (HTRX)on 05-27-2023 ATOPOBIUM VAGINAE 16.087 Abnormal [facility] ATOPOBIUM VAGINAE Detected Abnormal [facility] BVAB 2,3 (BACTERIAL VAGINOSIS ASSOCIATED BACTERIA 2, 3); MOBILUNCUS SPP 20.57 Abnormal [facility] BVAB 2,3 (BACTERIAL VAGINOSIS ASSOCIATED BACTERIA 2, 3); MOBILUNCUS SPP Detected Abnormal [facility] Healthcare LYN ALBICANS, PARAPSILOSIS, TROPICALIS 0 [facility] LYN ALBICANS, PARAPSILOSIS, TROPICALIS Not detected [facility] LYN GLABRATA 0 [facility] LYN GLABRATA Not detected [facility] LYN KRUSEI 0 [facility] LYN KRUSEI Not detected [facility] CHLAMYDIA TRACHOMATIS 0 [facility] CHLAMYDIA TRACHOMATIS Not detected [facility] DFR (A1, A5), SUL (1,2) 0 PPM [facility] DFR (A1, A5), SUL (1,2) Not detected [facility] ERMB, C; MEFA 24.689 Abnormal PPM [facility] Health care ERMB, C; MEFA Detected Abnormal [facility] Health care GARDNERELLA VAGINALIS 18.724 Abnormal [facility] Healthcare GARDNERELLA VAGINALIS Detected Abnormal [facility] Healthcare Interpretation and review of laboratory results Abnormal [facility] MEGASPHAERA (TYPES 1, 2) 0 [facility] MEGASPHAERA (TYPES 1, 2) Not detected [facility] MYCOPLASMA GENITALIUM 0 [facility] MYCOPLASMA GENITALIUM Not detected [facility] NEISSERIA GONORRHOEAE 0 [facility] NEISSERIA GONORRHOEAE Not detected [facility] Healthcare TET B, TET M 23.465 Abnormal PPM [facility] are TET B, TET M Detected Abnormal [facility] are TRICHOMONAS VAGINALIS 0 [facility] TRICHOMONAS VAGINALIS Not detected [facility] Urinalysis macro (dipstick) panel (U)on 05-26-2023 Bilirubin, UA Negative Negative - 4(70) +++ mg/dL [facility] Blood, UA Negative Negative - 50 Xander/mcL [facility] Clarity, UA Clear [facility] Color, UA Yellow [facility] Glucose, UA Negative Negative - 1999(110) ++++ mg/dL [facility] Interpretation and review of laboratory results Abnormal [facility] Ketones, UA Negative Negative - 160(16) ++++ mg/dL [facility] Leukocytes, UA Negative Negative - 500+++ Vince/mcL [facility] Nitrite, UA Negative Negative - Positive [facility] pH, UA 5.5 5 - 9 [facility] Healthcar e Protein, UA Positive Negative - 1999(20) ++++ mg/dL [facility] Spec Grav, UA 1.020 1 - 1.03 [facility] Urobilinogen, UA 1.0 0.2 - 12 mg/dL [facility] Lip[facility] 11-05-2022 Cholesterol [Mass/Vol] 152 mg/dL Normal 140-200 [facility] Comment on above: Result Comment: Chol less than 200 mg/dl low risk Chol 201-239 mg/dl borderline risk Chol 240 mg/dl and greater high risk Performed By: #### L IPID, TSH3 wRFLX, [id number] #### [facility] [address] Cholesterol in HDL [Mass/Vol] 46 mg/dL Normal 23-92 [facility] Comment on above: Result Comment: HDL CHOL ATP-III CLASSIFICATION Cardiovascular Risk HDL > or equal to 60 mg/dL LOW HDL < 40 mg/dL HIGH Performed By: #### L IPID, TSH3 wRFLX, [id number] #### [facility] [address] [place] [address] [place] Cholesterol.total/Ch olesterol in HDL [Mass ratio] 3.3 {ratio} Normal <5.0 [facility] Comment on above: Performed By: #### L IPID, TSH3 wRFLX, [id number] #### [facility] [address] [place] [id number] [place] LDL Cholesterol,Calculat ed 85 mg/dL Normal 0-100 [facility] Comment on above: Result Comment: LDL ATP III CLASSIFICATION LDL less than 100 mg/dL Optimal LDL 100-129 mg/dL Near or above optimal LDL 130-159 mg/dL Borderline high LDL 160-189 mg/dL High LDL greater than 189 mg/dL Very high Performed By: #### L IPID, TSH3 wRFLX, [id number] #### [facility] [address] Triglyceride w/Reflex 106 mg/dL Normal 0-149 [facility] Comment on above: Result Comment: TRIG ATP III CLASSIFICATION TRIG less than 150 mg/dL Normal TRIG 150-199 mg/dL Borderline high TRIG 200-500 mg/dL High TRIG greater than 500 mg/dL Very high Standard traceable to the Center for Disease Conrtrol and Prevention (CDC) test method. Performed By: #### L IPID, TSH3 wRFLX, [id number] #### [facility] [address] VLDL CHOLESTEROL 21 mg/dL Normal [facility] Comment on above: Performed By: #### L IPID, TSH3 wRFLX, [id number] #### [facility] [address] Thyroid Stim Hormone w/Rflxo n 11-05-2022 Thyroid Stim Hormone w/Rflx 1.37 u[iU]/mL Normal 0.45-5.33 [facility] Comment on above: Performed By: #### L IPID, TSH3 wRFLX, [id number] #### [facility] [address] Vitamin D 25 Hydroxy Totalon 11-05-2022 Vitamin D 25 Hydroxy Total 31.4 ng/mL Normal 30-100 [facility] Comment on above: Result Comment: ALEXANDRA MIN D STATUS 25(OH)VITAMIN D RANGE (ng/mL) Deficient <20 Insufficient 20 to <30 Sufficient 30 to 100 Reference: Gerry FAITH,Levy KEMP, Gonzalo DINH, et al. Evaluation,treatment, and prevention of vitamin D deficiency; an Endocrine Society clinical practice guideline. JCEM. 2010; 96(7):1911-30. PERFORMED BY: [place] [id number] PATHOLOGIST UNDERCOATER MERISSA CONTI M.D. Performed By: #### L IPID, TSH3 wRFLX, [id number] #### [address] PAP ACOG PANEL 2: 21 to 29on 11-05-2021 . . Normal [facility] Comment on above: Performed By: #### [id number] #### [facility] [address] [place] [address] Dr. Jeremiah Roberts Age Gdln ACOG Testing [facility] Comment on above: Performed By: #### [id number] #### [facility] [address] [place] [address] Dr. Jeremiah Roberts DIAGNOSIS: Comment [facility] Comment on above: Result Comment: NEGA TIVE FOR INTRAEPITHELIAL LESION OR MALIGNANCY. Performed By: #### [id number] #### [facility] [address] [place] [address] Dr. Jeremiah Roberts Methodology: Comment [facility] Comment on above: Result Comment: This liquid based ThinPrep(R) pap test was screened with the use of an image guided system. Performed By: #### [id number] #### [facility] [address] [place] [address] Dr. Jeremiah Roberts Note: Comment [facility] Comment on above: Result Comment: The Pap smear is a screening test designed to aid in the detection of premalignant and malignant conditions of the uterine cervix. It is not a diagnostic procedure and should not be used as the sole means of detecting cervical cancer. Both false-positive and false-negative reports do occur. . Performed By: #### [id number] #### [facility] [address] [place] [address] Dr. Jeremiah Roberts Performed by: Comment Normal [facility] Comment on above: Result Comment: Pancho Billy, Tool And Gauge Inspector (ASCP) Performed By: #### [id number] #### [facility] [address] [place], [place] [address] Dr. Jeremiah Roberts Reflex Criteria: Comment Normal [facility] Comment on above: Result Comment: The HPV DNA reflex criteria were not met with this specimen result therefore, no HPV testing was performed. . Performed By: #### [id number] #### [facility] [address] [place], [place] [address] Dr. Jeremiah Roberts Specimen adequacy: Comment Normal [facility] Comment on above: Result Comment: Sati sfactory for evaluation. Endocervical and/or squamous metaplastic cells (endocervical component) are present. Performed By: #### 4 [id number] #### [facility] [address] [place] [address] [address] Jeremiah Roberts Vital Signs Date Time Vital Sign Value Performing Clinician Facility 03-27-2024 11:02-0500 Body mass index (BMI) [Ratio] 34.39 kg/m2 Hilary Lombardi APRN-LINK AND LINK KNITTING MACHINE OPERATOR Work Phone: [facility] 03-27-2024 11:02-0500 Body weight 82.56 kg Hilary Lombardi GAME MANAGER-LINK AND LINK KNITTING MACHINE OPERATOR Work Phone: [facility] 03-27-2024 11:02-0500 Diastolic blood pressure 70 mm[Hg] Hilary Lombardi GAME MANAGER-LINK AND LINK KNITTING MACHINE OPERATOR Work Phone: [facility] 03-27-2024 11:02-0500 Heart rate 73 /min Hilary Lombardi GAME MANAGER-LINK AND LINK KNITTING MACHINE OPERATOR Work Phone: [facility] 03-27-2024 11:02-0500 Respiratory rate 16 /min Hilary Lombardi GAME MANAGER-LINK AND LINK KNITTING MACHINE OPERATOR Work Phone: [facility] 03-27-2024 11:02-0500 SaO2% (BldA) [Mass fraction] 97 % Hilary Lombardi GAME MANAGER-LINK AND LINK KNITTING MACHINE OPERATOR Work Phone: [facility] 03-27-2024 11:02-0500 Systolic blood pressure 120 mm[Hg] Hilary Lombardi GAME MANAGER-LINK AND LINK KNITTING MACHINE OPERATOR Work Phone: [facility] 03-01-2024 11:52-0500 Body mass index (BMI) [Ratio] 32.45 kg/m2 Diandra Manuela DO Work Phone: [facility] 03-01-2024 11:52-0500 Body weight 80.47 kg Diandra Manuela DO Work Phone: [facility] 03-01-2024 11:52-0500 Diastolic blood pressure 70 mm[Hg] Diandra Manuela DO Work Phone: [facility] 03-01-2024 11:52-0500 Systolic blood pressure 120 mm[Hg] Diandra Manuela DO Work Phone: [facility] 02-13-2024 14:34-0400 Body mass index (BMI) [Ratio] 34.2 kg/m2 Hilary Hardikchter GAME MANAGER-LINK AND LINK KNITTING MACHINE OPERATOR Work Phone: [facility] 02-13-2024 14:34-0400 Body weight 82.1 kg Hilary Vadimer GAME MANAGER-LINK AND LINK KNITTING MACHINE OPERATOR Work Phone: [facility] 02-13-2024 14:34-0400 Diastolic blood pressure 70 mm[Hg] Hilary Schshermanchter GAME MANAGER-LINK AND LINK KNITTING MACHINE OPERATOR Work Phone: [facility] 02-13-2024 14:34-0400 Heart rate 96 /min Hilary Dyechter GAME MANAGER-LINK AND LINK KNITTING MACHINE OPERATOR Work Phone: [facility] 02-13-2024 14:34-0400 Respiratory rate 16 /min Hilary Hardikchter GAME MANAGER-LINK AND LINK KNITTING MACHINE OPERATOR Work Phone: [facility] 02-13-2024 14:34-0400 Systolic blood pressure 120 mm[Hg] Hilary Dyechter GAME MANAGER-LINK AND LINK KNITTING MACHINE OPERATOR Work Phone: [facility] 02-08-2024 09:41-0400 Body mass index (BMI) [Ratio] 33.07 kg/m2 Hilary Hardikchter GAME MANAGER-LINK AND LINK KNITTING MACHINE OPERATOR Work Phone: [facility] 02-08-2024 09:41-0400 Body temperature 98.4 [degF] Hilary Pikeshermanamita GAME MANAGER-LINK AND LINK KNITTING MACHINE OPERATOR Work Phone: [facility] 02-08-2024 09:41-0400 Body weight 79.38 kg Hilary Pikeshermanamita GAME MANAGER-LINK AND LINK KNITTING MACHINE OPERATOR Work Phone: [facility] 02-08-2024 09:41-0400 Diastolic blood pressure 64 mm[Hg] Hilary Pikeshermanmendyalen GAME MANAGER-LINK AND LINK KNITTING MACHINE OPERATOR Work Phone: [facility] 02-08-2024 09:41-0400 Heart rate 82 /min Hilary Pikeshermanamita GAME MANAGER-LINK AND LINK KNITTING MACHINE OPERATOR Work Phone: [facility] 02-08-2024 09:41-0400 Respiratory rate 16 /min Hilary Pikeshermanamita GAME MANAGER-LINK AND LINK KNITTING MACHINE OPERATOR Work Phone: [facility] 02-08-2024 09:41-0400 SaO2% (BldA) [Mass fraction] 95 % Hilary Lombardi GAME MANAGER-LINK AND LINK KNITTING MACHINE OPERATOR Work Phone: [facility] 02-08-2024 09:41-0400 Systolic blood pressure 120 mm[Hg] Hilary Glendyjuana GAME MANAGER-LINK AND LINK KNITTING MACHINE OPERATOR Work Phone: [facility] 05-26-2023 15:46-0500 Body mass index (BMI) [Ratio] 30.54 kg/m2 Annemarie NOGUERA Work Phone: [facility] 05-26-2023 15:46-0500 Body weight 75.75 kg Annemarie NOGUERA Work Phone: [facility] 05-26-2023 15:46-0500 Diastolic blood pressure 64 mm[Hg] Annemarie NOGUERA Work Phone: [facility] 05-26-2023 15:46-0500 Systolic blood pressure 106 mm[Hg] Annemarie NOGUERA Work Phone: [facility] 05-19-2023 13:00-0500 Body mass index (BMI) [Ratio] 31.55 kg/m2 Hilary Pikeshermanamita GAME MANAGER-LINK AND LINK KNITTING MACHINE OPERATOR [facility] 05-19-2023 13:00-0500 Body weight 75.75 kg Hilary Lombardi GAME MANAGER-LINK AND LINK KNITTING MACHINE OPERATOR Work Phone: [facility] 05-19-2023 13:00-0500 Diastolic blood pressure 60 mm[Hg] Hilary Pikeshermanamita GAME MANAGER-LINK AND LINK KNITTING MACHINE OPERATOR Work Phone: [facility] 05-19-2023 13:00-0500 Heart rate 96 /min Hilary Lombardi GAME MANAGER-LINK AND LINK KNITTING MACHINE OPERATOR [facility] 05-19-2023 13:00-0500 Respiratory rate 16 /min Hilary Lombardi GAME MANAGER-LINK AND LINK KNITTING MACHINE OPERATOR Work Phone: [facility] Mpax 05-19-2023 13:00-0500 SaO2% (BldA) [Mass fraction] 98 % Hilary Lombardi APRN-LINK AND LINK KNITTING MACHINE OPERATOR [facility] 13:00-0500 Systolic blood pressure 110 mm[Hg] Hilary [employer] LINDSEYN-LINK AND LINK KNITTING MACHINE OPERATOR Work Phone: [facility] Encounters Encounter Date Encounter Type Care Provider Facility Start: 11-06-2024 End: 11-06-2024 Bamboo flowsheet Annemarie NOGUERA Work Phone: [facility] Start: 11-06-2024 End: 11-06-2024 Bamboo flowsheet Annemarie NOGUERA Work Phone: [facility] Start: 03-27-2024 End: 03-27-2024 Office outpatient visit 15 minutes Hilary Lombardi GAME MANAGER-LINK AND LINK KNITTING MACHINE OPERATOR Work Phone: [facility] Comment on above: Shortness of breath (Primary Dx); Wheezing Start: 03-27-2024 End: 03-27-2024 ambulatory [facility] Start: 03-01-2024 End: 03-01-2024 ambulatory DIANDRA MANUELA Not Available Start: 03-01-2024 End: 03-01-2024 Patient encounter procedure Diandra Manuela DO Work Phone: [facility] Comment on above: Nexplanon removal; Encounter for removal of etonogestrel implant Start: 02-13-2024 End: 02-13-2024 Office outpatient visit 15 minutes Hilary Lombardi GAME MANAGER-LINK AND LINK KNITTING MACHINE OPERATOR Work Phone: [facility] Comment on above: Bronchitis (Primary Dx) Start: 02-13-2024 End: 02-13-2024 ambulatory [facility] Start: 02-08-2024 End: 02-08-2024 ambulatory [facility] Start: 02-08-2024 End: 02-08-2024 Office outpatient visit 25 minutes Hilary Lombardi GAME MANAGER-LINK AND LINK KNITTING MACHINE OPERATOR Work Phone: [facility] Comment on above: Bronchitis (Primary Dx) Start: 11-28-2023 End: 11-28-2023 ambulatory DIANDRA MANUELA Not Available Start: 11-21-2023 End: 11-21-2023 ambulatory ANNEMARIE ROME Not Available Start: 10-10-2023 End: 10-10-2023 ambulatory DIANDRA MANUELA Not Available Start: 10-03-2023 End: 10-03-2023 ambulatory DIANDRA MANUELA Not Available Start: 09-27-2023 End: 09-27-2023 ambulatory DIANDRA MANUELA Not Available Start: 09-21-2023 End: 09-21-2023 ambulatory DIANDRA MANUELA Not Available Start: 09-07-2023 End: 09-07-2023 ambulatory ANNEMARIE ROME Not Available Start: 08-24-2023 End: 08-24-2023 ambulatory DIANDRA MANUELA Not Available Start: 08-10-2023 End: 08-10-2023 ambulatory DIANDRA MANUELA Not Available Start: 07-26-2023 End: 07-26-2023 ambulatory ANNEMARIE ROME Not Available Start: 07-01-2023 End: 07-02-2023 ambulatory [facility] Facility:[facility] Start: 06-27-2023 End: 06-27-2023 ambulatory DIANDRA MANUELA Not Available Start: 05-26-2023 End: 05-26-2023 Patient encounter procedure Annemarie Rome PA Work Phone: [facility] Work Phone: Start: 05-26-2023 End: 05-26-2023 Periodic preventive med est patient 18-39 yrs Annemarie NOGUERA Work Phone: [facility] Comment on above: Well woman exam with routine gynecological exam; Second trimester ; Screening, , for anatomic survey; Vaginal discharge; STD exposure; Anxiety, generalized ([facility]) Start: 05-26-2023 End: 05-26-2023 ambulatory ANNEMARIE PETER Not Available Start: 05-26-2023 Clinisync Result Encounter Annemarie NOGUERA Work Phone: [facility] Unsolicited Start: 05-26-2023 External Result Encounter Annemarie NOGUERA Work Phone: [facility] Unsolicited Start: 05-26-2023 External Result Encounter Annemarie [place] PA Work Phone: [facility] Unsolicited Start: 05-19-2023 End: 05-19-2023 Office outpatient new 20 minutes [facility] GAME MANAGER-LINK AND LINK KNITTING MACHINE OPERATOR Work Phone: [facility] Comment on above: Other depression (Pr imary Dx) Start: 05-19-2023 End: 05-19-2023 ambulatory [facility] Start: 04-28-2023 End: 04-28-2023 ambulatory DIANDRA MANUELA Not Available Start: 04-14-2023 End: 04-14-2023 ambulatory ANNEMARIE PETER Not Available Start: 03-31-2023 End: 03-31-2023 ambulatory ANNEMARIE PETER Not Available Start: 02-19-2023 ambulatory Geovany Antoine acility:[facility] Start: 11-05-2022 End: 11-08-2022 Evaluation and management of inpatient Oralia Calvert Facility:[facility] Start: 11-02-2021 End: 11-02-[address] DIANDRA ROY Facility: Start: 04-22-2021 End: 04-22-2021 ambulatory Bobby Knox Other [employer] Other Start: 04-22-2021 Telephone encounter Bobby Antoine [facility] [place] Procedures Date Procedure Procedure Detail Performing Clinician Start: 03-01-2024 TUMBLER MACHINE OPERATOR HELPER INSERTION/REMOVA L OF CONTRACEPTIVE CAPSULE Diandra Roy DO Work Phone: Start: 02-13-2024 Adult depression scr eening assessment Hilary Lombardi GAME MANAGER-LINK AND LINK KNITTING MACHINE OPERATOR Work Phone: Start: 05-26-2023 URETHRITIS/DISCHARGE PLUS VAGINITIS (HTRX) Annemarie NOGUERA Work Phone: Start: 05-26-2023 IGP,APTIMA HPV,AGE GDLN Annemarie NOGUERA Work Phone: Start: 05-26-2023 Urnls dip stick/tabl et rgnt non-auto w/o micrscp Annemarie NOGUERA Work Phone: Start: 05-26-2023 Microscopic observat ion [Identifier] in Cervix by Cyto stain Hilary Lombardi GAME MANAGER-LINK AND LINK KNITTING MACHINE OPERATOR Work Phone: Plan of Treatment Date Care Activity Detail Author Start: 04-22-2030 DTaP,Tdap and Td Vaccines (8 - Td or Tdap) DTaP,Tdap and Td Vaccines (8 - Td or Tdap) [facility] Start: 05-26-2026 Screening for malign ant neoplasm of cervix Pap Smear [facility] Start: 02-12-2025 Adult BMI Screening Adult BMI Screen ing [facility] Start: 02-12-2025 Depression Screening Depression Scre ening [facility] Start: 02-12-2025 Tobacco Screening Tobacco Screening [facility] Start: 02-07-2025 Adult BMI Screening Adult BMI Screen ing [facility] Start: 02-07-2025 Tobacco Screening Tobacco Screening [facility] Start: 12-17-2024 Influenza vaccination Influenza Vacc ine (#1) [facility] Start: 06-05-2024 End: 06-05-2024 Patient encounter procedure 06/05/2024 3:00 PM EST Office Visit [facility] [address] [place] [id number] Diandra Roy DO [address] [place] [address] [facility] Start: 05-19-2024 Adult BMI Follow Up Plan Adult BMI F ollow Up Plan [facility] Start: 05-19-2024 Adult BMI Screening Adult BMI Screen ing [facility] Start: 05-19-2024 Tobacco Screening Tobacco Screening [facility] Start: 03-27-2024 End: 03-27-2025 XR Chest PA and Lateral X-ray chest 2 views Imaging Routine Shortness of breath Wheezing Expected: 03/27/2024, Expires: 03/27/2025 [facility] Comment on above: Expected: 03/27/2024 , Expires: 03/27/2025 Start: 02-13-2024 End: 02-13-2024 Patient encounter procedure 02/13/2024 2:45 PM EDT Office Visit [facility] [address] [place] [id number] Hilary Lombardi, DEON-LINK AND LINK KNITTING MACHINE OPERATOR [address] [place] [address] [facility] Start: 12-18-2023 COVID-19 Vaccine ( season) COVID-19 Vaccine ( season) [facility] Start: 12-18-2023 COVID-19 Vaccine ( season) COVID-19 Vaccine ( season) [facility] Start: 12-18-2023 Influenza vaccination [facility] Start: 10-26-2023 End: 10-26-2023 Patient encounter procedure 10/26/2023 1:30 PM EDT Office Visit [facility] [address] [place] [id number] Hilary Lombardi, GAME MANAGER-LINK AND LINK KNITTING MACHINE OPERATOR [address] [place] [address] [facility] Start: 06-27-2023 End: 06-27-2023 Patient encounter procedure 06/27/2023 2:10 PM EDT Routine [facility] [address] [place] [address] Diandra Roy, [address] [place], [place] [id number] [facility] Start: 06-07-2023 End: 06-07-2023 Professional / ancillary services management 06/07/2023 1:00 PM EST Ancillary Procedure [facility] [address] [place] [address] [facility] Start: 05-26-2023 End: 08-24-2023 Alpha fetoprotein, maternal Alpha fetoprotein, maternal Lab Routine Second trimester Expected: 05/26/2023 (Approximate), Expires: 08/24/2023 [facility] Comment on above: Expected: 05/26/2023 (Approximate), Expires: 08/24/2023 Start: 05-26-2023 End: 05-26-2024 US for US OB ANATOMY SINGLE W US OB CERVICAL LENGTH Imaging Routine Screening, , for anatomic survey Expected: 05/26/2023 (Approximate), Expires: 05/26/2024 [facility] Comment on above: Expected: 05/26/2023 (Approximate), Expires: 05/26/2024 Start: 12-17-2022 COVID-19 Vaccine ( season) COVID-19 Vaccine ( season) [facility] Start: 12-17-2022 Influenza vaccination [facility] Start: 2018 Screening for malign ant neoplasm of cervix Pap Smear [facility] Start: 2009 Depression Screening Depression Scre ening [facility] CHLAMYDIA TRACHOMATI S (GENITO/STI) CHLAMYDIA TRACHOMATIS (GENITO/STI) Lab Routine STD exposure Ordered: 05/26/2023 [facility] Comment on above: Ordered: 05/26/2023 Cytology Cervical or vaginal smear or scraping study Pap Smear Pathology and Cytology Routine Well woman exam with routine gynecological exam Ordered: 05/26/2023 [facility] Work Phone: Comment on above: Ordered: 05/26/2023 Neisseria gonorrhoea e DNA [Presence] in Unspecified specimen by UNA with probe detection Neisseria gonorrhea DNA probe, direct Lab Routine STD exposure Ordered: 05/26/2023 [facility] Comment on above: Ordered: 05/26/2023 End: 03-27-2025 Pulmonary function test Complete PFT w/ BD (Spirometry (Flow Volume Loop) pre/post short acting bronchodilator w/ DLCO (diffusion study) and Lung Volume) Pulmonary function test Complete PFT w/ BD (Spirometry (Flow Volume Loop) pre/post short acting bronchodilator w/ DLCO (diffusion study) and Lung Volume) PFT Routine Shortness of breath Wheezing 1 Occurrences starting 03/27/2024 until 03/27/2025 [facility] Work Phone: Comment on above: 1 Occurrences starti ng 03/27/2024 until 03/27/2025 Removal non-biodegradable drug delivery implant Remove drug implant device Procedures Routine Encounter for removal of etonogestrel implant Ordered: 03/01/2024 [facility] Work Phone: Comment on above: Ordered: 03/01/2024 SURESWAB(R) ADVANCED VAGINITIS PLUS, TMA SURESWAB(R) ADVANCED VAGINITIS PLUS, TMA Pathology and Cytology Routine Vaginal discharge Ordered: 05/26/2023 [facility] Comment on above: Ordered: 05/26/2023 Immunizations Immunization Date Immunization Notes Care Provider Abelardo landaverde 02-09-2022 influenza virus vaccine, unspecified formulation Hilary Lombardi APRN-LINK AND LINK KNITTING MACHINE OPERATOR Work Phone: [facility] 03-05-2021 COVID-19 Vaccine Moderna - Documentation Purposes Only Bobby Knox Other [facility] Other 04-22-2020 influenza, seasonal, injectable, preservative free Bobby Knox Other [facility] Other 04-22-2020 tetanus toxoid, reduced diphtheria toxoid, and acellular pertussis vaccine, adsorbed Bobby Knox Other [employer] Other Payers Date Payer Category Payer Private Health Insurance [facility] [id number] 2022 Self-pay 2022 Medicaid [id number] 2022 Medicaid O [employer] [id number] 2022 Unknown [id number] 2021 Unknown BCBS BCBS xxxxxx [id number] 2021-Present [phone] [address] [place] [address] [id number]. [id number] 1997 Unknown [id number] 2.16.840.1.485406.3.579.2. 593 1997 Unknown [id number] 2.16.840.1.168761.3.579.2. 9 1997 Unknown [id number] 2.16.840.1.048230.3.579.2. 1258 1997 Unknown [id number] 2.16.840.1.836031.3.579.2. 1258 1997 Unknown [id number] 2.16.840.1.852259.3.579.2. 9 1997 Unknown [id number] 2.16.840.1.269417.3.579.2. 1258 1997 Unknown [id number] 2.16.840.1.456902.3.579.2. 9 1997 Unknown [id number] 2.16.840.1.863849.3.579.2. 1258 1997 Unknown [id number] 2.16.840.1.953463.3.579.2. 9 1997 Unknown [id number] 2.16.840.1.769255.3.579.2. 9 1997 Unknown [id number] 2.16.840.1.624472.3.579.2. 9 1997 Unknown [id number] 2.16.840.1.475908.3.579.2. 9 1997 Unknown [id number] 2.16.840.1.796390.3.579.2. 1258 1997 Unknown [id number] 2.16.840.1.259154.3.579.2. 9 1997 Unknown [id number] 2.16.840.1.293547.3.579.2. 1258 1997 Unknown [id number] 2.16.840.1.592386.3.579.2. 1259 1997 Unknown [id number] 2.16.840.1.729169.3.579.2. 1259 1997 Unknown [id number] 2.16.840.1.028873.3.579.2. 1286 1997 Unknown [id number] 2.16.840.1.558293.3.579.2. 1286 1997 Unknown [id number] 2.16.840.1.273053.3.579.2. 1286 1997 Unknown [id number] 2.16.840.1.772673.3.579.2. 1286 1959 Unknown [id number] 2.16.840.1.876790.19 1959 Unknown [id number] Unknown [id number] 2.16.840.1.251423.3.579.2. 531 Unknown [id number] 2.16.840.1.510119.3.579.2. 531 Social History Date Type Detail Facility Start: 11-05-2022 End: 03-31-2023 [facility] Start: 10-28-2016 End: 11-05-2022 Tobacco smoking status KYIS Never smoked tobacco [facility] Start: 11-05-2022 Tobacco use and exposure Smokeless tobacco non-user [facility] Start: 05-26-2023 End: 03-01-2024 Alcohol intake Ex-drinker (finding) [facility] Start: 11-05-2022 End: 03-31-2023 History of Social function [facility] Start: 11-05-2022 Alcohol Comment Occasional alcohol u se [facility] Start: 01-29-2023 [facility] Start: 1995 Sex Assigned At Not on file P [facility] Start: 05-19-2023 End: 03-27-2024 Alcohol intake Lifetime non-drinker (finding) [facility] Start: 11-21-2014 Sex Female (finding) [facility] Clinical Notes 04-22-2021 to 03-27-2024 Hilary Lombardi, DEON-LINK AND LINK KNITTING MACHINE OPERATOR - 03/27/2024 11:00 AM Liliane GarciaSKYLER - 03/01/2024 11:30 AM Nico Lombardi, DEON-LINK AND LINK KNITTING MACHINE OPERATOR - 02/13/2024 2:45 PM POORNIMA Ch - 05/26/2023 3:30 PM EST Note Date & Type Note Facility 03-27-2024 History of Present illness Narrative Images from the original note were not included. [id number] [facility] [place] [address] SUBJECTIVE: Patient ID: Anne Jeronimo is a 28 y.o. female. Patient presents to the office with complaints of intermittent wheezing since having bronchitis. She will have to use rescue inhaler twice a day. Denies any symptoms now but did use inhaler earlier today. Wheezing Pertinent negatives include no abdominal pain, chest pain, coughing, diarrhea, ear pain, fever, neck pain, rash, shortness of breath, sore throat or vomiting. The following portions of the patient's history [...] photophobia, pain, discharge and visual disturbance. Respiratory: Positive for wheezing. Negative for cough and shortness of breath. [...] patient is not nervous/anxious. PHYSICAL EXAMINATION: Vitals: 03/27/24 1102 BP: 120/70 Pulse: 73 Resp: 16 SpO2: 97% Weight: 82.6 kg (182 lb) Physical Exam Constitutional: Appearance: She is [...] normal. ASSESSMENT/PLAN: Anne was seen today for wheezing. Diagnoses and all orders for this visit: Shortness of breath - Pulmonary function test Complete PFT w/ BD (Spirometry (Flow Volume Loop) pre/post short acting bronchodilator w/ DLCO (diffusion study) and Lung Volume); Future - albuterol (PROVENTIL,VENTOLIN) nebulizer solution 2.5 mg - X-ray chest 2 views; Future Wheezing - Pulmonary function test Complete PFT w/ BD (Spirometry (Flow Volume Loop) pre/post short acting bronchodilator w/ DLCO (diffusion study) and Lung Volume); Future - albuterol (PROVENTIL,VENTOLIN) nebulizer solution 2.5 mg - X-ray chest 2 views; Future Follow-up: Chest x-ray PFT Will call with results May need daily inhaler Patient noted to have elevated BMI and the following intervention(s) were applied: encouragement to exercise. COURTNEY Chase 03/27/24 1117 [facility] History of Present illness Narrative Associated Order(s): Insertion/Removal of Contraceptive Capsule Post-Procedure Diagnose(s): Nexplanon removal; Encounter for removal of etonogestrel implant Reason for Appointment: Patient ID: Anne Jeronimo is a 28 y.o. female who presents for Contraception (Nexplanon removal) Patient presents today for a Nexplanon Removal appointment. MEDICATIONS Current Outpatient Medications Medication Instructions cetirizine (ZYRTEC) 10 mg, Daily citalopram (CELEXA) 20 mg, Oral, Daily 27-1 MG tablet 1 tablet, Oral, Every morning ALLERGIES No Known Allergies SURGICAL HISTORY Past Surgical History: Procedure Laterality Date OTHER SURGICAL HISTORY 05/2018 Nexplanon implant on left arm VAGINAL DELIVERY 201505-25-18 REVIEW OF SYSTEMS Review of Systems: Review of Systems All other systems reviewed and are negative. OBJECTIVE Objective: Physical Exam Constitutional: Appearance: Normal appearance. She is well-developed. Cardiovascular: Rate and Rhythm: Normal rate and [...] nursing note reviewed. Exam conducted with a spike maker present. Vitals: Estimated body mass index is 32.45 kg/m as calculated from the following: Height as of 24: 5' 2 . Weight as of this encounter: 177 lb 6.4 oz. BP: 120/70 No LMP recorded. ASSESSMENT & PLAN Assessment/Plan Encounter Diagnosis: ICD-10-CM 1. Nexplanon removal Z30.46 2. Encounter for removal of etonogestrel implant Z30.46 Remove drug implant device Insertion/Removal of Contraceptive Capsule Date/Time: 03/01/2024 12:00 PM Performed by: Diandra Roy DO Authorized by: Diandra Roy DO Consent: Consent obtained: Written Consent given by: Patient Patient questions answered: yes Patient agrees, verbalizes understanding, and wants to proceed: yes Educational handouts given: no Instructions and paperwork completed: no Indication: Indication: Presence of non-biodegradable drug delivery implant Pre-procedure: Pre-procedure timeout performed: yes Prepped with: alcohol 70% and povidone-iodine Local anesthetic: Lidocaine without epinephrine The site was cleaned and prepped in a sterile fashion: yes Procedure: Procedure: Removal Small stab incision was made in arm: yes Left/right: Left Preloaded contraceptive capsule trocar was placed subdermally: no Visualization of implant was obtained: no Contraceptive capsule was inserted and trocar removed: no Visualization of notch in stylet and palpation of device: no Palpation confirms placement by provider and patient: no Site was closed with steri-strips and pressure bandage applied: no Comments: REMOVAL ONLY Nexplanon Removal: Patient presents today for removal of Nexplanon. Written consent for procedure was obtained and patient was placed in supine position with left arm flexed at elbow. Skin was cleansed with alcohol/Betadine and 2cc of Lidocaine was injected underneath palpated Nexplanon at distal end. After allowing for sufficient time for numbing agent to take effect, the skin overlying the end of Nexplanon was incised with an 11inch blade scalpel. A 7.5in hemostat was inserted in the incision site to grab device and Nexplanon was released from tissue. Nexplanon implant was removed in its entirety and visualized by myself and patient. The skin was cleansed with alcohol and the incision was covered with gauze. Post-procedure care was reviewed and patient will continue with proposed plan of care. Patient was advised to call office with any questions or concerns. Follow Up: Patient is to return to the office as needed for any routine appointments. Documented by So Garcia LPN on behalf of: Diandra Roy DO documented in this encounter [facility] 02-13-2024 History of Present illness Narrative Images from the original note were not included. [address] [facility] [place] [id number] SUBJECTIVE: Patient ID: Anne Jeronimo is a 28 y.o. female. Patient presents to the office for follow up from bronchitis. She states her symptoms have resolved. She is feeling improved over all. She is not having any wheezing or shortness of breath. Feels like she can go back to work tomorrow. Cough Pertinent negatives include no chest pain, ear pain, fever, rash, sore throat or shortness of breath. The following portions of the patient's history [...] photophobia, pain, discharge and visual disturbance. Respiratory: Positive for cough. Negative for shortness of breath. Cardiovascular: Negative for chest [...] patient is not nervous/anxious. PHYSICAL EXAMINATION: Vitals: 02/13/24 1434 BP: 120/70 BP Site: Left Arm BP Postition: Sitting BP CUFF SIZE: M (9-13 inches) Pulse: 96 Resp: 16 Weight: 82.1 kg (181 lb) Physical Exam Constitutional: Appearance: She is well-developed. HENT: Head: Normocephalic and atraumatic. Right Ear: Tympanic membrane, ear canal and external ear normal. Left Ear: Tympanic membrane, ear canal and external ear normal. Eyes: Conjunctiva/sclera: Conjunctivae normal. Pupils: [...] normal. ASSESSMENT/PLAN: Anne was seen today for cough. Diagnoses and all orders for this visit: Bronchitis Follow-up: Patient is improved May return back to work tomorrow COURTNEY Chase 02/13/24 1457 documented in this encounter [facility] 02-08-2024 History of Present illness Narrative Images from the original note were not included. [address] [facility] [address] SUBJECTIVE: Patient ID: Anne Jeronimo is a 28 y.o. female. Patient presents to the office with complaints of cough for two weeks, and shortness of breath. She states she has had a cough for about two weeks and it is getting worse with some shortness of breath. Did have asthma as a child but nothing like this in the past. She denies any fever. Home covid test was negative. Did have wheezing throughout and gave her a nebulizer of albuterol and wheezing was improved. She felt better after nebulizer treatment as well. Shortness of breath improved. Will give her rx for nebulizer and tubing. Cough Associated symptoms include shortness of breath and wheezing. Pertinent negatives include no chest pain, ear pain, fever, rash or sore throat. Nasal Congestion Associated symptoms include congestion, coughing and shortness of breath. Pertinent negatives include no ear pain, neck pain, sinus pressure or sore throat. Sinusitis Associated symptoms include congestion, coughing and shortness of breath. Pertinent negatives include no ear pain, neck pain, sinus pressure or sore throat. The following portions of the patient's history were reviewed and updated as appropriate: allergies, current medications, past family history, past medical history, past social history, past surgical history and problem list. REVIEW OF SYSTEMS: Review of Systems Constitutional: Negative for fatigue, fever and unexpected weight change. HENT: Positive for congestion. Negative for ear pain, sinus pressure, sinus pain and sore throat. Eyes: Negative for photophobia, pain, discharge and visual disturbance. Respiratory: Positive for cough, shortness of breath and wheezing. Cardiovascular: Negative for chest pain, palpitations and [...] patient is not nervous/anxious. PHYSICAL EXAMINATION: Vitals: 02/08/24 0941 BP: 120/64 Pulse: 82 Resp: 16 Temp: 36.9 C (98.4 F) SpO2: 95% Weight: 79.4 kg (175 lb) Physical Exam Constitutional: Appearance: She is well-developed. HENT: Head: Normocephalic and atraumatic. Right Ear: External ear normal. Left Ear: External ear normal. Eyes: Conjunctiva/sclera: Conjunctivae normal. Pupils: Pupils are equal, round, and reactive to light. Cardiovascular: Rate and Rhythm: Normal rate and regular rhythm. Heart sounds: Normal heart sounds. Pulmonary: Effort: Pulmonary effort is normal. Breath sounds: Wheezing present. Musculoskeletal: Cervical back: Normal range of motion. Skin: General: Skin is warm and dry. Neurological: Mental Status: She is alert and oriented to person, place, and time. Psychiatric: Mood and Affect: Mood normal. ASSESSMENT/PLAN: Anne was seen today for cough, nasal congestion and sinusitis. Diagnoses and all orders for this visit: Bronchitis - albuterol (PROVENTIL,VENTOLIN) nebulizer solution 2.5 mg - albuterol (PROVENTIL,VENTOLIN) 2.5 mg /3 mL (0.083 %) nebulizer solution; Inhale 3 mL (2.5 mg total) by nebulization every 6 (six) hours as needed for wheezing. Other orders - azithromycin (ZITHROMAX) 250 mg tablet; Take 1 tablet (250 mg total) by mouth in the morning for 5 days. Take 2 tablets the first day, then 1 tablet daily for 4 days.. - predniSONE (STERAPRED DS) 10 mg tablet pack; Take by mouth daily for 8 days. 6 tabs qd x 3 d then 1 less each day with food Follow-up: Janes Masonione taper Albuterol nebulizer every 6 hours Rx sent for nebulizer machine and tubing Off work until Tuesday Follow up Tuesday If symptoms worsen go to ER COURTNEY Chase 02/08/24 1028 documented in this encounter [facility] 05-26-2023 History of Present illness Narrative Reason for Appointment: Patient ID: [...] nursing note reviewed. Exam conducted with a spike maker present. Vitals: Estimated body mass index is [...] without difficulty and patient was given [facility] order to have obtained. Follow Up: Patient is to return to our office in 4 weeks for routine OB appointment Documented by Margarita Lion LPN on behalf of: POORNIMA Hughes documented in this encounter [facility] 05-19-2023 History of Present illness Narrative Images from the original note were not included. [address] [facility] [id number] SUBJECTIVE: Patient ID: Anne Jeronimo is a [...] Chase 05/19/23 1322 documented in this encounter [facility] 04-22-2021 Evaluation note Encounter Date Diagnosis Assessment Notes Apr, Acute vaginitis (ICD-10 - N76.0) [facility] Other Evaluation note* Diagnosis Well woman exam with routine gynecological exam Routine gynecological examination Second trimester state, incidental Screening, , for anatomic survey Encounter for anatomic survey Vaginal discharge Leukorrhea, not specified as infective STD exposure Anxiety, generalized (CMS/[facility]) documented in this encounter [facility] HealthcareEvaluation note* Diagnosis Nexplanon removal Encounter for removal of etonogestrel implant documented in this encounter [facility] HealthcareEvaluation note* Diagnosis Other depression- Primary documented in this encounter [facility] System[facility] note* Diagnosis Bronchitis- Primary Bronchitis, not specified as acute or chronic documented in this encounter [facility]* Diagnosis Bronchitis- Primary Bronchitis, not specified as acute or chronic documented in this encounter [facility] note* Diagnosis Shortness of breath- Primary Wheezing documented in this encounter [facility] Narrative - Reported* Type Description Date Medical History asthma Hospitalization History child x 2 [facility] Other Instructions* Attachments The following attachments cannot be sent through Care Everywhere. * Depression ([place]inid[place]) [facility] on [facility] Attachments The following attachments cannot be sent through Care Everywhere. * Acute bronchitis (Trinid[place]) [facility] Attachments The following attachments cannot be sent through Care Everywhere. * Wheezing (Trinidadian) [facility] Summary Purpose Family History [...] and content) DATE CREATED AUTHOR 03/20/2022 [facility] DATE CREATED AUTHOR AUTHOR'S ORGANIZ ATION 05/14/2023 [facility] DATE CREATED AUTHOR AUTHOR'S ORGANIZ ATION 07/02/2023 [facility] DATE CREATED AUTHOR AUTHOR'S ORGANIZ ATION 03/03/2024 [facility] EPIC DATE CREATED AUTHOR AUTHOR'S ORGANIZ ATION 03/30/2024 [facility] Reason for Visit (unrecogniz ed section and content) Reason Comments Wheezing Reason Comments Cough Nasal Congestion Sinusitis Reason Comments New Patient Reason Comments Contraception Nexplanon removal Reason Comments Well Women Visit Routine Visit Care Teams (unrecognized sec tion and content) Union Steward Relationship Specialty Start Date End Date Hilary Lombardi APRN-[employer] K[employer]ITTING MACHINE OPERATOR [address] [place] [address] PCP - General Family Medicine 05/19/23 [facility] Ste[facility] Relationship Specialty Start Date End Date Hilary Lombardi APRN-[employer] KNITTING MACHINE OPERATOR [address] [place] [address] PCP - General Family Medicine 05/19/23 [facility] Ste[facility] Relationship Specialty Start Date End Date Hilary Lombardi APRN-[employer] KNITTING MACHINE OPERATOR [address] [place] [address] PCP - General Family Medicine 05/19/23 [facility] Ste[facility] Relationship Specialty Start Date End Date Hilary Lombardi APRN-[employer] KNITTING MACHINE OPERATOR [address] [place] [address] PCP - General Family Medicine 05/19/23 FOR [...] BE BASED ON THE PRIMARY CLINICAL RECORDS. [employer] [facility]. provides no warranty or guarantee of the accuracy or completeness of information in this document.
[2024-11-12 14:08] LABS: Age Gdln ACOG Testing Note (.); IGP, rfx Aptima HPV ASCU Note (.)
== END 2024-11-06 22:04 | disposition home or self-care (01) ==
LOC: LAB 22:03
PROVIDERS: Visit Provider Physician Assistant
DX: Z01.419 Encounter for gynecological examination (general) (routine) without abnormal findings (principal)
CPT/HCPCS: 88175